=== PATIENT | male | born 1940 | race Caucasian/White ===

== ENCOUNTER → 2017-09-28 08:56 | Outpatient (CLI) | payer MEDICARE, OTHER, SELFPAY ==
--- NOTE | 2017-09-28 | DI.MRI.S_ITS ---
PROCEDURE: MR LUMBAR SPINE WO CON INDICATIONS: Lumbar spinal stenosis TECHNIQUE: Noncontrast sagittal T1 spin echo and T2 fast echo, sagittal STIR, axial T1 and T2 fast spin echo through the lumbar spine. In cases with scoliosis, additional coronal T2 fast spin echo may be performed. COMPARISON: [facility] [place], CR, SPINE LUMB MIN 4VW, 08/27/2015, 10:40. [facility], , L-SPINE WITHOUT CONTRAST, 09/06/2015, 17:14. FINDINGS: Image quality: Excellent. Alignment and Curvature: There is normal bony alignment. Bone Marrow: Degenerative endplate signal changes at L1, L4, L5 and S1. No acute vertebral body compression fractures. Spinal Cord: Conus medullaris terminates at the T12-L1 level. Visualized cord demonstrates normal signal and size. Paraspinous Soft Tissues: No paravertebral masses. L1-L2: Lbib-[id number] loss of disc height and disc desiccation. There is broad posterior disc bulge and disc osteophyte complex. Mild bilateral facet arthropathy. The central canal is mildly narrowed. Moderate bilateral foraminal stenosis, unchanged. L2-L3: Preserved disc height. Mild disc desiccation. There is mild posterior disc bulge. Mild bilateral facet arthropathy and hypertrophy of ligamentum flavum. The central canal is patent. No foraminal stenosis. L3-L4: Preserved disc height. Mild disc desiccation. There is mild posterior disc bulge. Mild bilateral facet arthropathy and hypertrophy of ligamentum flavum. The central canal is patent. No foraminal stenosis. L4-L5: [id number]-aa-zzxrnruw loss of disc height. Mild disc desiccation. There is broad posterior disc bulge. Mild bilateral facet arthropathy and hypertrophy of ligamentum flavum. The central canal is patent. Mild bilateral foraminal stenosis, unchanged. L5-S1: Severe loss of disc height and disc desiccation. There is broad posterior disc bulge. Mild bilateral facet arthropathy. The central canal is patent. Moderate to severe bilateral foraminal stenosis, unchanged. IMPRESSION: 1. 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 2. Mild central canal stenosis at L1-L2. 3. Multilevel foraminal stenoses, moderate to severe L5-S1 bilaterally, moderate at L1 at L2 bilaterally, and mild at L4-L5 bilaterally. Dictated by: Phyllis Quintanilla M.D. on 09/28/2017 at 13:49 Transcribed by: ANGELIA on 09/28/2017 at 13:57 Approved by: Phyllis Quintanilla M.D. on 09/28/2017 at 14:40
== END ==
PROVIDERS: PCP Internal Medicine; Visit Provider Physical Medicine & Rehabilitation Pain Medicine
DX: M48.061 Spinal stenosis, lumbar region without neurogenic claudication (principal); M51.36 Other intervertebral disc degeneration, lumbar region
CPT/HCPCS: 72148

== ENCOUNTER → 2018-01-11 14:01 | Outpatient (CLI) | payer MEDICARE, OTHER, SELFPAY ==
[2018-01-11 15:04] LABS: Free T3, Triiodothyronine Free 3.11 pg/mL (2.77-5.27); Free T4, Direct Thyroxine 0.65 ng/dL (0.78-2.19); T4 Total Thyroxine 5.38 ug/dL (5.5-11.0); T7 (Free Thyroxine Index) 1.76 (1.65-3.89); Triiodothryronine T3 Uptake 32.8 % (23.5-40.5)
[2018-01-11 15:16] LABS: Thyroid Stimulating Hormone 3.17 uIU/mL (0.47-4.68)
== END ==
PROVIDERS: PCP Internal Medicine; Visit Provider Internal Medicine
DX: E03.9 Hypothyroidism, unspecified (principal)
CPT/HCPCS: 36415; 84436; 84439; 84443; 84479; 84481

== ENCOUNTER 2018-01-13 07:30 | Outpatient (RCR) | payer MEDICARE, OTHER, SELFPAY ==
--- NOTE | 2017-12-14 08:43 | PT.OIE ---
Current Diagnoses Strain of muscle, fascia and tendon of the posterior muscle group at thigh level, left thigh, initial encounter (12/13/17) Provider Visit Care Team Role Provider Type Juliano Chaves MD Primary Care Provider Physician Specialty: Internal Medicine Address: [address] [place] [address], [id number] Email: Iam Patricio MD Attending Provider Physician Specialty: Physical Medicine and Rehab Address: [address] [place] [address], [id number] Email: Physical Therapy Initial Evaluation PT-OP-A Visit Information Start: 12/13/17 14:24 Freq: Status: Active Protocol: Document 12/13/17 14:25 EA (Rec: 12/13/17 14:29 EA [id number]) Out-Patient Physical Therapy Visit Information Visit Information Visit Type Initial Evaluation Visit Start Time 13:45 Visit Stop Time 14:30 Total Visit Minutes 1 Evaluation Information Evaluation Date 12/13/17 PT-OP-B Current Condition Start: 12/13/17 14:24 Freq: Status: Active Protocol: Document 12/13/17 14:25 EA (Rec: 12/13/17 14:29 EA [id number]) Current Condition History of Current Condition Onset Date 2 weeks ago History of Current Condition Present condition started two weeks ago while participating in a half marathon event in [place]. Pt reports he felt initially cramp at the left posterior thigh that made him slow down; patient denies any popping sound during the injury and did not see any bruises or hematoma. Patient applied ICE and rest after the event but pain and difficulty of getting back to usual speed of walking still persist , however is improving. Patient seen his doctor due his back pain which a chronic issue and requested to have referral for his left thigh. Patient was then referred to PT with a diagnosis of left hamstring strain and low back pain. Patient reports he comes today for the main purpose of improving left hamstring but not the low back pain as he mentioned that he is having low back optional treatment. No MRI or other imaging for the knee/thigh performed recently . Prior Treatments and Tests 1st Low back cortizone shot Future Testing and Treatments Planned 2 cortizone shots remaining for lower back Treatment Goals Patient/Caregiver Goals Back to previous level of function, daily > 2 miles of walk Prior Functional Status Baseline Function- ADL's Independent Baseline Function- Mobility Independent Baseline Function- Recreation/Hobbies Daily long walks Current Functional Impairments (Reported) Functional Limitations- ADL's Indep Functional Limitations- Mobility/Gait Difficulty with increasing speed of walking Functional Limitations- Recreation/ Unable to participate with Hobbies marathon due to pain PT-OP-C Subjective Start: 12/13/17 14:24 Freq: Status: Active Protocol: Document 12/13/17 16:55 EA (Rec: 12/13/17 17:15 EA [id number]) OP-PT Subjective Patient Comments Patient Comments Pt wants to get better and so he could back to his daily speed walk. Patient Reported Progress Improving Patient Questionnaires Lower Extremity Functional Scale LEFS Score 55 LEFS Impairment 20 to 39% Impaired (Score 48- 62) OP-PT Pain Assessment Pain Assessment Grid Paper Pain Assessment Grid Completed Yes Home Pain Medication Use Pain Medications Used No Pain Behaviors Pain Behaviors Moaning Comments Pain Comments Pain was enough to stop wlaking and/or altered gait PT-OP-G Mobility & Gait Start: 12/13/17 14:24 Freq: Status: Active Protocol: Document 12/13/17 16:55 EA (Rec: 12/13/17 17:15 EA [id number]) OP Gait Assessment Gait Gait Assistance Required: Independent Able to Maintain Weight Bearing Status Yes During Gait Assistive Devices Assistive Device None Gait Deviations General Gait Pattern Antalgic Comments Gait Comments Increased speed altered normal gait into antalgic PT-OP-J Posture/Palpation/Skin Start: 12/13/17 14:24 Freq: Status: Active Protocol: Document 12/13/17 16:55 EA (Rec: 12/13/17 17:15 EA [id number]) Posture Evaluation Position Standing Pelvis Posture Posterior Tilted Knee Posture (L) Neutral (R) Neutral Patellar Posture (L) Neutral (R) Neutral Ankle/Foot Posture (L) Neutral (R) Neutral Palpation Assessment Location One Palpation Location Posterior left thigh Palpation Findings Soft Tissue Tightness Tenderness PT-OP-K Range of Motion Start: 12/13/17 14:24 Freq: Status: Active Protocol: Document 12/13/17 16:55 EA (Rec: 12/13/17 17:15 EA [id number]) Hip Goniometric Range of Motion Hip Measured in Degrees Left Active Hip ROM WFL Yes Knee Goniometric Range of Motion Knee Measured in Degrees Right Knee ROM WFL Yes Left Knee ROM WFL Yes PT-OP-L Special Tests Start: 12/13/17 14:24 Freq: Status: Active Protocol: Document 12/13/17 16:55 EA (Rec: 12/13/17 17:15 EA [id number]) Special Tests Hip Special Tests Straight Leg Raise Test Results negative Crystal's Test Test Results Tight RF Knee Special Tests Mansoor's Test Test Results - Other Special Tests Special Tests Positive with 90-90: hmastring tightness PT-OP-M Strength Start: 12/13/17 14:24 Freq: Status: Active Protocol: Document 12/13/17 16:55 EA (Rec: 12/13/17 17:15 EA [id number]) Hip Strength Hip Manual Muscle Testing Right Flexion (L2) 5 Normal Extension (S1) 5 Normal Abduction 5 Normal Adduction 5 Normal External Rotation 5 Normal Internal Rotation 5 Normal Left Flexion (L2) 5 Normal Extension (S1) 4 Good Abduction 5 Normal Adduction 5 Normal External Rotation 5 Normal Internal Rotation 5 Normal Knee Strength Knee Manual Muscle Testing Right Flexion (S2) 5 Normal Reason Not Measured WFL Left Flexion (S2) 4- Good- Extension (L3) 5 Normal PT-OP-Q Treatments Start: 12/13/17 14:24 Freq: Status: Active Protocol: Document 12/13/17 16:55 EA (Rec: 12/13/17 17:15 EA [id number]) Self-Care/Home Management Treatment Education Patient Education Home Exercise Program Pain Management Other Education Discussed importance of warm- up, icing and self massage/ stretching. PT-OP-R Modalities Start: 12/13/17 14:24 Freq: Status: Active Protocol: Document 12/13/17 16:55 EA (Rec: 12/13/17 17:15 EA [id number]) Electric Stimulation Electric Stimulation Interferential Current (IFC) Body Location left hamstring midpoint Duration (Minutes) 15 Intensity 14 Patient Position Sidelying Combined With Heat/Cold Cold Pack Ultrasound Therapy Treatment Left Posterior Proximal Thigh Patient Position Prone Coupling Medium Ultrasound Gel Frequency Setting (mHz) 1 Mode Setting Continuous Duty Cycle 10% Intensity Setting (w/cm2) 1.5 PT-OP-T Assessment and Plan Start: 12/13/17 14:24 Freq: Status: Active Protocol: Document 12/13/17 16:55 EA (Rec: 12/13/17 17:15 EA [id number]) Physical Therapy Assessment Rehab Potential Rehabilitation Potential Excellent Evaluation Complexity Number of Personal Factors/Comorbidities 1-2 Number of Body Systems Impaired 1-2 Impairments Impairments Activity Tolerance Pain Soft Tissue Mobility Goals Four Impairment Decreased left knee flexors strength Supervisor Housecleaner Goal (LTG) Patient will increase left knee flexors strength by 1/2 grade to enhance functional walk. Three Impairment Grade 2 tenderness to left hamstring Supervisor Housecleaner Goal (LTG) Patient will exhibit no tenderness to left hamstring LTG Duration 4 wks Two Impairment Decreased soft tissue functional excursion hamstring and rectus femoris Prison Goal (LTG) Patient will exhibit normal normal hasmtring and rectus femoris flexibility to decreased/prevent injury and improve functional mobility. LTG Duration 4 wks One Impairment LEFS impairment scale of 33% impaired Supervisor Housecleaner Goal (LTG) Patient will have LEFS impairment scale of 15% impaired LTG Duration 4 wks Assessment Summary Assessment Pleasant 77 y/o male patient demonstrates difficulty with walking and sitting tolerance due to pain to left hamstring. Today patient exhibits grade 2 tenderness over left hamstring (origin, midpoint), minimal declined with knee flexor strength, decreased flexibility to hamstrings and rectus femoris. Tests reveals hamstring strain with no indication of partial or full tear. Patient will benefit with skilled PT to enhance recovery and bring back to previous level of function. Physical Therapy Plan Frequency and Duration Frequency of Treatment 2x/Week Duration of Treatment 8 wks Plan of Care Start Date 12/13/17 Plan of Care End Date 02/07/18 Therapeutic Interventions Therapeutic Interventions Home Exercise Program Manual Therapy Patient/Caregiver Education Self-Care/Home Management Soft Tissue Mobilization Therapeutic Exercises Modalities Cold Pack/Ice Massage Electric Stimulation Hot Packs Ultrasound Next Visit Focus/Plan Next Note Type Treatment Note Next Visit Plan US, STM,HEAT/ES, stretch
--- NOTE | 2017-12-14 08:45 | PT.OPPOC ---
Current Diagnoses Strain of muscle, fascia and tendon of the posterior muscle group at thigh level, left thigh, initial encounter (12/13/17) Provider Visit Care Team Role Provider Type Juliano Cahves MD Primary Care Provider Physician Specialty: Internal Medicine Address: [address] [place] [address], [phone] Email: Iam Patricio MD Attending Provider Physician Specialty: Physical Medicine and Rehab Address: [address] [place] [address], [phone] Email: Plan Of Care PT-OP-T Assessment and Plan Start: 12/13/17 14:24 Freq: Status: Active Protocol: Document 12/13/17 16:55 EA (Rec: 12/13/17 17:15 EA [id number]) Physical Therapy Assessment Rehab Potential Rehabilitation Potential Excellent Evaluation Complexity Number of Personal Factors/Comorbidities 1-2 Number of Body Systems Impaired 1-2 Impairments Impairments Activity Tolerance Pain Soft Tissue Mobility Goals Four Impairment Decreased left knee flexors strength Custodial Goal (LTG) Patient will increase left knee flexors strength by 1/2 grade to enhance functional walk. Three Impairment Grade 2 tenderness to left hamstring Custodial Goal (LTG) Patient will exhibit no tenderness to left hamstring LTG Duration 4 wks Two Impairment Decreased soft tissue functional excursion hamstring and rectus femoris Social Services Assistant Goal (LTG) Patient will exhibit normal normal hamstring and rectus femoris flexibility to decreased/prevent injury and improve functional mobility. LTG Duration 4 wks One Impairment LEFS impairment scale of 33% impaired Social Services Assistant Goal (LTG) Patient will have LEFS impairment scale of 15% impaired LTG Duration 4 wks Assessment Summary Assessment Pleasant 77 y/o male patient demonstrates difficulty with walking and sitting tolerance due to pain to left hamstring. Today patient exhibits grade 2 tenderness over left hamstring (origin, midpoint), minimal declined with knee flexor strength, decreased flexibility to hamstrings and rectus femoris. Tests reveals hamstring strain with no indication of partial or full tear. Patient will benefit with skilled PT to enhance recovery and bring back to previous level of function. Physical Therapy Plan Frequency and Duration Frequency of Treatment 2x/Week Duration of Treatment 8 wks Plan of Care Start Date 12/13/17 Plan of Care End Date 02/07/18 Therapeutic Interventions Therapeutic Interventions Home Exercise Program Manual Therapy Patient/Caregiver Education Self-Care/Home Management Soft Tissue Mobilization Therapeutic Exercises Modalities Cold Pack/Ice Massage Electric Stimulation Hot Packs Ultrasound Next Visit Focus/Plan Next Note Type Treatment Note Next Visit Plan US, STM,HEAT/ES, stretch Plan of Care Dates Plan of Care Start Date 12/13/17 Plan of Care End Date 02/07/18 Please Sign and Return: I have reviewed this Plan of Care and certify that the skilled therapy services above are required to meet the patient?s needs. Physician Signature Date Printed Name and Credentials Clinical Instructor Signature Printed Name and Credentials
--- NOTE | 2017-12-16 17:26 | PT.OTN ---
Current Diagnoses Strain of muscle, fascia and tendon of the posterior muscle group at thigh level, left thigh, initial encounter (12/16/17) Physical Therapy Treatment Note PT-OP-A Visit Information Start: 12/13/17 14:24 Freq: Status: Active Protocol: Document 12/16/17 15:56 EA (Rec: 12/16/17 15:57 EA [id number]) Out-Patient Physical Therapy Visit Information Visit Information Visit Type Treatment Note Visit Start Time 15:15 Visit Stop Time 16:00 Total Visit Minutes 2 PT-OP-B Current Condition Start: 12/13/17 14:24 Freq: Status: Active Protocol: Document 12/13/17 14:25 EA (Rec: 12/13/17 14:29 EA [id number]) Current Condition History of Current Condition Onset Date 2 weeks ago History of Current Condition Present condition started two weeks ago while participating in a half marathon event in [place]. Pt reports he felt initially cramp at the left posterior thigh that made him slow down; patient denies any popping sound during the injury and did not see any bruises or hematoma. Patient applied ICE and rest after the event but pain and difficulty of getting back to usual speed of walking still persist , however is improving. Patient seen his doctor due his back pain which a chronic issue and requested to have refferral for his left thigh. Patient was then referred to PT with a diagnosis of left hamstring strain and low back pain. Patient reports he comes today for the main purpose of improving left hamsting but not the low back pain as he mentioned that he is having low back optional treatment. No MRI or other imagin for the knee/thigh performed recently . Prior Treatments and Tests 1st Low back cortizone shot Future Testing and Treatments Planned 2 cortizone shots remaining for lower back Treatment Goals Patient/Caregiver Goals Back to previous level of function, daily > 2 miles of walk Prior Functional Status Baseline Function- ADL's Independent Baseline Function- Mobility Independent Baseline Function- Recreation/Hobbies Daily long walks Current Functional Impairments (Reported) Functional Limitations- ADL's Indep Functional Limitations- Mobility/Gait Difficulty with increasing speed of walking Functional Limitations- Recreation/ Unable to participate with Hobbies marthon due to pain PT-OP-C Subjective Start: 12/13/17 14:24 Freq: Status: Active Protocol: Document 12/16/17 15:56 EA (Rec: 12/16/17 15:57 EA [id number]) OP-PT Subjective Patient Comments Patient Comments Pt reports pain is less after ice application three times a day. Patient Reported Progress Improving PT-OP-G Mobility & Gait Start: 12/13/17 14:24 Freq: Status: Active Protocol: Document 12/13/17 16:55 EA (Rec: 12/13/17 17:15 EA [id number]) OP Gait Assessment Gait Gait Assistance Required: Independent Able to Maintain Weight Bearing Status Yes During Gait Assistive Devices Assistive Device None Gait Deviations General Gait Pattern Antalgic Comments Gait Comments Increased speed altered normal gait into antalgic PT-OP-J Posture/Palpation/Skin Start: 12/13/17 14:24 Freq: Status: Active Protocol: Document 12/13/17 16:55 EA (Rec: 12/13/17 17:15 EA [id number]) Posture Evaluation Position Standing Pelvis Posture Posterior Tilted Knee Posture (L) Neutral (R) Neutral Patellar Posture (L) Neutral (R) Neutral Ankle/Foot Posture (L) Neutral (R) Neutral Palpation Assessment Location One Palpation Location Posterior left thigh Palpation Findings Soft Tissue Tightness Tenderness PT-OP-K Range of Motion Start: 12/13/17 14:24 Freq: Status: Active Protocol: Document 12/13/17 16:55 EA (Rec: 12/13/17 17:15 EA [id number]) Hip Goniometric Range of Motion Hip Measured in Degrees Left Active Hip ROM WFL Yes Knee Goniometric Range of Motion Knee Measured in Degrees Right Knee ROM WFL Yes Left Knee ROM WFL Yes PT-OP-L Special Tests Start: 12/13/17 14:24 Freq: Status: Active Protocol: Document 12/13/17 16:55 EA (Rec: 12/13/17 17:15 EA [id number]) Special Tests Hip Special Tests Straight Leg Raise Test Results negative Crystal's Test Test Results Tight RF Knee Special Tests Mansoor's Test Test Results - Other Special Tests Special Tests Positive with 90-90: hmastring tightness PT-OP-M Strength Start: 12/13/17 14:24 Freq: Status: Active Protocol: Document 12/13/17 16:55 EA (Rec: 12/13/17 17:15 EA [id number]) Hip Strength Hip Manual Muscle Testing Right Flexion (L2) 5 Normal Extension (S1) 5 Normal Abduction 5 Normal Adduction 5 Normal External Rotation 5 Normal Internal Rotation 5 Normal Left Flexion (L2) 5 Normal Extension (S1) 4 Good Abduction 5 Normal Adduction 5 Normal External Rotation 5 Normal Internal Rotation 5 Normal Knee Strength Knee Manual Muscle Testing Right Flexion (S2) 5 Normal Reason Not Measured WFL Left Flexion (S2) 4- Good- Extension (L3) 5 Normal PT-OP-Q Treatments Start: 12/13/17 14:24 Freq: Status: Active Protocol: Document 12/16/17 15:24 EA (Rec: 12/16/17 15:56 EA [id number]) Therapeutic Exercises Supine Exercises 1 Supine Exercise Name Hams stretch Side left Prone Exercises 1 Prone Exercise Name quads stretch Manual Therapy Treatment Soft Tissue Mobilization 1 Body Location left Hams Mobilization Type Myofascial Release Rolling Sustained Pressure Intensity/Depth Moderate Body Position Prone PT-OP-R Modalities Start: 12/13/17 14:24 Freq: Status: Active Protocol: Document 12/16/17 15:24 EA (Rec: 12/16/17 15:56 EA [id number]) Electric Stimulation Electric Stimulation Interferential Current (IFC) Body Location left hamstring midpoint Duration (Minutes) 15 Intensity 14 Patient Position Sidelying Combined With Heat/Cold Cold Pack Hot Pack/Cold Pack Treatment Hot Pack Location left hamstring/ pralumbars Patient Position Prone Treatment Duration (minutes) 8 Comments apply before insonation PT-OP-T Assessment and Plan Start: 12/13/17 14:24 Freq: Status: Active Protocol: Document 12/16/17 15:24 EA (Rec: 12/16/17 15:56 EA [id number]) Physical Therapy Assessment Assessment Summary Assessment Tolerated tretament well. Physical Therapy Plan Next Visit Focus/Plan Next Visit Plan Cont with current plan
--- NOTE | 2017-12-21 14:00 | PT.OTN ---
Current Diagnoses Strain of muscle, fascia and tendon of the posterior muscle group at thigh level, left thigh, initial encounter (12/21/17) Physical Therapy Treatment Note PT-OP-A Visit Information Start: 12/13/17 14:24 Freq: Status: Active Protocol: Document 12/21/17 13:34 EA (Rec: 12/21/17 13:41 EA [id number]) Out-Patient Physical Therapy Visit Information Visit Information Visit Type Treatment Note Visit Start Time 13:00 Visit Stop Time 13:53 Total Visit Minutes 3 PT-OP-B Current Condition Start: 12/13/17 14:24 Freq: Status: Active Protocol: Document 12/13/17 14:25 EA (Rec: 12/13/17 14:29 EA [id number]) Current Condition History of Current Condition Onset Date 2 weeks ago History of Current Condition Present condition started two weeks ago while participating in a half marathon event in [place]. Pt reports he felt initially cramp at the left posterior thigh that made him slow down; patient denies any popping sound during the injury and did not see any bruises or hematoma. Patient applied ICE and rest after the event but pain and difficulty of getting back to usual speed of walking still persist , however is improving. Patient seen his doctor due his back pain which a chronic issue and requested to have referral for his left thigh. Patient was then referred to PT with a diagnosis of left hamstring strain and low back pain. Patient reports he comes today for the main purpose of improving left hamsting but not the low back pain as he mentioned that he is having low back optional treatment. No MRI or other imaging for the knee/thigh performed recently . Prior Treatments and Tests 1st Low back cortizone shot Future Testing and Treatments Planned 2 cortizone shots remaining for lower back Treatment Goals Patient/Caregiver Goals Back to previous level of function, daily > 2 miles of walk Prior Functional Status Baseline Function- ADL's Independent Baseline Function- Mobility Independent Baseline Function- Recreation/Hobbies Daily long walks Current Functional Impairments (Reported) Functional Limitations- ADL's Indep Functional Limitations- Mobility/Gait Difficulty with increasing speed of walking Functional Limitations- Recreation/ Unable to participate with Hobbies marthon due to pain PT-OP-C Subjective Start: 12/13/17 14:24 Freq: Status: Active Protocol: Document 12/21/17 13:34 EA (Rec: 12/21/17 13:41 EA [id number]) OP-PT Subjective Patient Comments Patient Comments Pt reports able to wlak more than 3 miles with very less muscle tightness at this time; states that he is feeling much better at this time. PT-OP-G Mobility & Gait Start: 12/13/17 14:24 Freq: Status: Active Protocol: Document 12/13/17 16:55 EA (Rec: 12/13/17 17:15 EA [id number]) OP Gait Assessment Gait Gait Assistance Required: Independent Able to Maintain Weight Bearing Status Yes During Gait Assistive Devices Assistive Device None Gait Deviations General Gait Pattern Antalgic Comments Gait Comments Increased speed altered normal gait into antalgic PT-OP-J Posture/Palpation/Skin Start: 12/13/17 14:24 Freq: Status: Active Protocol: Document 12/13/17 16:55 EA (Rec: 12/13/17 17:15 EA [id number]) Posture Evaluation Position Standing Pelvis Posture Posterior Tilted Knee Posture (L) Neutral (R) Neutral Patellar Posture (L) Neutral (R) Neutral Ankle/Foot Posture (L) Neutral (R) Neutral Palpation Assessment Location One Palpation Location Posterior left thigh Palpation Findings Soft Tissue Tightness Tenderness PT-OP-K Range of Motion Start: 12/13/17 14:24 Freq: Status: Active Protocol: Document 12/13/17 16:55 EA (Rec: 12/13/17 17:15 EA [id number]) Hip Goniometric Range of Motion Hip Measured in Degrees Left Active Hip ROM WFL Yes Knee Goniometric Range of Motion Knee Measured in Degrees Right Knee ROM WFL Yes Left Knee ROM WFL Yes PT-OP-L Special Tests Start: 12/13/17 14:24 Freq: Status: Active Protocol: Document 12/13/17 16:55 EA (Rec: 12/13/17 17:15 EA [id number]) Special Tests Hip Special Tests Straight Leg Raise Test Results negative Crystal's Test Test Results Tight RF Knee Special Tests Mansoor's Test Test Results - Other Special Tests Special Tests Positive with 90-90: hmastring tightness PT-OP-M Strength Start: 12/13/17 14:24 Freq: Status: Active Protocol: Document 12/13/17 16:55 EA (Rec: 12/13/17 17:15 EA [id number]) Hip Strength Hip Manual Muscle Testing Right Flexion (L2) 5 Normal Extension (S1) 5 Normal Abduction 5 Normal Adduction 5 Normal External Rotation 5 Normal Internal Rotation 5 Normal Left Flexion (L2) 5 Normal Extension (S1) 4 Good Abduction 5 Normal Adduction 5 Normal External Rotation 5 Normal Internal Rotation 5 Normal Knee Strength Knee Manual Muscle Testing Right Flexion (S2) 5 Normal Reason Not Measured WFL Left Flexion (S2) 4- Good- Extension (L3) 5 Normal PT-OP-Q Treatments Start: 12/13/17 14:24 Freq: Status: Active Protocol: Document 12/21/17 13:34 EA (Rec: 12/21/17 13:41 EA [id number]) Therapeutic Exercises Supine Exercises 1 Supine Exercise Name Hams stretch Side left Prone Exercises 2 Prone Exercise Name prone knee bending Side left Resistance 2 lbs Reps/Minutes x 15 reps x 2 1 Prone Exercise Name quads stretch Manual Therapy Treatment Soft Tissue Mobilization 1 Body Location left Hams Mobilization Type Myofascial Release Rolling Sustained Pressure Intensity/Depth Moderate Body Position Prone PT-OP-R Modalities Start: 12/13/17 14:24 Freq: Status: Active Protocol: Document 12/21/17 13:34 EA (Rec: 12/21/17 13:41 EA [id number]) Electric Stimulation Electric Stimulation Interferential Current (IFC) Body Location left hamstring midpoint Duration (Minutes) 15 Intensity 14 Patient Position Prone Combined With Heat/Cold Cold Pack Ultrasound Therapy Treatment Left Posterior Proximal Thigh Patient Position Prone Coupling Medium Ultrasound Gel Frequency Setting (mHz) 1 Mode Setting Continuous Intensity Setting (w/cm2) 1.5 PT-OP-T Assessment and Plan Start: 12/13/17 14:24 Freq: Status: Active Protocol: Document 12/21/17 13:34 EA (Rec: 12/21/17 13:41 EA [id number]) Physical Therapy Assessment Assessment Summary Assessment Less tightness at this time. Patient is progressing well. Physical Therapy Plan Next Visit Focus/Plan Next Note Type Treatment Note Next Visit Plan Cont with current plan
--- NOTE | 2017-12-23 13:33 | PT.OTN ---
Current Diagnoses Strain of muscle, fascia and tendon of the posterior muscle group at thigh level, left thigh, initial encounter (12/23/17) Physical Therapy Treatment Note PT-OP-A Visit Information Start: 12/13/17 14:24 Freq: Status: Active Protocol: Document 12/23/17 12:14 EA (Rec: 12/23/17 12:57 EA [id number]) Out-Patient Physical Therapy Visit Information Visit Information Visit Type Treatment Note Visit Start Time 13:00 Visit Stop Time 13:53 Total Visit Minutes 4 PT-OP-B Current Condition Start: 12/13/17 14:24 Freq: Status: Active Protocol: Document 12/13/17 14:25 EA (Rec: 12/13/17 14:29 EA [id number]) Current Condition History of Current Condition Onset Date 2 weeks ago History of Current Condition Present condition started two weeks ago while participating in a half marathon event in [place]. Pt reports he felt initially cramp at the left posterior thigh that made him slow down; patient denies any popping sound during the injury and did not see any bruises or hematoma. Patient applied ICE and rest after the event but pain and difficulty of getting back to usual speed of walking still persist , however is improving. Patient seen his doctor due his back pain which a chronic issue and requested to have refferral for his left thigh. Patient was then referred to PT with a diagnosis of left hamstring strain and low back pain. Patient reports he comes today for the main purpose of improving left hamsting but not the low back pain as he mentioned that he is having low back optional treatment. No MRI or other imagin for the knee/thigh performed recently . Prior Treatments and Tests 1st Low back cortizone shot Future Testing and Treatments Planned 2 cortizone shots remaining for lower back Treatment Goals Patient/Caregiver Goals Back to previous level of function, daily > 2 miles of walk Prior Functional Status Baseline Function- ADL's Independent Baseline Function- Mobility Independent Baseline Function- Recreation/Hobbies Daily long walks Current Functional Impairments (Reported) Functional Limitations- ADL's Indep Functional Limitations- Mobility/Gait Difficulty with increasing speed of walking Functional Limitations- Recreation/ Unable to participate with Hobbies marthon due to pain PT-OP-C Subjective Start: 12/13/17 14:24 Freq: Status: Active Protocol: Document 12/23/17 12:14 EA (Rec: 12/23/17 12:57 EA [id number]) OP-PT Subjective Patient Comments Patient Comments Pt reports had an interval speed walks and no reports of condition aggravation. Overall patient reports he's feeling great. PT-OP-G Mobility & Gait Start: 12/13/17 14:24 Freq: Status: Active Protocol: Document 12/13/17 16:55 EA (Rec: 12/13/17 17:15 EA [id number]) OP Gait Assessment Gait Gait Assistance Required: Independent Able to Maintain Weight Bearing Status Yes During Gait Assistive Devices Assistive Device None Gait Deviations General Gait Pattern Antalgic Comments Gait Comments Increased speed altered normal gait into antalgic PT-OP-J Posture/Palpation/Skin Start: 12/13/17 14:24 Freq: Status: Active Protocol: Document 12/13/17 16:55 EA (Rec: 12/13/17 17:15 EA [id number]) Posture Evaluation Position Standing Pelvis Posture Posterior Tilted Knee Posture (L) Neutral (R) Neutral Patellar Posture (L) Neutral (R) Neutral Ankle/Foot Posture (L) Neutral (R) Neutral Palpation Assessment Location One Palpation Location Posterior left thigh Palpation Findings Soft Tissue Tightness Tenderness PT-OP-K Range of Motion Start: 12/13/17 14:24 Freq: Status: Active Protocol: Document 12/13/17 16:55 EA (Rec: 12/13/17 17:15 EA [id number]) Hip Goniometric Range of Motion Hip Measured in Degrees Left Active Hip ROM WFL Yes Knee Goniometric Range of Motion Knee Measured in Degrees Right Knee ROM WFL Yes Left Knee ROM WFL Yes PT-OP-L Special Tests Start: 12/13/17 14:24 Freq: Status: Active Protocol: Document 12/13/17 16:55 EA (Rec: 12/13/17 17:15 EA [id number]) Special Tests Hip Special Tests Straight Leg Raise Test Results negative Crystal's Test Test Results Tight RF Knee Special Tests Mansoor's Test Test Results - Other Special Tests Special Tests Positive with 90-90: hmastring tightness PT-OP-M Strength Start: 12/13/17 14:24 Freq: Status: Active Protocol: Document 12/13/17 16:55 EA (Rec: 12/13/17 17:15 EA [id number]) Hip Strength Hip Manual Muscle Testing Right Flexion (L2) 5 Normal Extension (S1) 5 Normal Abduction 5 Normal Adduction 5 Normal External Rotation 5 Normal Internal Rotation 5 Normal Left Flexion (L2) 5 Normal Extension (S1) 4 Good Abduction 5 Normal Adduction 5 Normal External Rotation 5 Normal Internal Rotation 5 Normal Knee Strength Knee Manual Muscle Testing Right Flexion (S2) 5 Normal Reason Not Measured WFL Left Flexion (S2) 4- Good- Extension (L3) 5 Normal PT-OP-Q Treatments Start: 12/13/17 14:24 Freq: Status: Active Protocol: Document 12/23/17 12:14 EA (Rec: 12/23/17 12:57 EA [id number]) Cardio Equipment Treadmill Duration (Minutes) 5 Speed 3-4.5 Other inetrval 30 seconds up speed Therapeutic Exercises Supine Exercises 2 Supine Exercise Name duoble to single bridge Reps/Minutes x 10 reps x 2 1 Supine Exercise Name Hams stretch Side left Prone Exercises 2 Prone Exercise Name prone knee bending Side left Resistance 4.5 lbs Reps/Minutes x 15 reps x 2 1 Prone Exercise Name quads stretch Manual Therapy Treatment Soft Tissue Mobilization 1 Body Location left Hams Mobilization Type Myofascial Release Rolling Sustained Pressure Intensity/Depth Moderate Body Position Prone PT-OP-R Modalities Start: 12/13/17 14:24 Freq: Status: Active Protocol: Document 12/23/17 12:14 EA (Rec: 12/23/17 12:57 EA [id number]) Electric Stimulation Electric Stimulation Interferential Current (IFC) Body Location left hamstring midpoint Duration (Minutes) 15 Intensity 14 Patient Position Sidelying Combined With Heat/Cold Hot Pack PT-OP-T Assessment and Plan Start: 12/13/17 14:24 Freq: Status: Active Protocol: Document 12/23/17 12:14 EA (Rec: 12/23/17 12:57 EA [id number]) Physical Therapy Assessment Assessment Summary Assessment Tolerated treatment well; patient is progressing well. Cont with current plan. Physical Therapy Plan Next Visit Focus/Plan Next Note Type Treatment Note Next Visit Plan Cont with current plan
--- NOTE | 2017-12-28 16:46 | PT.OTN ---
Current Diagnoses Strain of muscle, fascia and tendon of the posterior muscle group at thigh level, left thigh, initial encounter (12/28/17) Physical Therapy Treatment Note PT-OP-A Visit Information Start: 12/13/17 14:24 Freq: Status: Active Protocol: Document 12/28/17 14:28 EA (Rec: 12/28/17 15:53 EA [id number]) Out-Patient Physical Therapy Visit Information Visit Information Visit Type Treatment Note Visit Start Time 14:30 Visit Stop Time 15:23 Total Visit Minutes 53 Visit Number 5 PT-OP-B Current Condition Start: 12/13/17 14:24 Freq: Status: Active Protocol: Document 12/13/17 14:25 EA (Rec: 12/13/17 14:29 EA [id number]) Current Condition History of Current Condition Onset Date 2 weeks ago History of Current Condition Present condition started two weeks ago while participating in a half marathon event in [place]. Pt reports he felt initially cramp at the left posterior thigh that made him slow down; patient denies any popping sound during the injury and did not see any bruises or hematoma. Patient applied ICE and rest after the event but pain and difficulty of getting back to usual speed of walking still persist , however is improving. Patient seen his doctor due his back pain which a chronic issue and requested to have refferral for his left thigh. Patient was then referred to PT with a diagnosis of left hamstring strain and low back pain. Patient reports he comes today for the main purpose of improving left hamsting but not the low back pain as he mentioned that he is having low back optional treatment. No MRI or other imagin for the knee/thigh performed recently . Prior Treatments and Tests 1st Low back cortizone shot Future Testing and Treatments Planned 2 cortizone shots remaining for lower back Treatment Goals Patient/Caregiver Goals Back to previous level of function, daily > 2 miles of walk Prior Functional Status Baseline Function- ADL's Independent Baseline Function- Mobility Independent Baseline Function- Recreation/Hobbies Daily long walks Current Functional Impairments (Reported) Functional Limitations- ADL's Indep Functional Limitations- Mobility/Gait Difficulty with increasing speed of walking Functional Limitations- Recreation/ Unable to participate with Hobbies marthon due to pain PT-OP-C Subjective Start: 12/13/17 14:24 Freq: Status: Active Protocol: Document 12/28/17 14:28 EA (Rec: 12/28/17 15:53 EA [id number]) OP-PT Subjective Patient Comments Patient Comments Pt reports left hamstring pain increased after interval speed walking; states consistent with ICE application and is getting better at this time. Patient Reported Progress Improving PT-OP-G Mobility & Gait Start: 12/13/17 14:24 Freq: Status: Active Protocol: Document 12/13/17 16:55 EA (Rec: 12/13/17 17:15 EA [id number]) OP Gait Assessment Gait Gait Assistance Required: Independent Able to Maintain Weight Bearing Status Yes During Gait Assistive Devices Assistive Device None Gait Deviations General Gait Pattern Antalgic Comments Gait Comments Increased speed altered normal gait into antalgic PT-OP-J Posture/Palpation/Skin Start: 12/13/17 14:24 Freq: Status: Active Protocol: Document 12/13/17 16:55 EA (Rec: 12/13/17 17:15 EA [id number]) Posture Evaluation Position Standing Pelvis Posture Posterior Tilted Knee Posture (L) Neutral (R) Neutral Patellar Posture (L) Neutral (R) Neutral Ankle/Foot Posture (L) Neutral (R) Neutral Palpation Assessment Location One Palpation Location Posterior left thigh Palpation Findings Soft Tissue Tightness Tenderness PT-OP-K Range of Motion Start: 12/13/17 14:24 Freq: Status: Active Protocol: Document 12/13/17 16:55 EA (Rec: 12/13/17 17:15 EA [id number]) Hip Goniometric Range of Motion Hip Measured in Degrees Left Active Hip ROM WFL Yes Knee Goniometric Range of Motion Knee Measured in Degrees Right Knee ROM WFL Yes Left Knee ROM WFL Yes PT-OP-L Special Tests Start: 12/13/17 14:24 Freq: Status: Active Protocol: Document 12/13/17 16:55 EA (Rec: 12/13/17 17:15 EA [id number]) Special Tests Hip Special Tests Straight Leg Raise Test Results negative Crystal's Test Test Results Tight RF Knee Special Tests Mansoor's Test Test Results - Other Special Tests Special Tests Positive with 90-90: hmastring tightness PT-OP-M Strength Start: 12/13/17 14:24 Freq: Status: Active Protocol: Document 12/13/17 16:55 EA (Rec: 12/13/17 17:15 EA [id number]) Hip Strength Hip Manual Muscle Testing Right Flexion (L2) 5 Normal Extension (S1) 5 Normal Abduction 5 Normal Adduction 5 Normal External Rotation 5 Normal Internal Rotation 5 Normal Left Flexion (L2) 5 Normal Extension (S1) 4 Good Abduction 5 Normal Adduction 5 Normal External Rotation 5 Normal Internal Rotation 5 Normal Knee Strength Knee Manual Muscle Testing Right Flexion (S2) 5 Normal Reason Not Measured WFL Left Flexion (S2) 4- Good- Extension (L3) 5 Normal PT-OP-Q Treatments Start: 12/13/17 14:24 Freq: Status: Active Protocol: Document 12/28/17 14:28 EA (Rec: 12/28/17 15:53 EA [id number]) Cardio Equipment Treadmill Duration (Minutes) 5 Speed 2-3: elav 6 Other Cont Therapeutic Exercises Supine Exercises 2 Supine Exercise Name duoble to single bridge Reps/Minutes x 10 reps x 2 1 Supine Exercise Name Hams stretch Side left Prone Exercises 2 Prone Exercise Name prone knee bending Side left Resistance 4.5 lbs Reps/Minutes x 15 reps x 2 1 Prone Exercise Name quads stretch Manual Therapy Treatment Soft Tissue Mobilization 1 Body Location left Hams Mobilization Type Myofascial Release Rolling Sustained Pressure Intensity/Depth Moderate Body Position Prone PT-OP-R Modalities Start: 12/13/17 14:24 Freq: Status: Active Protocol: Document 12/28/17 14:28 EA (Rec: 12/28/17 15:53 EA [id number]) Electric Stimulation Electric Stimulation Interferential Current (IFC) Body Location left hamstring midpoint Duration (Minutes) 15 Intensity 14 Patient Position Sidelying Combined With Heat/Cold Hot Pack Ultrasound Therapy Treatment Left Posterior Proximal Thigh Treatment Duration (minutes) 5 Patient Position Prone Coupling Medium Ultrasound Gel Frequency Setting (mHz) 1 Mode Setting Continuous Intensity Setting (w/cm2) 1.5 Comments Disto lateral post thigh PT-OP-T Assessment and Plan Start: 12/13/17 14:24 Freq: Status: Active Protocol: Document 12/28/17 14:28 EA (Rec: 12/28/17 15:53 EA [id number]) Physical Therapy Assessment Assessment Summary Assessment No signs of increased symptoms after session. Advised to refrain from interval cardio. Recommends to ICE and perform knee bending ROM. Physical Therapy Plan Next Visit Focus/Plan Next Note Type Treatment Note Next Visit Plan Cont with current plan
--- NOTE | 2017-12-30 10:30 | PT.OTN ---
Current Diagnoses Strain of muscle, fascia and tendon of the posterior muscle group at thigh level, left thigh, initial encounter (12/30/17) Physical Therapy Treatment Note PT-OP-A Visit Information Start: 12/13/17 14:24 Freq: Status: Active Protocol: Document 12/30/17 10:30 RCC (Rec: 12/30/17 10:57 RCC [id number]) Out-Patient Physical Therapy Visit Information Visit Information Visit Type Treatment Note Visit Start Time 09:45 Visit Stop Time 10:45 Total Visit Minutes 60 Visit Number 6 PT-OP-B Current Condition Start: 12/13/17 14:24 Freq: Status: Active Protocol: Document 12/13/17 14:25 EA (Rec: 12/13/17 14:29 EA [id number]) Current Condition History of Current Condition Onset Date 2 weeks ago History of Current Condition Present condition started two weeks ago while participating in a half marathon event in [place]. Pt reports he felt initially cramp at the left posterior thigh that made him slow down; patient denies any popping sound during the injury and did not see any bruises or hematoma. Patient applied ICE and rest after the event but pain and difficulty of getting back to usual speed of walking still persist , however is improving. Patient seen his doctor due his back pain which a chronic issue and requested to have refferral for his left thigh. Patient was then referred to PT with a diagnosis of left hamstring strain and low back pain. Patient reports he comes today for the main purpose of improving left hamsting but not the low back pain as he mentioned that he is having low back optional treatment. No MRI or other imagin for the knee/thigh performed recently . Prior Treatments and Tests 1st Low back cortizone shot Future Testing and Treatments Planned 2 cortizone shots remaining for lower back Treatment Goals Patient/Caregiver Goals Back to previous level of function, daily > 2 miles of walk Prior Functional Status Baseline Function- ADL's Independent Baseline Function- Mobility Independent Baseline Function- Recreation/Hobbies Daily long walks Current Functional Impairments (Reported) Functional Limitations- ADL's Indep Functional Limitations- Mobility/Gait Difficulty with increasing speed of walking Functional Limitations- Recreation/ Unable to participate with Hobbies marthon due to pain PT-OP-C Subjective Start: 12/13/17 14:24 Freq: Status: Active Protocol: Document 12/30/17 10:30 RCC (Rec: 12/30/17 10:57 RCC [email or web address]) OP-PT Subjective Patient Comments Patient Comments Pt is up to 20+ miles walking this week, some tension but no increase in pain. His gluteals are sore. PT-OP-G Mobility & Gait Start: 12/13/17 14:24 Freq: Status: Active Protocol: Document 12/13/17 16:55 EA (Rec: 12/13/17 17:15 EA [id number]) OP Gait Assessment Gait Gait Assistance Required: Independent Able to Maintain Weight Bearing Status Yes During Gait Assistive Devices Assistive Device None Gait Deviations General Gait Pattern Antalgic Comments Gait Comments Increased speed altered normal gait into antalgic PT-OP-J Posture/Palpation/Skin Start: 12/13/17 14:24 Freq: Status: Active Protocol: Document 12/13/17 16:55 EA (Rec: 12/13/17 17:15 EA [id number]) Posture Evaluation Position Standing Pelvis Posture Posterior Tilted Knee Posture (L) Neutral (R) Neutral Patellar Posture (L) Neutral (R) Neutral Ankle/Foot Posture (L) Neutral (R) Neutral Palpation Assessment Location One Palpation Location Posterior left thigh Palpation Findings Soft Tissue Tightness Tenderness PT-OP-K Range of Motion Start: 12/13/17 14:24 Freq: Status: Active Protocol: Document 12/13/17 16:55 EA (Rec: 12/13/17 17:15 EA [id number]) Hip Goniometric Range of Motion Hip Measured in Degrees Left Active Hip ROM WFL Yes Knee Goniometric Range of Motion Knee Measured in Degrees Right Knee ROM WFL Yes Left Knee ROM WFL Yes PT-OP-L Special Tests Start: 12/13/17 14:24 Freq: Status: Active Protocol: Document 12/13/17 16:55 EA (Rec: 12/13/17 17:15 EA [id number]) Special Tests Hip Special Tests Straight Leg Raise Test Results negative Crystal's Test Test Results Tight RF Knee Special Tests Mansoor's Test Test Results - Other Special Tests Special Tests Positive with 90-90: hmastring tightness PT-OP-M Strength Start: 12/13/17 14:24 Freq: Status: Active Protocol: Document 12/13/17 16:55 EA (Rec: 12/13/17 17:15 EA [id number]) Hip Strength Hip Manual Muscle Testing Right Flexion (L2) 5 Normal Extension (S1) 5 Normal Abduction 5 Normal Adduction 5 Normal External Rotation 5 Normal Internal Rotation 5 Normal Left Flexion (L2) 5 Normal Extension (S1) 4 Good Abduction 5 Normal Adduction 5 Normal External Rotation 5 Normal Internal Rotation 5 Normal Knee Strength Knee Manual Muscle Testing Right Flexion (S2) 5 Normal Reason Not Measured WFL Left Flexion (S2) 4- Good- Extension (L3) 5 Normal PT-OP-Q Treatments Start: 12/13/17 14:24 Freq: Status: Active Protocol: Document 12/30/17 10:30 RCC (Rec: 12/30/17 10:57 RCC [email or web address]) Cardio Equipment Treadmill Duration (Minutes) 5 Speed 2-3: elav 6 Other Cont Therapeutic Exercises Supine Exercises 2 Supine Exercise Name double to single bridge Reps/Minutes x 10 reps x 2 1 Supine Exercise Name Hams stretch Side bilateral Standing Exercises 2 Standing Exercise Name hip extension Side bilateral Resistance L2 band Reps/Minutes 2x10 1 Standing Exercise Name standing HS curls Side left Comments emphasis on technique Manual Therapy Treatment Soft Tissue Mobilization 2 Body Location left IT band Mobilization Type Rolling Intensity/Depth Moderate Body Position Prone 1 Body Location left Hams Mobilization Type Myofascial Release Rolling Sustained Pressure Intensity/Depth Moderate Body Position Prone PT-OP-R Modalities Start: 12/13/17 14:24 Freq: Status: Active Protocol: Document 12/30/17 10:30 RCC (Rec: 12/30/17 10:57 RCC [email or web address]) Electric Stimulation Electric Stimulation Interferential Current (IFC) Body Location left hamstring midpoint Duration (Minutes) 15 Intensity 21 Patient Position Sidelying Combined With Heat/Cold Hot Pack Ultrasound Therapy Treatment Left Posterior Proximal Thigh Treatment Duration (minutes) 8 Patient Position Prone Coupling Medium Ultrasound Gel Frequency Setting (mHz) 1 Mode Setting Continuous Intensity Setting (w/cm2) 1.5 Comments Disto lateral post thigh PT-OP-T Assessment and Plan Start: 12/13/17 14:24 Freq: Status: Active Protocol: Document 12/30/17 10:30 RCC (Rec: 12/30/17 10:57 RCC [email or web address]) Physical Therapy Assessment Assessment Summary Assessment Pt still with tension and tenderness along the L HS, but notes improvements with function and walking tolerance . Physical Therapy Plan Frequency and Duration Frequency of Treatment 2x/Week Duration of Treatment 8 wks Plan of Care Start Date 12/13/17 Plan of Care End Date 02/07/18 Next Visit Focus/Plan Next Note Type Treatment Note Next Visit Plan gluteal strengthening, progress HS strength as tolerated.
--- NOTE | 2018-01-11 14:13 | PT.OTN ---
Current Diagnoses Strain of muscle, fascia and tendon of the posterior muscle group at thigh level, left thigh, initial encounter (01/11/18) Physical Therapy Treatment Note PT-OP-A Visit Information Start: 12/13/17 14:24 Freq: Status: Active Protocol: Document 01/11/18 13:47 EA (Rec: 01/11/18 13:52 EA [id number]) Out-Patient Physical Therapy Visit Information Visit Information Visit Type Treatment Note Visit Start Time 13:00 Visit Stop Time 13:45 Total Visit Minutes 55 Visit Number 7 PT-OP-B Current Condition Start: 12/13/17 14:24 Freq: Status: Active Protocol: Document 12/13/17 14:25 EA (Rec: 12/13/17 14:29 EA [id number]) Current Condition History of Current Condition Onset Date 2 weeks ago History of Current Condition Present condition started two weeks ago while participating in a half marathon event in [place]. Pt reports he felt initially cramp at the left posterior thigh that made him slow down; patient denies any popping sound during the injury and did not see any bruises or hematoma. Patient applied ICE and rest after the event but pain and difficulty of getting back to usual speed of walking still persist , however is improving. Patient seen his doctor due his back pain which a chronic issue and requested to have refferral for his left thigh. Patient was then referred to PT with a diagnosis of left hamstring strain and low back pain. Patient reports he comes today for the main purpose of improving left hamsting but not the low back pain as he mentioned that he is having low back optional treatment. No MRI or other imagin for the knee/thigh performed recently . Prior Treatments and Tests 1st Low back cortizone shot Future Testing and Treatments Planned 2 cortizone shots remaining for lower back Treatment Goals Patient/Caregiver Goals Back to previous level of function, daily > 2 miles of walk Prior Functional Status Baseline Function- ADL's Independent Baseline Function- Mobility Independent Baseline Function- Recreation/Hobbies Daily long walks Current Functional Impairments (Reported) Functional Limitations- ADL's Indep Functional Limitations- Mobility/Gait Difficulty with increasing speed of walking Functional Limitations- Recreation/ Unable to participate with Hobbies marthon due to pain PT-OP-C Subjective Start: 12/13/17 14:24 Freq: Status: Active Protocol: Document 01/11/18 13:47 EA (Rec: 01/11/18 13:52 EA [id number]) OP-PT Subjective Patient Comments Patient Comments Patient reports went to [facility] and did lots walking with no increased of hamstring symptoms;states he feels that is improving which might not require next session. PT-OP-G Mobility & Gait Start: 12/13/17 14:24 Freq: Status: Active Protocol: Document 12/13/17 16:55 EA (Rec: 12/13/17 17:15 EA [id number]) OP Gait Assessment Gait Gait Assistance Required: Independent Able to Maintain Weight Bearing Status Yes During Gait Assistive Devices Assistive Device None Gait Deviations General Gait Pattern Antalgic Comments Gait Comments Increased speed altered normal gait into antalgic PT-OP-J Posture/Palpation/Skin Start: 12/13/17 14:24 Freq: Status: Active Protocol: Document 12/13/17 16:55 EA (Rec: 12/13/17 17:15 EA [id number]) Posture Evaluation Position Standing Pelvis Posture Posterior Tilted Knee Posture (L) Neutral (R) Neutral Patellar Posture (L) Neutral (R) Neutral Ankle/Foot Posture (L) Neutral (R) Neutral Palpation Assessment Location One Palpation Location Posterior left thigh Palpation Findings Soft Tissue Tightness Tenderness PT-OP-K Range of Motion Start: 12/13/17 14:24 Freq: Status: Active Protocol: Document 12/13/17 16:55 EA (Rec: 12/13/17 17:15 EA [id number]) Hip Goniometric Range of Motion Hip Measured in Degrees Left Active Hip ROM WFL Yes Knee Goniometric Range of Motion Knee Measured in Degrees Right Knee ROM WFL Yes Left Knee ROM WFL Yes PT-OP-L Special Tests Start: 12/13/17 14:24 Freq: Status: Active Protocol: Document 12/13/17 16:55 EA (Rec: 12/13/17 17:15 EA [id number]) Special Tests Hip Special Tests Straight Leg Raise Test Results negative Crystal's Test Test Results Tight RF Knee Special Tests Mansoor's Test Test Results - Other Special Tests Special Tests Positive with 90-90: hmastring tightness PT-OP-M Strength Start: 12/13/17 14:24 Freq: Status: Active Protocol: Document 12/13/17 16:55 EA (Rec: 12/13/17 17:15 EA [id number]) Hip Strength Hip Manual Muscle Testing Right Flexion (L2) 5 Normal Extension (S1) 5 Normal Abduction 5 Normal Adduction 5 Normal External Rotation 5 Normal Internal Rotation 5 Normal Left Flexion (L2) 5 Normal Extension (S1) 4 Good Abduction 5 Normal Adduction 5 Normal External Rotation 5 Normal Internal Rotation 5 Normal Knee Strength Knee Manual Muscle Testing Right Flexion (S2) 5 Normal Reason Not Measured WFL Left Flexion (S2) 4- Good- Extension (L3) 5 Normal PT-OP-Q Treatments Start: 12/13/17 14:24 Freq: Status: Active Protocol: Document 01/11/18 13:47 EA (Rec: 01/11/18 13:52 EA [id number]) Cardio Equipment Recumbent Stepper (Sci-Fit) Duration (Minutes) 5 Resistance 2 Therapeutic Exercises Supine Exercises 1 Supine Exercise Name Hams stretch Side bilateral Prone Exercises 2 Prone Exercise Name prone knee bending Side left Resistance 4.5 lbs Reps/Minutes x 15 reps x 2 1 Prone Exercise Name quads stretch Standing Exercises 2 Standing Exercise Name hip extension Side bilateral Resistance L2 band Reps/Minutes 2x10 Manual Therapy Treatment Soft Tissue Mobilization 1 Body Location left Hams Mobilization Type Myofascial Release Rolling Sustained Pressure Intensity/Depth Moderate Body Position Prone Self-Care/Home Management Treatment Education Patient Education Home Exercise Program PT-OP-R Modalities Start: 12/13/17 14:24 Freq: Status: Active Protocol: Document 01/11/18 13:47 EA (Rec: 01/11/18 13:52 EA [id number]) Electric Stimulation Electric Stimulation Interferential Current (IFC) Body Location left hamstring midpoint Duration (Minutes) 15 Intensity 21 Patient Position Sidelying Combined With Heat/Cold Hot Pack Ultrasound Therapy Treatment Left Posterior Proximal Thigh Treatment Duration (minutes) 5 Patient Position Prone Coupling Medium Ultrasound Gel Frequency Setting (mHz) 1 Mode Setting Continuous Intensity Setting (w/cm2) 1.5 Comments Disto lateral post thigh PT-OP-T Assessment and Plan Start: 12/13/17 14:24 Freq: Status: Active Protocol: Document 01/11/18 13:47 EA (Rec: 01/11/18 13:52 EA [id number]) Physical Therapy Assessment Assessment Summary Assessment Pt is progressing very well. Advance as tolerated. Physical Therapy Plan Next Visit Focus/Plan Next Visit Plan review HEP; discharge patient if no more complaint.
--- NOTE | 2018-01-13 08:55 | PT.OTN ---
Current Diagnoses Strain of muscle, fascia and tendon of the posterior muscle group at thigh level, left thigh, initial encounter (01/13/18) Physical Therapy Treatment Note PT-OP-A Visit Information Start: 12/13/17 14:24 Freq: Status: Active Protocol: Document 01/13/18 08:17 EA (Rec: 01/13/18 08:28 EA [id number]) Out-Patient Physical Therapy Visit Information Visit Information Visit Type Treatment Note Visit Start Time 07:30 Visit Stop Time 08:20 Visit Number 8 PT-OP-B Current Condition Start: 12/13/17 14:24 Freq: Status: Active Protocol: Document 12/13/17 14:25 EA (Rec: 12/13/17 14:29 EA [id number]) Current Condition History of Current Condition Onset Date 2 weeks ago History of Current Condition Present condition started two weeks ago while participating in a half marathon event in [place]. Pt reports he felt initially cramp at the left posterior thigh that made him slow down; patient denies any popping sound during the injury and did not see any bruises or hematoma. Patient applied ICE and rest after the event but pain and difficulty of getting back to usual speed of walking still persist , however is improving. Patient seen his doctor due his back pain which a chronic issue and requested to have refferral for his left thigh. Patient was then referred to PT with a diagnosis of left hamstring strain and low back pain. Patient reports he comes today for the main purpose of improving left hamsting but not the low back pain as he mentioned that he is having low back optional treatment. No MRI or other imagin for the knee/thigh performed recently . Prior Treatments and Tests 1st Low back cortizone shot Future Testing and Treatments Planned 2 cortizone shots remaining for lower back Treatment Goals Patient/Caregiver Goals Back to previous level of function, daily > 2 miles of walk Prior Functional Status Baseline Function- ADL's Independent Baseline Function- Mobility Independent Baseline Function- Recreation/Hobbies Daily long walks Current Functional Impairments (Reported) Functional Limitations- ADL's Indep Functional Limitations- Mobility/Gait Difficulty with increasing speed of walking Functional Limitations- Recreation/ Unable to participate with Hobbies marthon due to pain PT-OP-C Subjective Start: 12/13/17 14:24 Freq: Status: Active Protocol: Document 01/13/18 08:17 EA (Rec: 01/13/18 08:28 EA [id number]) OP-PT Subjective Patient Comments Patient Comments Patient reports that he is much feeling better at this time; no complaint of hamstring pain aggravation. Patient wants to know more about HEP. Patient Reported Progress Improving Patient Questionnaires Lower Extremity Functional Scale LEFS Score 19% impaired LEFS Impairment 1 to 19% Impaired (Score 63-79 ) PT-OP-G Mobility & Gait Start: 12/13/17 14:24 Freq: Status: Active Protocol: Document 12/13/17 16:55 EA (Rec: 12/13/17 17:15 EA [id number]) OP Gait Assessment Gait Gait Assistance Required: Independent Able to Maintain Weight Bearing Status Yes During Gait Assistive Devices Assistive Device None Gait Deviations General Gait Pattern Antalgic Comments Gait Comments Increased speed altered normal gait into antalgic PT-OP-J Posture/Palpation/Skin Start: 12/13/17 14:24 Freq: Status: Active Protocol: Document 12/13/17 16:55 EA (Rec: 12/13/17 17:15 EA [id number]) Posture Evaluation Position Standing Pelvis Posture Posterior Tilted Knee Posture (L) Neutral (R) Neutral Patellar Posture (L) Neutral (R) Neutral Ankle/Foot Posture (L) Neutral (R) Neutral Palpation Assessment Location One Palpation Location Posterior left thigh Palpation Findings Soft Tissue Tightness Tenderness PT-OP-K Range of Motion Start: 12/13/17 14:24 Freq: Status: Active Protocol: Document 12/13/17 16:55 EA (Rec: 12/13/17 17:15 EA [id number]) Hip Goniometric Range of Motion Hip Measured in Degrees Left Active Hip ROM WFL Yes Knee Goniometric Range of Motion Knee Measured in Degrees Right Knee ROM WFL Yes Left Knee ROM WFL Yes PT-OP-L Special Tests Start: 12/13/17 14:24 Freq: Status: Active Protocol: Document 12/13/17 16:55 EA (Rec: 12/13/17 17:15 EA [id number]) Special Tests Hip Special Tests Straight Leg Raise Test Results negative Crystal's Test Test Results Tight RF Knee Special Tests Mansoor's Test Test Results - Other Special Tests Special Tests Positive with 90-90: hmastring tightness PT-OP-M Strength Start: 12/13/17 14:24 Freq: Status: Active Protocol: Document 12/13/17 16:55 EA (Rec: 12/13/17 17:15 EA [id number]) Hip Strength Hip Manual Muscle Testing Right Flexion (L2) 5 Normal Extension (S1) 5 Normal Abduction 5 Normal Adduction 5 Normal External Rotation 5 Normal Internal Rotation 5 Normal Left Flexion (L2) 5 Normal Extension (S1) 4 Good Abduction 5 Normal Adduction 5 Normal External Rotation 5 Normal Internal Rotation 5 Normal Knee Strength Knee Manual Muscle Testing Right Flexion (S2) 5 Normal Reason Not Measured WFL Left Flexion (S2) 4- Good- Extension (L3) 5 Normal PT-OP-Q Treatments Start: 12/13/17 14:24 Freq: Status: Active Protocol: Document 01/13/18 08:17 EA (Rec: 01/13/18 08:28 EA [id number]) Cardio Equipment Recumbent Stepper (Sci-Fit) Duration (Minutes) 5 Resistance 2 Gym Equipment Cable Column (Body Solid) Leg Extension Resistance 30# Reps/Time HEP: modified with 5lbs AW Therapeutic Exercises Supine Exercises 2 Supine Exercise Name double to single bridge Reps/Minutes x 10 reps x 2 Comments HEP 1 Supine Exercise Name Hams stretch Comments HEP Prone Exercises 2 Prone Exercise Name prone knee bending Side left Resistance 4.5 lbs Reps/Minutes x 15 reps x 2 Comments HEP 1 Prone Exercise Name quads stretch Standing Exercises 4 Standing Exercise Name Bench squat: 90 deg Reps/Minutes 15 reps Comments HEP 3 Standing Exercise Name Steady lunges: HEP Side bilateral Reps/Minutes x 10 reps x 2 sets Comments Stretch prior. W hand support Manual Therapy Treatment Soft Tissue Mobilization 2 Body Location left IT band Mobilization Type Rolling Intensity/Depth Moderate Body Position Prone 1 Body Location left Hams Mobilization Type Myofascial Release Rolling Sustained Pressure Intensity/Depth Moderate Body Position Prone Self-Care/Home Management Treatment Education Patient Education Home Exercise Program PT-OP-R Modalities Start: 12/13/17 14:24 Freq: Status: Active Protocol: Document 01/13/18 08:17 EA (Rec: 01/13/18 08:28 EA [id number]) Electric Stimulation Electric Stimulation Interferential Current (IFC) Body Location left hamstring midpoint Duration (Minutes) 15 Intensity 21 Patient Position Sidelying Combined With Heat/Cold Hot Pack PT-OP-T Assessment and Plan Start: 12/13/17 14:24 Freq: Status: Active Protocol: Document 01/13/18 08:17 EA (Rec: 01/13/18 08:28 EA [id number]) Physical Therapy Assessment Assessment Summary Assessment Patient showed good HEP understanding and perform safely. Patient have no more tenderness and no noted discomfort during therex. Patient is good to discharge at this time. Physical Therapy Plan Discharge Physical Therapy Discharge Reasons Patient Request Discharge Comments Goals met, no more complaint. Discharged to HEP.
== END 2018-01-13 11:04 ==
LOC: PHYS 07:30
PROVIDERS: PCP Internal Medicine; Visit Provider Physical Medicine & Rehabilitation Pain Medicine
DX: S76.312A Strain of muscle, fascia and tendon of the posterior muscle group at thigh level, left thigh, initial encounter (principal)
CPT/HCPCS: 97014; 97032; 97035; 97110; 97140; 97161; 97535; G0283

== ENCOUNTER 2018-03-16 09:45 | Outpatient (RCR) | payer MEDICARE, OTHER, SELFPAY ==
--- NOTE | 2018-01-26 08:52 | PT.OPPOC ---
Provider Visit Care Team Role Provider Type Juliano Chaves MD Primary Care Provider Physician Specialty: Internal Medicine Address: [address] [place] [address], [id number] Email: Marco Palm MD Attending Provider Physician Specialty: Orthopedic Surgery Address: [address] [place] [address], [id number] Email: [email or web address] Plan Of Care PT-OP-T Assessment and Plan Start: 01/26/18 09:44 Freq: Status: Active Protocol: Document 01/26/18 13:24 EA (Rec: 01/26/18 13:45 EA [id number]) Physical Therapy Assessment Rehab Potential Rehabilitation Potential Fair Evaluation Complexity Number of Personal Factors/Comorbidities 3 or More Number of Body Systems Impaired 1-2 Clinical Presentation at Evaluation Stable Impairments Impairments Activity Tolerance Functional Activities Pain Posture ROM Soft Tissue Mobility Strength Goals Four Impairment Impaired posture Jail Goal (LTG) Patient will demonstrates near to functional posture LTG Duration 4 wks Three Impairment Impaired hip lumbar, thoracic, cervical muscular excursion Jail Goal (LTG) Patient will have normal flexibility to both, LD, hip, lumbar, thoracic, cervical to decrease pain to low and mib back area. LTG Duration 4 wks Two Impairment Impaired lumbar and cervical ROM Jail Goal (LTG) Patient will exhibit near to normal cervical and lumbar AP ROM to decrease muscular imbalance and improve functional posture. LTG Duration 4 wks One Impairment OSWESTRY score of 40 -60 impaired Jail Goal (LTG) Patient will have OSWETRY impairment scale of 20-40% LTG Duration 4 WKS Assessment Summary Assessment Pleasant 77 y/o M patient diagnosed with core weakness. Today patient exhibits with poor upright posture with LOM to cervical, lumbar ROM in all planes. Assessments also reveals tightness to both hamstrings, hip flexors, ITB, posterior neck muscles, and shoulder protractors. Lumbar facets reveals slight sensitive but mostly tightness to both side flexors. Neural test reveals negative. Core muscular imbalance with posterior pelvic tilt noted. In my professional opinion patient would have fair rehab potential, however, would still benefit with skilled PT to correct muscular imbalance and education to improve posture. Physical Therapy Plan Frequency and Duration Frequency of Treatment 2x/Week Duration of Treatment 8 Plan of Care Start Date 01/26/18 Plan of Care End Date 03/23/18 Therapeutic Interventions Therapeutic Interventions Home Exercise Program Joint Mobilizations Patient/Caregiver Education Self-Care/Home Management Soft Tissue Mobilization Therapeutic Activities Therapeutic Exercises Modalities Cold Pack/Ice Massage Electric Stimulation Hot Packs Ultrasound Next Visit Focus/Plan Next Note Type Treatment Note Next Visit Plan Provide HEP Plan of Care Dates Plan of Care Start Date 01/26/18 Plan of Care End Date 03/23/18 Please Sign and Return: I have reviewed this Plan of Care and certify that the skilled therapy services above are required to meet the patient?s needs. Physician Signature Date Printed Name and Credentials Clinical Instructor Signature Printed Name and Credentials
--- NOTE | 2018-01-26 08:52 | PT.OIE ---
Provider Visit Care Team Role Provider Type Juliano Chaves MD Primary Care Provider Physician Specialty: Internal Medicine Address: [address] [place] [address], [id number] Email: Marco Palm MD Attending Provider Physician Specialty: Orthopedic Surgery Address: [address] [place] [address], [id number] Email: [email or web address] Physical Therapy Initial Evaluation PT-OP-A Visit Information Start: 01/26/18 09:44 Freq: Status: Active Protocol: Document 01/26/18 13:24 EA (Rec: 01/26/18 13:45 EA [id number]) Out-Patient Physical Therapy Visit Information Visit Information Visit Type Initial Evaluation Visit Start Time 09:00 Visit Stop Time 09:45 Total Visit Minutes 35 Visit Number 1 PT-OP-B Current Condition Start: 01/26/18 09:44 Freq: Status: Active Protocol: Document 01/26/18 13:24 EA (Rec: 01/26/18 13:45 EA [id number]) Current Condition History of Current Condition Onset Date 12 years ago Current Complaints Localized Mid and low back pain History of Current Condition Pt reports present condition started 12 years ago and has been chronic; states no injury recalled and no history of back or hip surgery. Pt reports he had formal PT treatment a year ago and helps but not completely resolved. 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 Patient also reports that three back treatment injection did not help in the span of three years. Prior Treatments and Tests 3 back treatment injections Future Testing and Treatments Planned None identified. Treatment Goals Patient/Caregiver Goals Patient wants to improve his core strength and posture. Prior Functional Status Baseline Function- ADL's Independent Baseline Function- Mobility Independent Baseline Function- Recreation/Hobbies daily > 1 hour walk Current Functional Impairments (Reported) Functional Limitations- ADL's Indep with limited Functional Limitations- Recreation/ Mildly limitation with daily > Hobbies 1 hour walking due to stiffness with pain. PT-OP-C Subjective Start: 01/26/18 09:44 Freq: Status: Active Protocol: Document 01/26/18 13:24 EA (Rec: 01/26/18 13:45 EA [id number]) OP-PT Subjective Patient Comments Patient Comments Patient wants to improve his core strength and posture. Patient Reported Progress Same Patient Questionnaires Oswestry Low Back Index Oswestry Impairment 40 to 59% Impaired (Score 40- 59) OP-PT Pain Assessment Location Bilateral Lower Back Pain Location Details Paralumbars, TL fascia Intensity 3 Scale Used Numeric (1 - 10) Description Aching Tender Tightness Frequency Intermittent Pain Aggravating Factors Position Walking Pain Alleviating Factors Exercise Home Pain Medication Use Pain Medications Used No Comments Pain Comments Patient exhibit no acute distress. PT-OP-J Posture/Palpation/Skin Start: 01/26/18 09:44 Freq: Status: Active Protocol: Document 01/26/18 13:24 EA (Rec: 01/26/18 13:45 EA [id number]) Posture Evaluation Position Standing Evaluation View post/lat Head/C-Spine Posture Forward Head T-Spine Posture Increased Kyphosis L-Spine Posture Decreased Lordosis Scapula Posture (L) Protracted (R) Protracted Arm Posture (L) Internally Rotated (R) Internally Rotated Pelvis Posture Posterior Tilted Palpation Assessment Location One Palpation Location mid back, paralumabrs Palpation Findings Soft Tissue Tightness Tenderness Trigger Point PT-OP-K Range of Motion Start: 01/26/18 09:44 Freq: Status: Active Protocol: Document 01/26/18 13:24 EA (Rec: 01/26/18 13:45 EA [id number]) Lumbar Spine Range of Motion Lumbar Spine Active Percentage Testing Position standing Flexion 65 Extension 70 Rotation Left 65 Rotation Right 65 Lateral Flexion Left 60 Lateral Flexion Right 65 ROM Limitations Soft Tissue Tightness Pain Active Testing Position standing PT-OP-L Special Tests Start: 01/26/18 09:44 Freq: Status: Active Protocol: Document 01/26/18 13:24 EA (Rec: 01/26/18 13:45 EA [id number]) Special Tests Lumbar Spine Special Tests Other- 2 Test Results Foraminal compression Comments Negative Other- 1 Test Results Posterior quadrant tests Comments + facet joint Hip Special Tests Straight Leg Raise Test Results - Crystal's Test Test Results + Knee Special Tests Mansoor's Test Test Results + Neural Special Tests- Lower Body Femoral Nerve Tension Test Results - PT-OP-M Strength Start: 01/26/18 09:44 Freq: Status: Active Protocol: Document 01/26/18 14:10 EA (Rec: 01/31/18 08:28 EA [id number]) Trunk Strength Trunk Manual Muscle Testing Testing Position Supine Flexion 4- Good- Extension 4 Good Rotation Left 4- Good- Rotation Right 4- Good- Lateral Flexion Left 4- Good- Lateral Flexion Right 4- Good- Hip Strength Hip Manual Muscle Testing Right Reason Not Measured WFL Left Reason Not Measured WFL Knee Strength Knee Manual Muscle Testing Left Reason Not Measured WFL Right Reason Not Measured WFL Ankle/Foot Strength Ankle and Foot Manual Muscle Testing Right Reason Not Measured WFL Left Reason Not Measured WFL PT-OP-Q Treatments Start: 01/26/18 09:44 Freq: Status: Active Protocol: Document 01/26/18 13:24 EA (Rec: 01/26/18 13:45 EA [id number]) Self-Care/Home Management Treatment Education Patient Education Home Exercise Program Pain Management Posture PT-OP-T Assessment and Plan Start: 01/26/18 09:44 Freq: Status: Active Protocol: Document 01/26/18 13:24 EA (Rec: 01/26/18 13:45 EA [id number]) Physical Therapy Assessment Rehab Potential Rehabilitation Potential Fair Evaluation Complexity Number of Personal Factors/Comorbidities 3 or More Number of Body Systems Impaired 1-2 Clinical Presentation at Evaluation Stable Impairments Impairments Activity Tolerance Functional Activities Pain Posture ROM Soft Tissue Mobility Strength Goals Four Impairment Impaired posture Usp Goal (LTG) Patient will demonstrates near to functional posture LTG Duration 4 wks Three Impairment Impaired hip lumbar, thoracic, cervical muscular excursion Manager Financial Reporting Goal (LTG) Patient will have normal flexibility to both, LD, hip, lumbar, thoracic, cervical to decrease pain to low and mib back area. LTG Duration 4 wks Two Impairment Impaired lumbar and cervical ROM Manager Financial Reporting Goal (LTG) Patient will exhibit near to normal cervical and lumbar AP ROM to decrease muscular imbalance and improbe functional posture. LTG Duration 4 wks One Impairment OSWESTRY score of 40 -60 impaired Manager Financial Reporting Goal (LTG) Patient will have OSWETRY impairment scale of 20-40% LTG Duration 4 WKS Assessment Summary Assessment Pleasant 77 y/o M patient diagnosed with core weakness. Today patient exhibits with poor upright posture with LOM to cervical, lumbar ROM in all planes. Assessments also reveals tightness to both hamstrings, hip flexors, ITB, posterior neck muscles, and shoulder protractors. Lumbar facets reveals slight sensitive but mostly tightness to both side flexors. Neural test reveals negative. Core muscular imbalance with posterior pelvic tilt noted. In my professional opinion patient would have fair rehab potential, however, would still benefit with skilled PT to correct muscular imbalance and education to improve posture. Physical Therapy Plan Frequency and Duration Frequency of Treatment 2x/Week Duration of Treatment 8 Plan of Care Start Date 01/26/18 Plan of Care End Date 03/23/18 Therapeutic Interventions Therapeutic Interventions Home Exercise Program Joint Mobilizations Patient/Caregiver Education Self-Care/Home Management Soft Tissue Mobilization Therapeutic Activities Therapeutic Exercises Modalities Cold Pack/Ice Massage Electric Stimulation Hot Packs Ultrasound Next Visit Focus/Plan Next Note Type Treatment Note Next Visit Plan Provide HEP
--- NOTE | 2018-02-02 09:15 | PT.OTN ---
Physical Therapy Treatment Note PT-OP-A Visit Information Start: 01/26/18 09:44 Freq: Status: Active Protocol: Document 02/02/18 08:19 EA (Rec: 02/02/18 09:14 EA [id number]) Out-Patient Physical Therapy Visit Information Visit Information Visit Type Treatment Note Visit Start Time 08:15 Visit Stop Time 09:05 Total Visit Minutes 50 Visit Number 2 PT-OP-B Current Condition Start: 01/26/18 09:44 Freq: Status: Active Protocol: Document 01/26/18 13:24 EA (Rec: 01/26/18 13:45 EA [id number]) Current Condition History of Current Condition Onset Date 12 years ago Current Complaints Localized Mid and low back pain History of Current Condition Pt reports present condition started 12 years ago and has been chronic; states no injury recalled and no history of back or hip surgery. Pt reports he had formal PT treatment a year ago and helps but not completely resolved. 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 Patient also reports that three back treatment injection did not help in the span of three years. Prior Treatments and Tests 3 back treatment injections Future Testing and Treatments Planned None identified. Treatment Goals Patient/Caregiver Goals Patient wants to improve his core strength and posture. Prior Functional Status Baseline Function- ADL's Independent Baseline Function- Mobility Independent Baseline Function- Recreation/Hobbies daily > 1 hour walk Current Functional Impairments (Reported) Functional Limitations- ADL's Indep with limited Functional Limitations- Recreation/ Mildly limitation with daily > Hobbies 1 hour walking due to stiffness with pain. PT-OP-C Subjective Start: 01/26/18 09:44 Freq: Status: Active Protocol: Document 02/02/18 08:19 EA (Rec: 02/02/18 09:14 EA [id number]) OP-PT Subjective Patient Comments Patient Comments pt reports had 36 miles walk last week and he has been practicing HEP. Patient Reported Progress Improving PT-OP-J Posture/Palpation/Skin Start: 01/26/18 09:44 Freq: Status: Active Protocol: Document 01/26/18 13:24 EA (Rec: 01/26/18 13:45 EA [id number]) Posture Evaluation Position Standing Evaluation View post/lat Head/C-Spine Posture Forward Head T-Spine Posture Increased Kyphosis L-Spine Posture Decreased Lordosis Scapula Posture (L) Protracted (R) Protracted Arm Posture (L) Internally Rotated (R) Internally Rotated Pelvis Posture Posterior Tilted Palpation Assessment Location One Palpation Location mid back, paralumabrs Palpation Findings Soft Tissue Tightness Tenderness Trigger Point PT-OP-K Range of Motion Start: 01/26/18 09:44 Freq: Status: Active Protocol: Document 01/26/18 13:24 EA (Rec: 01/26/18 13:45 EA [id number]) Lumbar Spine Range of Motion Lumbar Spine Active Percentage Testing Position standing Flexion 65 Extension 70 Rotation Left 65 Rotation Right 65 Lateral Flexion Left 60 Lateral Flexion Right 65 ROM Limitations Soft Tissue Tightness Pain Active Testing Position standing PT-OP-L Special Tests Start: 01/26/18 09:44 Freq: Status: Active Protocol: Document 01/26/18 13:24 EA (Rec: 01/26/18 13:45 EA [id number]) Special Tests Lumbar Spine Special Tests Other- 2 Test Results Foraminal compression Comments Negative Other- 1 Test Results Posterior quadrant tests Comments + facet joint Hip Special Tests Straight Leg Raise Test Results - Crystal's Test Test Results + Knee Special Tests Mansoor's Test Test Results + Neural Special Tests- Lower Body Femoral Nerve Tension Test Results - PT-OP-M Strength Start: 01/26/18 09:44 Freq: Status: Active Protocol: Document 01/26/18 14:10 EA (Rec: 01/31/18 08:28 EA [id number]) Trunk Strength Trunk Manual Muscle Testing Testing Position Supine Flexion 4- Good- Extension 4 Good Rotation Left 4- Good- Rotation Right 4- Good- Lateral Flexion Left 4- Good- Lateral Flexion Right 4- Good- Hip Strength Hip Manual Muscle Testing Right Reason Not Measured WFL Left Reason Not Measured WFL Knee Strength Knee Manual Muscle Testing Left Reason Not Measured WFL Right Reason Not Measured WFL Ankle/Foot Strength Ankle and Foot Manual Muscle Testing Right Reason Not Measured WFL Left Reason Not Measured WFL PT-OP-Q Treatments Start: 01/26/18 09:44 Freq: Status: Active Protocol: Document 02/02/18 08:19 EA (Rec: 02/02/18 09:14 EA [id number]) Cardio Equipment Recumbent Stepper (Sci-Fit) Duration (Minutes) 7 Resistance 2 Seat Position 11 Gym Equipment Cable Column (Body Solid) Other- 1 Details Cable sit to stand low row Resistance 20 lbs Reps/Time x 10 repsx 2 sets Therapeutic Exercises Prone Exercises 5 Prone Exercise Name Quads stretch Side bilateral Reps/Minutes x 30SH x 2 reps 4 Prone Exercise Name Camel and Cat Side bilateral Reps/Minutes x 10 reps x 2 sets 3 Prone Exercise Name T-Ball cervical protarction- retraction Reps/Minutes x 10 reps x 2 sets 1 Prone Exercise Name T-ball shoulder horiz abduction with chin - tuck Side bilateral Reps/Minutes x 12 reps x 2 sets Standing Exercises 4 Standing Exercise Name Wall posture Side bilateral Reps/Minutes x 10 reps x 2 sets Comments focus with cervical retraction and APT 3 Standing Exercise Name Wall squat Side bilateral Reps/Minutes x 5SH x 10 reps Self-Care/Home Management Treatment Education Patient Education Home Exercise Program Posture Safety Caregiver Education Discussed posture and recommended HEP PT-OP-T Assessment and Plan Start: 01/26/18 09:44 Freq: Status: Active Protocol: Document 02/02/18 08:19 [email or web address] (Rec: 02/02/18 09:14 EA [id number]) Physical Therapy Assessment Assessment Summary Assessment Patient tolerated treatment well. VC's to cervical retraction during exercises is required. HEP was given and demonstrates understanding and safety. Physical Therapy Plan Next Visit Focus/Plan Next Note Type Treatment Note Next Visit Plan Cont. with current plan.
--- NOTE | 2018-02-08 12:13 | PT.OTN ---
Physical Therapy Treatment Note PT-OP-A Visit Information Start: 01/26/18 09:44 Freq: Status: Active Protocol: Document 02/08/18 09:46 EA (Rec: 02/08/18 10:31 EA [id number]) Out-Patient Physical Therapy Visit Information Visit Information Visit Type Treatment Note Visit Start Time 08:15 Visit Stop Time 09:05 Total Visit Minutes 38 Visit Number 3 PT-OP-B Current Condition Start: 01/26/18 09:44 Freq: Status: Active Protocol: Document 01/26/18 13:24 EA (Rec: 01/26/18 13:45 EA [id number]) Current Condition History of Current Condition Onset Date 12 years ago Current Complaints Localized Mid and low back pain History of Current Condition Pt reports present condition started 12 years ago and has been chronic; states no injury recalled and no history of back or hip surgery. Pt reports he had formal PT treatment a year ago and helps but not completely resolved. 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 Patient also reports that three back treatment injection did not help in the span of three years. Prior Treatments and Tests 3 back treatment injections Future Testing and Treatments Planned None identified. Treatment Goals Patient/Caregiver Goals Patient wants to improve his core strength and posture. Prior Functional Status Baseline Function- ADL's Independent Baseline Function- Mobility Independent Baseline Function- Recreation/Hobbies daily > 1 hour walk Current Functional Impairments (Reported) Functional Limitations- ADL's Indep with limited Functional Limitations- Recreation/ Mildly limitation with daily > Hobbies 1 hour walking due to stiffness with pain. PT-OP-C Subjective Start: 01/26/18 09:44 Freq: Status: Active Protocol: Document 02/08/18 09:46 EA (Rec: 02/08/18 10:31 EA [id number]) OP-PT Subjective Patient Comments Patient Comments Pt reports consistent with HEP ; denies low back aggravation but upper back pain only. PT-OP-J Posture/Palpation/Skin Start: 01/26/18 09:44 Freq: Status: Active Protocol: Document 01/26/18 13:24 EA (Rec: 01/26/18 13:45 EA [id number]) Posture Evaluation Position Standing Evaluation View post/lat Head/C-Spine Posture Forward Head T-Spine Posture Increased Kyphosis L-Spine Posture Decreased Lordosis Scapula Posture (L) Protracted (R) Protracted Arm Posture (L) Internally Rotated (R) Internally Rotated Pelvis Posture Posterior Tilted Palpation Assessment Location One Palpation Location mid back, paralumabrs Palpation Findings Soft Tissue Tightness Tenderness Trigger Point PT-OP-K Range of Motion Start: 01/26/18 09:44 Freq: Status: Active Protocol: Document 01/26/18 13:24 EA (Rec: 01/26/18 13:45 EA [id number]) Lumbar Spine Range of Motion Lumbar Spine Active Percentage Testing Position standing Flexion 65 Extension 70 Rotation Left 65 Rotation Right 65 Lateral Flexion Left 60 Lateral Flexion Right 65 ROM Limitations Soft Tissue Tightness Pain Active Testing Position standing PT-OP-L Special Tests Start: 01/26/18 09:44 Freq: Status: Active Protocol: Document 01/26/18 13:24 EA (Rec: 01/26/18 13:45 EA [id number]) Special Tests Lumbar Spine Special Tests Other- 2 Test Results Foraminal compression Comments Negative Other- 1 Test Results Posterior quadrant tests Comments + facet joint Hip Special Tests Straight Leg Raise Test Results - Crystal's Test Test Results + Knee Special Tests Mansoor's Test Test Results + Neural Special Tests- Lower Body Femoral Nerve Tension Test Results - PT-OP-M Strength Start: 01/26/18 09:44 Freq: Status: Active Protocol: Document 01/26/18 14:10 EA (Rec: 01/31/18 08:28 EA [id number]) Trunk Strength Trunk Manual Muscle Testing Testing Position Supine Flexion 4- Good- Extension 4 Good Rotation Left 4- Good- Rotation Right 4- Good- Lateral Flexion Left 4- Good- Lateral Flexion Right 4- Good- Hip Strength Hip Manual Muscle Testing Right Reason Not Measured WFL Left Reason Not Measured WFL Knee Strength Knee Manual Muscle Testing Left Reason Not Measured WFL Right Reason Not Measured WFL Ankle/Foot Strength Ankle and Foot Manual Muscle Testing Right Reason Not Measured WFL Left Reason Not Measured WFL PT-OP-Q Treatments Start: 01/26/18 09:44 Freq: Status: Active Protocol: Document 02/08/18 09:46 EA (Rec: 02/08/18 10:31 EA [id number]) Cardio Equipment Recumbent Stepper (Sci-Fit) Duration (Minutes) 5 Resistance 2 Seat Position 11 Gym Equipment Cable Column (Body Solid) Other- 1 Details Cable sit to stand low row Resistance 20 lbs Reps/Time x 10 repsx 2 sets Therapeutic Exercises Prone Exercises 5 Prone Exercise Name Quads stretch Side bilateral Reps/Minutes x 30SH x 2 reps 4 Prone Exercise Name Camel and Cat Side bilateral Reps/Minutes x 10 reps x 2 sets 3 Prone Exercise Name T-Ball cervical protarction- retraction Resistance 2# Reps/Minutes x 10 reps x 2 sets 2 Prone Exercise Name prone superman reach Reps/Minutes x 5SH x 5 reps each side 1 Prone Exercise Name T-ball shoulder horiz abduction with chin - tuck Side bilateral Reps/Minutes x 12 reps x 2 sets Standing Exercises 4 Standing Exercise Name Walll posture Side bilateral Reps/Minutes x 10 reps x 2 sets Comments focus with cervical retraction and APT 3 Standing Exercise Name Wall squat Side bilateral Reps/Minutes x 5SH x 10 reps Manual Therapy Treatment Soft Tissue Mobilization 2 Body Location paralumbars/thoracis Mobilization Type Myofascial Release Sustained Pressure Trigger Point Release Intensity/Depth Moderate Body Position Prone Comments pillow under stomach PT-OP-T Assessment and Plan Start: 01/26/18 09:44 Freq: Status: Active Protocol: Document 02/08/18 09:46 EA (Rec: 02/08/18 10:31 EA [id number]) Physical Therapy Assessment Assessment Summary Assessment Pt tolerated treatment well. Noted weakness with scap adduction with. Patient recommended to cont. HEP. Physical Therapy Plan Next Visit Focus/Plan Next Note Type Treatment Note Next Visit Plan Cont. with current plan.
--- NOTE | 2018-02-22 10:52 | PT.OTN ---
Current Diagnoses Strain of muscle, fascia and tendon of lower back, initial encounter (02/22/18) Physical Therapy Treatment Note PT-OP-A Visit Information Start: 01/26/18 09:44 Freq: Status: Active Protocol: Document 02/22/18 10:41 EA (Rec: 02/22/18 10:52 EA [id number]) Out-Patient Physical Therapy Visit Information Visit Information Visit Type Treatment Note Visit Start Time 09:45 Visit Stop Time 10:30 Total Visit Minutes 38 Visit Number 4 PT-OP-B Current Condition Start: 01/26/18 09:44 Freq: Status: Active Protocol: Document 01/26/18 13:24 EA (Rec: 01/26/18 13:45 EA [id number]) Current Condition History of Current Condition Onset Date 12 years ago Current Complaints Localized Mid and low back pain History of Current Condition Pt reports present condition started 12 years ago and has been chronic; states no injury recalled and no history of back or hip surgery. Pt reports he had formal PT treatment a year ago and helps but not completely resolved. 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 Patient also reports that three back treatment injection did not help in the span of three years. Prior Treatments and Tests 3 back treatment injections Future Testing and Treatments Planned None identified. Treatment Goals Patient/Caregiver Goals Patient wants to improve his core strength and posture. Prior Functional Status Baseline Function- ADL's Independent Baseline Function- Mobility Independent Baseline Function- Recreation/Hobbies daily > 1 hour walk Current Functional Impairments (Reported) Functional Limitations- ADL's Indep with limited Functional Limitations- Recreation/ Mildly limitation with daily > Hobbies 1 hour walking due to stiffness with pain. PT-OP-C Subjective Start: 01/26/18 09:44 Freq: Status: Active Protocol: Document 02/22/18 10:41 EA (Rec: 02/22/18 10:52 EA [id number]) OP-PT Subjective Patient Comments Patient Comments Pt reports out of skilled PT in the last two due to cold and feeling weak; states performed some walking but not HEP. Patient Reported Progress Same PT-OP-J Posture/Palpation/Skin Start: 01/26/18 09:44 Freq: Status: Active Protocol: Document 01/26/18 13:24 EA (Rec: 01/26/18 13:45 EA [id number]) Posture Evaluation Position Standing Evaluation View post/lat Head/C-Spine Posture Forward Head T-Spine Posture Increased Kyphosis L-Spine Posture Decreased Lordosis Scapula Posture (L) Protracted (R) Protracted Arm Posture (L) Internally Rotated (R) Internally Rotated Pelvis Posture Posterior Tilted Palpation Assessment Location One Palpation Location mid back, paralumabrs Palpation Findings Soft Tissue Tightness Tenderness Trigger Point PT-OP-K Range of Motion Start: 01/26/18 09:44 Freq: Status: Active Protocol: Document 01/26/18 13:24 EA (Rec: 01/26/18 13:45 EA [id number]) Lumbar Spine Range of Motion Lumbar Spine Active Percentage Testing Position standing Flexion 65 Extension 70 Rotation Left 65 Rotation Right 65 Lateral Flexion Left 60 Lateral Flexion Right 65 ROM Limitations Soft Tissue Tightness Pain Active Testing Position standing PT-OP-L Special Tests Start: 01/26/18 09:44 Freq: Status: Active Protocol: Document 01/26/18 13:24 EA (Rec: 01/26/18 13:45 EA [id number]) Special Tests Lumbar Spine Special Tests Other- 2 Test Results Foraminal compression Comments Negative Other- 1 Test Results Posterior quadrant tests Comments + facet joint Hip Special Tests Straight Leg Raise Test Results - Crystal's Test Test Results + Knee Special Tests Mansoor's Test Test Results + Neural Special Tests- Lower Body Femoral Nerve Tension Test Results - PT-OP-M Strength Start: 01/26/18 09:44 Freq: Status: Active Protocol: Document 01/26/18 14:10 EA (Rec: 01/31/18 08:28 EA [id number]) Trunk Strength Trunk Manual Muscle Testing Testing Position Supine Flexion 4- Good- Extension 4 Good Rotation Left 4- Good- Rotation Right 4- Good- Lateral Flexion Left 4- Good- Lateral Flexion Right 4- Good- Hip Strength Hip Manual Muscle Testing Right Reason Not Measured WFL Left Reason Not Measured WFL Knee Strength Knee Manual Muscle Testing Left Reason Not Measured WFL Right Reason Not Measured WFL Ankle/Foot Strength Ankle and Foot Manual Muscle Testing Right Reason Not Measured WFL Left Reason Not Measured WFL PT-OP-Q Treatments Start: 01/26/18 09:44 Freq: Status: Active Protocol: Document 02/22/18 10:41 EA (Rec: 02/22/18 10:52 EA [id number]) Cardio Equipment Recumbent Stepper (Sci-Fit) Duration (Minutes) 5 Resistance 2 Seat Position 11 Therapeutic Exercises Prone Exercises 5 Prone Exercise Name Quads stretch Side bilateral Reps/Minutes x 30SH x 2 reps Comments To begin with Child pose stretch x 1 min stretch x 3 4 Prone Exercise Name Camel and Cat Side bilateral Reps/Minutes x 10 reps x 2 sets 3 Prone Exercise Name T-Ball cervical protarction- retraction Resistance 2# Reps/Minutes x 10 reps x 2 sets 2 Prone Exercise Name prone/quadroped superman reach Reps/Minutes x 5SH x 5 reps each side Comments Prone not tolerated d/t left shoulder pain 1 Prone Exercise Name T-ball shoulder horiz abduction with chin - tuck Side bilateral Reps/Minutes x 12 reps x 2 sets Comments T-Y pattern with neck capital extension Sidelying Exercises 1 Sidelying Exercise Name ITB stretch Reps/Minutes x 30 secs x 5 reps Comments add: foal roller to left ITB Standing Exercises 4 Standing Exercise Name Wall posture Side bilateral Reps/Minutes x 10 reps x 2 sets Comments focus with cervical retraction and APT 3 Standing Exercise Name Wall squat Side bilateral Reps/Minutes x 5SH x 10 reps 2 Standing Exercise Name Small range corrected squat: focus with APT and scap retract/chin tuck Reps/Minutes x 10 reps Comments partial range irritated Left ITB PT-OP-T Assessment and Plan Start: 01/26/18 09:44 Freq: Status: Active Protocol: Document 02/22/18 10:41 NIKKIE (Rec: 02/22/18 10:52 EA [id number]) Physical Therapy Assessment Assessment Summary Assessment Noted Tight ITB to left and discomfort with partial squatting; recommends to use foam roller to ITB. Physical Therapy Plan Next Visit Focus/Plan Next Visit Plan Prone progressive shoulder and back exercises- to progress with core control in standing
--- NOTE | 2018-02-24 12:12 | PT.OTN ---
Current Diagnoses Strain of muscle, fascia and tendon of lower back, initial encounter (02/24/18) Physical Therapy Treatment Note PT-OP-A Visit Information Start: 01/26/18 09:44 Freq: Status: Active Protocol: Document 02/24/18 10:27 EA (Rec: 02/24/18 10:32 EA [id number]) Out-Patient Physical Therapy Visit Information Visit Information Visit Type Treatment Note Visit Start Time 09:45 Visit Stop Time 10:30 Total Visit Minutes 40 Visit Number 5 PT-OP-B Current Condition Start: 01/26/18 09:44 Freq: Status: Active Protocol: Document 01/26/18 13:24 EA (Rec: 01/26/18 13:45 EA [id number]) Current Condition History of Current Condition Onset Date 12 years ago Current Complaints Localized Mid and low back pain History of Current Condition Pt reports present condition started 12 years ago and has been chronic; states no injury recalled and no history of back or hip surgery. Pt reports he had formal PT treatment a year ago and helps but not completely resolved. 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 Patient also reports that three back treatment injection did not help in the span of three years. Prior Treatments and Tests 3 back treatment injections Future Testing and Treatments Planned None identified. Treatment Goals Patient/Caregiver Goals Patient wants to improve his core strength and posture. Prior Functional Status Baseline Function- ADL's Independent Baseline Function- Mobility Independent Baseline Function- Recreation/Hobbies daily > 1 hour walk Current Functional Impairments (Reported) Functional Limitations- ADL's Indep with limited Functional Limitations- Recreation/ Mildly limitation with daily > Hobbies 1 hour walking due to stiffness with pain. PT-OP-C Subjective Start: 01/26/18 09:44 Freq: Status: Active Protocol: Document 02/24/18 10:27 EA (Rec: 02/24/18 10:32 EA [id number]) OP-PT Subjective Patient Comments Patient Comments Pt reports left shoulder is quite sore after last session but is now much better; states very compliant with HEP; states napping in the p.m improves neck posture as he is mow using one pillow. PT-OP-J Posture/Palpation/Skin Start: 01/26/18 09:44 Freq: Status: Active Protocol: Document 01/26/18 13:24 EA (Rec: 01/26/18 13:45 EA [id number]) Posture Evaluation Position Standing Evaluation View post/lat Head/C-Spine Posture Forward Head T-Spine Posture Increased Kyphosis L-Spine Posture Decreased Lordosis Scapula Posture (L) Protracted (R) Protracted Arm Posture (L) Internally Rotated (R) Internally Rotated Pelvis Posture Posterior Tilted Palpation Assessment Location One Palpation Location mid back, paralumabrs Palpation Findings Soft Tissue Tightness Tenderness Trigger Point PT-OP-K Range of Motion Start: 01/26/18 09:44 Freq: Status: Active Protocol: Document 01/26/18 13:24 EA (Rec: 01/26/18 13:45 EA [id number]) Lumbar Spine Range of Motion Lumbar Spine Active Percentage Testing Position standing Flexion 65 Extension 70 Rotation Left 65 Rotation Right 65 Lateral Flexion Left 60 Lateral Flexion Right 65 ROM Limitations Soft Tissue Tightness Pain Active Testing Position standing PT-OP-L Special Tests Start: 01/26/18 09:44 Freq: Status: Active Protocol: Document 01/26/18 13:24 EA (Rec: 01/26/18 13:45 EA [id number]) Special Tests Lumbar Spine Special Tests Other- 2 Test Results Foraminal compression Comments Negative Other- 1 Test Results Posterior quadrant tests Comments + facet joint Hip Special Tests Straight Leg Raise Test Results - Crystal's Test Test Results + Knee Special Tests Mansoor's Test Test Results + Neural Special Tests- Lower Body Femoral Nerve Tension Test Results - PT-OP-M Strength Start: 01/26/18 09:44 Freq: Status: Active Protocol: Document 01/26/18 14:10 EA (Rec: 01/31/18 08:28 EA [id number]) Trunk Strength Trunk Manual Muscle Testing Testing Position Supine Flexion 4- Good- Extension 4 Good Rotation Left 4- Good- Rotation Right 4- Good- Lateral Flexion Left 4- Good- Lateral Flexion Right 4- Good- Hip Strength Hip Manual Muscle Testing Right Reason Not Measured WFL Left Reason Not Measured WFL Knee Strength Knee Manual Muscle Testing Left Reason Not Measured WFL Right Reason Not Measured WFL Ankle/Foot Strength Ankle and Foot Manual Muscle Testing Right Reason Not Measured WFL Left Reason Not Measured WFL PT-OP-Q Treatments Start: 01/26/18 09:44 Freq: Status: Active Protocol: Document 02/24/18 10:27 EA (Rec: 02/24/18 10:32 EA [id number]) Cardio Equipment Recumbent Stepper (Sci-Fit) Duration (Minutes) 5 Resistance 2 Seat Position 11 Therapeutic Exercises Supine Exercises 2 Supine Exercise Name Neck flexors stretch Reps/Minutes passive 1 Supine Exercise Name chin tuck with towel behind neck for resistance Reps/Minutes x 5SH x 10 reps Prone Exercises 5 Prone Exercise Name Quads stretch Side bilateral Reps/Minutes x 30SH x 2 reps Comments To begin with Child pose stretch x 1 min stretch x 3 4 Prone Exercise Name Camel and Cat Side bilateral Reps/Minutes x 10 reps x 2 sets 3 Prone Exercise Name T-Ball cervical protarction- retraction Resistance 2# Reps/Minutes x 10 reps x 2 sets 2 Prone Exercise Name prone/quadroped superman reach Reps/Minutes x 5SH x 5 reps each side Comments Prone not tolerated d/t left shoulder pain 1 Prone Exercise Name T-ball shoulder horiz abduction with chin - tuck Side bilateral Reps/Minutes x 12 reps x 2 sets Comments T-Y pattern with neck capital extension Standing Exercises 4 Standing Exercise Name Walll posture Side bilateral Reps/Minutes x 10 reps x 2 sets Comments focus with cervical retraction and APT 2 Standing Exercise Name Small range corrected squat: focus with APT and scap retract/chin tuck Reps/Minutes x 10 reps Comments partial range irritated Left ITB 1 Standing Exercise Name lunge hip flexors stretch Reps/Minutes x 30 sec x 3 reps each side Manual Therapy Treatment Soft Tissue Mobilization 2 Body Location paralumbars/thoracis Mobilization Type Myofascial Release Sustained Pressure Trigger Point Release Intensity/Depth Moderate Body Position Prone Comments pillow under stomach 1 Body Location tight neck mucles PT-OP-T Assessment and Plan Start: 01/26/18 09:44 Freq: Status: Active Protocol: Document 02/24/18 10:27 NIKKIE (Rec: 02/24/18 10:32 EA [id number]) Physical Therapy Assessment Assessment Summary Assessment Pt reached functional neck normal posture and improved APT. Patient is progressing well. Physical Therapy Plan Next Visit Focus/Plan Next Note Type Treatment Note Next Visit Plan Prone progressive shoulder and back exercises- to progress with core control in standing
--- NOTE | 2018-03-03 16:44 | PT.OTN ---
Current Diagnoses Strain of muscle, fascia and tendon of lower back, initial encounter (03/03/18) Physical Therapy Treatment Note PT-OP-A Visit Information Start: 01/26/18 09:44 Freq: Status: Active Protocol: Document 03/03/18 16:38 EA (Rec: 03/03/18 16:44 EA [id number]) Out-Patient Physical Therapy Visit Information Visit Information Visit Type Treatment Note Visit Start Time 16:00 Visit Stop Time 16:40 Visit Number 6 PT-OP-B Current Condition Start: 01/26/18 09:44 Freq: Status: Active Protocol: Document 01/26/18 13:24 EA (Rec: 01/26/18 13:45 EA [id number]) Current Condition History of Current Condition Onset Date 12 years ago Current Complaints Localized Mid and low back pain History of Current Condition Pt reports present condition started 12 years ago and has been chronic; states no injury recalled and no history of back or hip surgery. Pt reports he had formal PT treatment a year ago and helps but not completely resolved. 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 Patient also reports that three back treatment injection did not help in the span of three years. Prior Treatments and Tests 3 back treatment injections Future Testing and Treatments Planned None identified. Treatment Goals Patient/Caregiver Goals Patient wants to improve his core strength and posture. Prior Functional Status Baseline Function- ADL's Independent Baseline Function- Mobility Independent Baseline Function- Recreation/Hobbies daily > 1 hour walk Current Functional Impairments (Reported) Functional Limitations- ADL's Indep with limited Functional Limitations- Recreation/ Mildly limitation with daily > Hobbies 1 hour walking due to stiffness with pain. PT-OP-C Subjective Start: 01/26/18 09:44 Freq: Status: Active Protocol: Document 03/03/18 16:38 EA (Rec: 03/03/18 16:44 EA [id number]) OP-PT Subjective Patient Comments Patient Comments Pt reports he has been complaint with HEP and increase in upright posture awareness. PT-OP-J Posture/Palpation/Skin Start: 01/26/18 09:44 Freq: Status: Active Protocol: Document 01/26/18 13:24 EA (Rec: 01/26/18 13:45 EA [id number]) Posture Evaluation Position Standing Evaluation View post/lat Head/C-Spine Posture Forward Head T-Spine Posture Increased Kyphosis L-Spine Posture Decreased Lordosis Scapula Posture (L) Protracted (R) Protracted Arm Posture (L) Internally Rotated (R) Internally Rotated Pelvis Posture Posterior Tilted Palpation Assessment Location One Palpation Location mid back, paralumabrs Palpation Findings Soft Tissue Tightness Tenderness Trigger Point PT-OP-K Range of Motion Start: 01/26/18 09:44 Freq: Status: Active Protocol: Document 01/26/18 13:24 EA (Rec: 01/26/18 13:45 EA [id number]) Lumbar Spine Range of Motion Lumbar Spine Active Percentage Testing Position standing Flexion 65 Extension 70 Rotation Left 65 Rotation Right 65 Lateral Flexion Left 60 Lateral Flexion Right 65 ROM Limitations Soft Tissue Tightness Pain Active Testing Position standing PT-OP-L Special Tests Start: 01/26/18 09:44 Freq: Status: Active Protocol: Document 01/26/18 13:24 EA (Rec: 01/26/18 13:45 EA [id number]) Special Tests Lumbar Spine Special Tests Other- 2 Test Results Foraminal compression Comments Negative Other- 1 Test Results Posterior quadrant tests Comments + facet joint Hip Special Tests Straight Leg Raise Test Results - Crystal's Test Test Results + Knee Special Tests Mansoor's Test Test Results + Neural Special Tests- Lower Body Femoral Nerve Tension Test Results - PT-OP-M Strength Start: 01/26/18 09:44 Freq: Status: Active Protocol: Document 01/26/18 14:10 EA (Rec: 01/31/18 08:28 EA [id number]) Trunk Strength Trunk Manual Muscle Testing Testing Position Supine Flexion 4- Good- Extension 4 Good Rotation Left 4- Good- Rotation Right 4- Good- Lateral Flexion Left 4- Good- Lateral Flexion Right 4- Good- Hip Strength Hip Manual Muscle Testing Right Reason Not Measured WFL Left Reason Not Measured WFL Knee Strength Knee Manual Muscle Testing Left Reason Not Measured WFL Right Reason Not Measured WFL Ankle/Foot Strength Ankle and Foot Manual Muscle Testing Right Reason Not Measured WFL Left Reason Not Measured WFL PT-OP-Q Treatments Start: 01/26/18 09:44 Freq: Status: Active Protocol: Document 03/03/18 16:38 EA (Rec: 03/03/18 16:44 EA [id number]) Therapeutic Exercises Supine Exercises 2 Supine Exercise Name Neck flexors stretch Reps/Minutes passive 1 Supine Exercise Name chin tuck with towel behind neck for resistance Reps/Minutes x 5SH x 10 reps Prone Exercises 5 Prone Exercise Name Quads stretch Side bilateral Reps/Minutes x 30SH x 2 reps Comments To begin with Child pose stretch x 1 min stretch x 3 4 Prone Exercise Name Camel and Cat Side bilateral Reps/Minutes x 10 reps x 2 sets 3 Prone Exercise Name T-Ball cervical protarction- retraction Resistance 2# Reps/Minutes x 10 reps x 2 sets 2 Prone Exercise Name prone/quadroped superman reach Reps/Minutes x 5SH x 5 reps each side Comments Prone not tolerated d/t left shoulder pain 1 Prone Exercise Name T-ball shoulder horiz abduction with chin - tuck Side bilateral Resistance 2-3 lbs Reps/Minutes x 12 reps x 2 sets Comments T-Y pattern with neck capital extension Sidelying Exercises 1 Sidelying Exercise Name ITB stretch Reps/Minutes x 30 secs x 5 reps Comments add: foal roller to left ITB Standing Exercises 5 Standing Exercise Name T-bar shoulder ext Side bilateral Resistance 4-8lbs Reps/Minutes x12 reps x 2 4 Standing Exercise Name Wall posture Side bilateral Reps/Minutes x 10 reps x 2 sets Comments focus with cervical retraction and APT 1 Standing Exercise Name lunge hip flexors stretch Reps/Minutes x 30 sec x 3 reps each side Manual Therapy Treatment Soft Tissue Mobilization 1 Body Location tight neck mucles PT-OP-T Assessment and Plan Start: 01/26/18 09:44 Freq: Status: Active Protocol: Document 03/03/18 16:38 EA (Rec: 03/03/18 16:44 EA [id number]) Physical Therapy Assessment Assessment Summary Assessment Tolerated treatment well with much improved posture. Physical Therapy Plan Next Visit Focus/Plan Next Note Type Treatment Note Next Visit Plan Provide HEP with pictures which can be taken from his phone.
--- NOTE | 2018-03-08 12:21 | PT.OTN ---
Current Diagnoses Strain of muscle, fascia and tendon of lower back, initial encounter (03/08/18) Physical Therapy Treatment Note PT-OP-A Visit Information Start: 01/26/18 09:44 Freq: Status: Active Protocol: Document 03/08/18 09:53 EA (Rec: 03/08/18 10:36 EA [id number]) Out-Patient Physical Therapy Visit Information Visit Information Visit Start Time 09:45 Visit Stop Time 10:30 Visit Number 7 PT-OP-B Current Condition Start: 01/26/18 09:44 Freq: Status: Active Protocol: Document 01/26/18 13:24 EA (Rec: 01/26/18 13:45 EA [id number]) Current Condition History of Current Condition Onset Date 12 years ago Current Complaints Localized Mid and low back pain History of Current Condition Pt reports present condition started 12 years ago and has been chronic; states no injury recalled and no history of back or hip surgery. Pt reports he had formal PT treatment a year ago and helps but not completely resolved. 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 Patient also reports that three back treatment injection did not help in the span of three years. Prior Treatments and Tests 3 back treatment injections Future Testing and Treatments Planned None identified. Treatment Goals Patient/Caregiver Goals Patient wants to improve his core strength and posture. Prior Functional Status Baseline Function- ADL's Independent Baseline Function- Mobility Independent Baseline Function- Recreation/Hobbies daily > 1 hour walk Current Functional Impairments (Reported) Functional Limitations- ADL's Indep with limited Functional Limitations- Recreation/ Mildly limitation with daily > Hobbies 1 hour walking due to stiffness with pain. PT-OP-C Subjective Start: 01/26/18 09:44 Freq: Status: Active Protocol: Document 03/08/18 09:53 EA (Rec: 03/08/18 10:36 EA [id number]) OP-PT Subjective Patient Comments Patient Comments Pt reports brought the camera to take pictures for HEP; states he will be out of states after a week from today and possible d/c. PT-OP-J Posture/Palpation/Skin Start: 01/26/18 09:44 Freq: Status: Active Protocol: Document 01/26/18 13:24 EA (Rec: 01/26/18 13:45 EA [id number]) Posture Evaluation Position Standing Evaluation View post/lat Head/C-Spine Posture Forward Head T-Spine Posture Increased Kyphosis L-Spine Posture Decreased Lordosis Scapula Posture (L) Protracted (R) Protracted Arm Posture (L) Internally Rotated (R) Internally Rotated Pelvis Posture Posterior Tilted Palpation Assessment Location One Palpation Location mid back, paralumabrs Palpation Findings Soft Tissue Tightness Tenderness Trigger Point PT-OP-K Range of Motion Start: 01/26/18 09:44 Freq: Status: Active Protocol: Document 01/26/18 13:24 EA (Rec: 01/26/18 13:45 EA [id number]) Lumbar Spine Range of Motion Lumbar Spine Active Percentage Testing Position standing Flexion 65 Extension 70 Rotation Left 65 Rotation Right 65 Lateral Flexion Left 60 Lateral Flexion Right 65 ROM Limitations Soft Tissue Tightness Pain Active Testing Position standing PT-OP-L Special Tests Start: 01/26/18 09:44 Freq: Status: Active Protocol: Document 01/26/18 13:24 EA (Rec: 01/26/18 13:45 EA [id number]) Special Tests Lumbar Spine Special Tests Other- 2 Test Results Foraminal compression Comments Negative Other- 1 Test Results Posterior quadrant tests Comments + facet joint Hip Special Tests Straight Leg Raise Test Results - Crystal's Test Test Results + Knee Special Tests Mansoor's Test Test Results + Neural Special Tests- Lower Body Femoral Nerve Tension Test Results - PT-OP-M Strength Start: 01/26/18 09:44 Freq: Status: Active Protocol: Document 01/26/18 14:10 EA (Rec: 01/31/18 08:28 EA [id number]) Trunk Strength Trunk Manual Muscle Testing Testing Position Supine Flexion 4- Good- Extension 4 Good Rotation Left 4- Good- Rotation Right 4- Good- Lateral Flexion Left 4- Good- Lateral Flexion Right 4- Good- Hip Strength Hip Manual Muscle Testing Right Reason Not Measured WFL Left Reason Not Measured WFL Knee Strength Knee Manual Muscle Testing Left Reason Not Measured WFL Right Reason Not Measured WFL Ankle/Foot Strength Ankle and Foot Manual Muscle Testing Right Reason Not Measured WFL Left Reason Not Measured WFL PT-OP-Q Treatments Start: 01/26/18 09:44 Freq: Status: Active Protocol: Document 03/08/18 09:53 EA (Rec: 03/08/18 10:36 EA [id number]) Gym Equipment Shuttle Balance 1 Details red clips: small range squat Reps/Duration WBOS Comments Coorected form Therapeutic Exercises Supine Exercises 2 Supine Exercise Name Neck flexors stretch Reps/Minutes passive 1 Supine Exercise Name chin tuck with towel behind neck for resistance Reps/Minutes x 5SH x 10 reps Prone Exercises 5 Prone Exercise Name Quads stretch Side bilateral Reps/Minutes x 30SH x 2 reps Comments HEP comp 4 Prone Exercise Name Camel and Cat Side bilateral Reps/Minutes x 10 reps x 2 sets 3 Prone Exercise Name T-Ball cervical protarction- retraction Resistance 2# Reps/Minutes x 10 reps x 2 sets Comments HEP comp 2 Prone Exercise Name prone/quadroped superman reach Reps/Minutes x 5SH x 5 reps each side Comments ok sign thumb 1 Prone Exercise Name T-ball shoulder horiz abduction with chin - tuck Side bilateral Resistance 2-3 lbs Reps/Minutes x 12 reps x 2 sets Comments T-Y pattern with neck capital extension Sidelying Exercises 1 Sidelying Exercise Name ITB stretch Reps/Minutes x 30 secs x 5 reps Comments add: foal roller to left ITB Standing Exercises 5 Standing Exercise Name T-bar shoulder ext Side bilateral Resistance 4-8lbs Reps/Minutes x12 reps x 2 Comments HEP comp 4 Standing Exercise Name Walll posture: HEP comp Side bilateral Reps/Minutes x 10 reps x 2 sets Comments focus with cervical retraction and APT 1 Standing Exercise Name lunge hip flexors stretch Reps/Minutes x 30 sec x 3 reps each side Comments HEP comp PT-OP-T Assessment and Plan Start: 01/26/18 09:44 Freq: Status: Active Protocol: Document 03/08/18 09:53 EA (Rec: 03/08/18 10:36 EA [id number]) Physical Therapy Assessment Assessment Summary Assessment Tolerated treatment well. Understand all form and execution of HEP and safety. Physical Therapy Plan Next Visit Focus/Plan Next Note Type Treatment Note Next Visit Plan neck exercises
--- NOTE | 2018-03-10 11:14 | PT.OTN ---
Current Diagnoses Strain of muscle, fascia and tendon of lower back, initial encounter (03/10/18) Physical Therapy Treatment Note PT-OP-A Visit Information Start: 01/26/18 09:44 Freq: Status: Active Protocol: Document 03/10/18 10:27 EA (Rec: 03/10/18 10:32 EA [id number]) Out-Patient Physical Therapy Visit Information Visit Information Visit Type Treatment Note Visit Start Time 09:45 Visit Stop Time 10:30 Total Visit Minutes 40 Visit Number 8 PT-OP-B Current Condition Start: 01/26/18 09:44 Freq: Status: Active Protocol: Document 01/26/18 13:24 EA (Rec: 01/26/18 13:45 EA [id number]) Current Condition History of Current Condition Onset Date 12 years ago Current Complaints Localized Mid and low back pain History of Current Condition Pt reports present condition started 12 years ago and has been chronic; states no injury recalled and no history of back or hip surgery. Pt reports he had formal PT treatment a year ago and helps but not completely resolved. 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 Patient also reports that three back treatment injection did not help in the span of three years. Prior Treatments and Tests 3 back treatment injections Future Testing and Treatments Planned None identified. Treatment Goals Patient/Caregiver Goals Patient wants to improve his core strength and posture. Prior Functional Status Baseline Function- ADL's Independent Baseline Function- Mobility Independent Baseline Function- Recreation/Hobbies daily > 1 hour walk Current Functional Impairments (Reported) Functional Limitations- ADL's Indep with limited Functional Limitations- Recreation/ Mildly limitation with daily > Hobbies 1 hour walking due to stiffness with pain. PT-OP-C Subjective Start: 01/26/18 09:44 Freq: Status: Active Protocol: Document 03/10/18 10:27 EA (Rec: 03/10/18 10:32 EA [id number]) OP-PT Subjective Patient Comments Patient Comments Pt reports complaint with HEP. PT-OP-J Posture/Palpation/Skin Start: 01/26/18 09:44 Freq: Status: Active Protocol: Document 01/26/18 13:24 EA (Rec: 01/26/18 13:45 EA [id number]) Posture Evaluation Position Standing Evaluation View post/lat Head/C-Spine Posture Forward Head T-Spine Posture Increased Kyphosis L-Spine Posture Decreased Lordosis Scapula Posture (L) Protracted (R) Protracted Arm Posture (L) Internally Rotated (R) Internally Rotated Pelvis Posture Posterior Tilted Palpation Assessment Location One Palpation Location mid back, paralumabrs Palpation Findings Soft Tissue Tightness Tenderness Trigger Point PT-OP-K Range of Motion Start: 01/26/18 09:44 Freq: Status: Active Protocol: Document 01/26/18 13:24 EA (Rec: 01/26/18 13:45 EA [id number]) Lumbar Spine Range of Motion Lumbar Spine Active Percentage Testing Position standing Flexion 65 Extension 70 Rotation Left 65 Rotation Right 65 Lateral Flexion Left 60 Lateral Flexion Right 65 ROM Limitations Soft Tissue Tightness Pain Active Testing Position standing PT-OP-L Special Tests Start: 01/26/18 09:44 Freq: Status: Active Protocol: Document 01/26/18 13:24 EA (Rec: 01/26/18 13:45 EA [id number]) Special Tests Lumbar Spine Special Tests Other- 2 Test Results Foraminal compression Comments Negative Other- 1 Test Results Posterior quadrant tests Comments + facet joint Hip Special Tests Straight Leg Raise Test Results - Crystal's Test Test Results + Knee Special Tests Mansoor's Test Test Results + Neural Special Tests- Lower Body Femoral Nerve Tension Test Results - PT-OP-M Strength Start: 01/26/18 09:44 Freq: Status: Active Protocol: Document 01/26/18 14:10 EA (Rec: 01/31/18 08:28 EA [id number]) Trunk Strength Trunk Manual Muscle Testing Testing Position Supine Flexion 4- Good- Extension 4 Good Rotation Left 4- Good- Rotation Right 4- Good- Lateral Flexion Left 4- Good- Lateral Flexion Right 4- Good- Hip Strength Hip Manual Muscle Testing Right Reason Not Measured WFL Left Reason Not Measured WFL Knee Strength Knee Manual Muscle Testing Left Reason Not Measured WFL Right Reason Not Measured WFL Ankle/Foot Strength Ankle and Foot Manual Muscle Testing Right Reason Not Measured WFL Left Reason Not Measured WFL PT-OP-Q Treatments Start: 01/26/18 09:44 Freq: Status: Active Protocol: Document 03/10/18 10:27 EA (Rec: 03/10/18 10:32 EA [id number]) Cardio Equipment Recumbent Stepper (Sci-Fit) Duration (Minutes) 5 Resistance 2 Seat Position 11 Gym Equipment Shuttle Balance 1 Details red clips: small range squat Reps/Duration WBOS Comments Coorected form Therapeutic Exercises Supine Exercises 2 Supine Exercise Name Neck flexors stretch Reps/Minutes passive Prone Exercises 5 Prone Exercise Name Quads stretch Side bilateral Reps/Minutes x 30SH x 2 reps Comments HEP comp 4 Prone Exercise Name Camel and Cat Side bilateral Reps/Minutes x 10 reps x 2 sets 3 Prone Exercise Name T-Ball cervical protarction- retraction Resistance 2# Reps/Minutes x 10 reps x 2 sets Comments HEP comp 2 Prone Exercise Name prone/quadroped superman reach Reps/Minutes x 5SH x 5 reps each side Comments ok sign thumb 1 Prone Exercise Name T-ball shoulder horiz abduction with chin - tuck Side bilateral Resistance 2-3 lbs Reps/Minutes x 12 reps x 2 sets Comments T-Y pattern with neck capital extension Sidelying Exercises 1 Sidelying Exercise Name ITB stretch Reps/Minutes x 30 secs x 5 reps Comments add: foal roller to left ITB Standing Exercises 5 Standing Exercise Name T-bar shoulder ext Side bilateral Resistance 4-8lbs Reps/Minutes x12 reps x 2 Comments HEP comp 4 Standing Exercise Name Walll posture: HEP comp Side bilateral Reps/Minutes x 10 reps x 2 sets Comments focus with cervical retraction and APT 3 Standing Exercise Name Wall squat Side bilateral Reps/Minutes x 5SH x 10 reps 1 Standing Exercise Name lunge hip flexors stretch Reps/Minutes x 30 sec x 3 reps each side Comments HEP comp PT-OP-T Assessment and Plan Start: 01/26/18 09:44 Freq: Status: Active Protocol: Document 03/10/18 10:27 EA (Rec: 03/10/18 10:32 EA [id number]) Physical Therapy Assessment Assessment Summary Assessment Improved strength and posture noted at this time. Patient is progressing well. Physical Therapy Plan Next Visit Focus/Plan Next Note Type Treatment Note
--- NOTE | 2018-03-16 16:41 | PT.OTN ---
Current Diagnoses Strain of muscle, fascia and tendon of lower back, initial encounter (03/16/18) Physical Therapy Treatment Note PT-OP-A Visit Information Start: 01/26/18 09:44 Freq: Status: Active Protocol: Document 03/16/18 11:08 EA (Rec: 03/16/18 11:16 EA [id number]) Out-Patient Physical Therapy Visit Information Visit Information Visit Type Treatment Note Visit Start Time 09:45 Visit Stop Time 10:30 Total Visit Minutes 40 Visit Number 9 PT-OP-B Current Condition Start: 01/26/18 09:44 Freq: Status: Active Protocol: Document 01/26/18 13:24 EA (Rec: 01/26/18 13:45 EA [id number]) Current Condition History of Current Condition Onset Date 12 years ago Current Complaints Localized Mid and low back pain History of Current Condition Pt reports present condition started 12 years ago and has been chronic; states no injury recalled and no history of back or hip surgery. Pt reports he had formal PT treatment a year ago and helps but not completely resolved. 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 Patient also reports that three back treatment injection did not help in the span of three years. Prior Treatments and Tests 3 back treatment injections Future Testing and Treatments Planned None identified. Treatment Goals Patient/Caregiver Goals Patient wants to improve his core strength and posture. Prior Functional Status Baseline Function- ADL's Independent Baseline Function- Mobility Independent Baseline Function- Recreation/Hobbies daily > 1 hour walk Current Functional Impairments (Reported) Functional Limitations- ADL's Indep with limited Functional Limitations- Recreation/ Mildly limitation with daily > Hobbies 1 hour walking due to stiffness with pain. PT-OP-C Subjective Start: 01/26/18 09:44 Freq: Status: Active Protocol: Document 03/16/18 11:08 EA (Rec: 03/16/18 11:16 EA [id number]) OP-PT Subjective Patient Comments Patient Comments Pt reports upper back pain is more than lower back pain mostly washing dishes; overall he fels that his posture is improve and is complaint with HEP. Patient would like to discharge at this time as he planned to be out of states and wants to focus on his HEP. Patient denies pain aggravation. PT-OP-J Posture/Palpation/Skin Start: 01/26/18 09:44 Freq: Status: Active Protocol: Document 01/26/18 13:24 EA (Rec: 01/26/18 13:45 EA [id number]) Posture Evaluation Position Standing Evaluation View post/lat Head/C-Spine Posture Forward Head T-Spine Posture Increased Kyphosis L-Spine Posture Decreased Lordosis Scapula Posture (L) Protracted (R) Protracted Arm Posture (L) Internally Rotated (R) Internally Rotated Pelvis Posture Posterior Tilted Palpation Assessment Location One Palpation Location mid back, paralumabrs Palpation Findings Soft Tissue Tightness Tenderness Trigger Point PT-OP-K Range of Motion Start: 01/26/18 09:44 Freq: Status: Active Protocol: Document 01/26/18 13:24 EA (Rec: 01/26/18 13:45 EA [id number]) Lumbar Spine Range of Motion Lumbar Spine Active Percentage Testing Position standing Flexion 65 Extension 70 Rotation Left 65 Rotation Right 65 Lateral Flexion Left 60 Lateral Flexion Right 65 ROM Limitations Soft Tissue Tightness Pain Active Testing Position standing PT-OP-L Special Tests Start: 01/26/18 09:44 Freq: Status: Active Protocol: Document 01/26/18 13:24 EA (Rec: 01/26/18 13:45 EA [id number]) Special Tests Lumbar Spine Special Tests Other- 2 Test Results Foraminal compression Comments Negative Other- 1 Test Results Posterior quadrant tests Comments + facet joint Hip Special Tests Straight Leg Raise Test Results - Crystal's Test Test Results + Knee Special Tests Mansoor's Test Test Results + Neural Special Tests- Lower Body Femoral Nerve Tension Test Results - PT-OP-M Strength Start: 01/26/18 09:44 Freq: Status: Active Protocol: Document 01/26/18 14:10 EA (Rec: 01/31/18 08:28 EA [id number]) Trunk Strength Trunk Manual Muscle Testing Testing Position Supine Flexion 4- Good- Extension 4 Good Rotation Left 4- Good- Rotation Right 4- Good- Lateral Flexion Left 4- Good- Lateral Flexion Right 4- Good- Hip Strength Hip Manual Muscle Testing Right Reason Not Measured WFL Left Reason Not Measured WFL Knee Strength Knee Manual Muscle Testing Left Reason Not Measured WFL Right Reason Not Measured WFL Ankle/Foot Strength Ankle and Foot Manual Muscle Testing Right Reason Not Measured WFL Left Reason Not Measured WFL PT-OP-Q Treatments Start: 01/26/18 09:44 Freq: Status: Active Protocol: Document 03/16/18 11:08 EA (Rec: 03/16/18 11:16 EA [id number]) Therapeutic Exercises Supine Exercises 2 Supine Exercise Name Neck flexors stretch Reps/Minutes passive 1 Supine Exercise Name chin tuck with towel behind neck for resistance Reps/Minutes x 5SH x 10 reps Comments HEP comp Prone Exercises 5 Prone Exercise Name Quads stretch Side bilateral Reps/Minutes x 30SH x 2 reps Comments HEP comp 4 Prone Exercise Name Camel and Cat Side bilateral Reps/Minutes x 10 reps x 2 sets Comments HEP comp 3 Prone Exercise Name T-Ball cervical protarction- retraction Resistance 3# Reps/Minutes x 10 reps x 2 sets Comments HEP comp 2 Prone Exercise Name prone/quadroped superman reach Resistance 3 lbs Reps/Minutes x 5SH x 5 reps each side Comments HEP comp 1 Prone Exercise Name T-ball shoulder horiz abduction with chin - tuck Side bilateral Resistance 3-4 lbs Reps/Minutes x 12 reps x 2 sets Comments HEP comp Sidelying Exercises 1 Sidelying Exercise Name ITB stretch Reps/Minutes x 30 secs x 5 reps Comments HEP comp Standing Exercises 4 Standing Exercise Name Walll posture: HEP comp Side bilateral Reps/Minutes x 10 reps x 2 sets Comments focus with cervical retraction and APT 1 Standing Exercise Name FWD lunges with upright posture Reps/Minutes x 3 lines Comments HEP comp PT-OP-T Assessment and Plan Start: 01/26/18 09:44 Freq: Status: Active Protocol: Document 03/16/18 11:08 EA (Rec: 03/16/18 11:16 EA [id number]) Physical Therapy Assessment Assessment Summary Assessment Pt is discharge today upon his request; exhibits improved upright posture during dynamic and static mobility. Patient also educated and understand the significance of posture and neck/back pain. Overall patient is improved during discharge. Physical Therapy Plan Discharge Physical Therapy Discharge Reasons Patient Request
== END 2018-04-11 10:11 ==
LOC: PHYS 09:45
PROVIDERS: PCP Internal Medicine; Visit Provider Orthopaedic Surgery
DX: S39.012A Strain of muscle, fascia and tendon of lower back, initial encounter (principal)
CPT/HCPCS: 97110; 97140; 97161; 97535

== ENCOUNTER 2019-05-17 08:40 | Day surgery (SDC) | payer MEDICARE, OTHER, SELFPAY ==
--- NOTE | 2019-05-17 | PATH_ITS ---
[facility] Accession Number: [id number] . 01 Material submitted: . PART A: colon - RIGHT COLON POLYPS PART B: colon - RANDOM COLON BIOPSIES . 02 Diagnosis: A. 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 . B. Random Colon, Biopsies: Colonic mucosa with no diagnostic abnormality. Negative for active, chronic, and microscopic colitis. Negative for dysplasia and malignancy. . V 05/18/2019 1231 Local . 02 Electronically signed: . Jorge Wing MD, PhD, Pathologist NPI- [id number] . 01 Gross description: . Part A: RIGHT COLON POLYPS: Received in formalin are 3 fragment(s) of marie, soft tissue measuring 0.1 x 0.1 x 0.1 cm to 0.2 x 0.2 x 0.2 cm submitted entirely in 1 cassette(s) Part B: RANDOM COLON BIOPSIES: Received in formalin are multiple fragment(s) of marie, soft tissue measuring 0.1 x 0.1 x 0.1 cm to 0.3 x 0.2 x 0.2 cm submitted entirely in 1 cassette(s) /[facility] 05/17/2019 2309 Local . 02 Pathologist provided ICD-10: D12.6, K63.5, R19.7 . 02 CPT . 862870, [id number] Performed at: 01 [facility] [address] [facility], [place], [place] [id number] MD Jean Claude Wesley MD Phone: [phone] Performed at: 02 [facility] [place] [address] [place], [place] [id number] MD Montserrat Sousa MD Phone: [phone]
[2019-05-17 09:07] VITALS: BP 126/80; PULSE 79; RESP 16; TEMP 36.2; O2SAT 98; BMI 22.1
[2019-05-17] MEDS: SODIUM CHLORIDE 0.9% 1,000 ML 21 ML IV (09:10)
[2019-05-17] MEDS: MIDAZOLAM 5 MG/5 ML VIAL IV (09:51)
[2019-05-17] MEDS: fentaNYL 250 MCG/5 ML INJ IV (09:52)
--- NOTE | 2019-05-17 10:23 | SUR.OPER ---
LEFT EAR HEARING AID IN LABELED CONTAINER TO PACU WITH PATIENT
--- NOTE | 2019-05-17 10:27 | PM.HP.1 ---
History of Present Illness History of Present Illness Date Patient Seen: 05/17/19 Time Patient Seen: 10:27 Chief complaint: [id number] Narrative: Diarrhea and history of colon polyps Patient History Family & Social History Social History: household members spouse Tobacco & Substance use: Smoking Status Never smoker alcohol intake never Meds Home Medications and Allergies Home Medications Medication Instructions Recorded Confirmed Type rosuvastatin 10 mg PO DAILY 05/17/19 05/17/19 History Exam Vital Signs (past 8 hours): - 05/17/19 09:07 Temperature 97.2 F L Pulse Rate 79 Respiratory Rate 16 Blood Pressure 126/80 Pulse Oximetry 98 Oxygen Delivery Method Room Air Narrative Exam Narrative: Oropharynx free of lesions Chest clear to auscultation percussion Cardiac exam reveals no S3 or murmur Assessment & Plan Assessment & Plan narrative: Diarrhea rule out microscopic colitis. Risks, benefits, alternatives have been explained.
--- NOTE | 2019-05-17 10:28 | PM.OP.ENDO ---
Operative Date/Time/Diagnoses Date of procedure: 05/17/19 Time of procedure: 10:29 Pre-op diagnosis: See indication and findings Procedure & Clinicians Study performed: Colonoscopy with terminal ileoscopy and biopsy Same procedure as scheduled: Yes Indications: Diarrhea Surgeon: Toya Ochoa Procedure Notes Procedure in detail: After informed consent was obtained the patient was placed in left lateral decubitus position. The video colonoscope was introduced the rectum slowly advanced to the terminal ileum. On slow withdrawal mucosa was carefully examined. The scope was removed. The patient tolerated procedure well. Blood loss none Complications none Sedation Total sedation time 23 minutes Versed 5 mg fentanyl 100 micro g IV titration Findings 1. Two 3 mm polyps in the ascending colon Jumbo biopsy removed completely 2. Extensive sigmoid diverticulosis 3. Otherwise normal mucosa random biopsies taken to rule out microscopic colitis 4. Normal terminal ileum Will call patient with the of follow up on the biopsy results. Further recommendations will follow.
[2019-05-17 10:29] VITALS: BP 102/62; PULSE 56; RESP 13; TEMP 36.3; O2SAT 97
[2019-05-17 10:34] VITALS: BP 97/55; PULSE 52; RESP 14; O2SAT 96
[2019-05-17 10:39] VITALS: BP 105/60; PULSE 58; RESP 13; O2SAT 96
[2019-05-17 10:54] VITALS: BP 104/54; PULSE 53; RESP 12; O2SAT 97
[2019-05-17 11:15] VITALS: BP 105/65; PULSE 60; RESP 14; TEMP 36.4; O2SAT 97
== END 2019-05-17 11:29 | disposition home or self-care (01) ==
LOC: ENDO 08:42
PROVIDERS: PCP Internal Medicine; Visit Provider Internal Medicine Gastroenterology
PROC: 0DJD8ZZ Inspection of Lower Intestinal Tract, Via Natural or Artificial Opening Endoscopic (ICD-10-PCS; CPT 45378; principal; 2019-05-17 10:00)
DX: R19.7 Diarrhea, unspecified (principal); K57.30 Diverticulosis of large intestine without perforation or abscess without bleeding; D12.6 Benign neoplasm of colon, unspecified
CPT/HCPCS: 45380; J2250; J3010

== ENCOUNTER → 2019-12-01 16:38 | Outpatient (CLI) | payer MEDICARE, OTHER, SELFPAY ==
--- NOTE | 2019-12-01 | DI.MRI.S_ITS ---
PROCEDURE: MR FOOT RT WO CON INDICATIONS: Pain in arch of right foot TECHNIQUE: Noncontrast sagittal T1 spin echo and T2 fast spin echo with fat saturation, long-axis T1 spin echo and T2 fast spin echo with fat saturation, short-axis T1 spin echo and T2 fast spin echo with fat saturation through the forefoot. COMPARISON: [facility], CR, XR FOOT 3 VIEWS WEIGHT BEARING RIGHT, 09/27/2019, 10:00. [facility], CR, XR FOOT 3VW RT, 11/28/2015, 10:39. [facility], CR, XR FOOT 3+ VIEWS RIGHT, 12/08/2018, 9:46. [facility], CR, XR FOOT 3 VIEWS WEIGHT BEARING RIGHT, 11/28/2019, 9:37. FINDINGS: Image quality: Excellent. No discrete fracture identified. There is diffuse hindfoot and midfoot degenerative changes. Status post 1st MTP arthroplasty. No periarticular fluid collection seen. No gross focal osseous destruction identified within the constraints of the hardware artifact present. The visualized extensor and flexor tendons appear grossly intact. Hallux sesamoid marrow signal intensity within normal limits On the prior radiographs, there is an area of lucency involving the distal 1st metatarsal margin, which appear progressive since prior study dated 11/28/15. This is not well evaluated on the current examination due to modality. However, this could be further assessed with triple phase bone scan if there is sufficient clinical concern. There is mild thickening of the distal plantar fascia, which measures overall 7-8 mm. IMPRESSION: Postsurgical and degenerative changes as above. Mild distal plantar fascia thickening raising possibility of low-grade plantar fasciitis, versus plantar fibroma or other possibilities. No definite periarticular fluid collections or focal osseous destruction of the region of the 1st MTP arthroplasty hardware. Please see comment above regarding the distal margin of the 1st metatarsal, and if there is sufficient clinical suspicion, triple phase bone scan could be obtained for hardware loosening or infection Dictated by: Shayne Faustin M.D. on 12/04/2019 at 8:27 Approved by: Shayne Faustin M.D. on 12/04/2019 at 8:39
== END ==
PROVIDERS: PCP Internal Medicine; Referring Provider Orthopaedic Surgery Foot and Ankle Surgery; Visit Provider Orthopaedic Surgery Foot and Ankle Surgery
DX: M79.671 Pain in right foot (principal)
CPT/HCPCS: 73718

== ENCOUNTER → 2019-12-29 08:06 | Outpatient (CLI) | payer MEDICARE, OTHER, SELFPAY ==
[2019-12-29 08:51] LABS: Hemoglobin A1C% w Est Avg Glu 5.8 % (4.0-6.0)
[2019-12-29 09:06] LABS: Aspartate Aminotransferase 48 IU/L (17-59); BUN Creatinine Ratio 28.7 (6-22); Blood Urea Nitrogen 29 mg/dL (9-20); Calcium 9.4 mg/dL (8.4-10.2); Carbon Dioxide 32 mmol/L (22-32); Chloride 103 mmol/L (98-107); Cholesterol 128 mg/dL (140-199); Estimated Glomerular Filt Rate > 60.0 mL/min (>60); Glucose 104 mg/dL (80-110); HDL Cholesterol 89 mg/dL (40-60); HEMOLYSIS < 15 (0-50); LDL Cholesterol Calculated 30 mg/dL (<100); Potassium 4.8 mmol/L (3.4-5.1); Sodium 138 mmol/L (137-145); Triglycerides 45 mg/dL (35-150)
[2019-12-29 09:32] LABS: Prostate Specific Antigen 0.486 ng/mL (0.10-4.00)
== END ==
PROVIDERS: PCP Internal Medicine; Referring Provider Internal Medicine; Visit Provider Internal Medicine
DX: E78.2 Mixed hyperlipidemia (principal); R73.01 Impaired fasting glucose; N40.0 Benign prostatic hyperplasia without lower urinary tract symptoms
CPT/HCPCS: 36415; 80048; 80061; 83036; 84153; 84450

== ENCOUNTER → 2020-02-03 10:42 | Outpatient (CLI) | payer MEDICARE, OTHER, SELFPAY ==
[2020-02-05 08:00] LABS: COVID19 Sendout Not Detected (Not Detect)
== END ==
PROVIDERS: PCP Internal Medicine; Visit Provider Physician Assistant
DX: Z01.812 Encounter for preprocedural laboratory examination (principal)
CPT/HCPCS: 87635

== ENCOUNTER 2020-02-06 06:36 | Day surgery (SDC) | payer MEDICARE, OTHER, SELFPAY ==
[2020-02-05 08:43] VITALS: BMI 21.7
[2020-02-06] VITALS (8 sets, daily range): BP systolic 94–131; BP diastolic 38–77; PULSE 61–76; RESP 14–18; TEMP 36.1–36.8; O2SAT 93–95; BMI 21.7
[2020-02-06] MEDS: LACTATED RINGERS 1,000 ML 100 ML IV ×2 (07:20→09:36)
--- NOTE | 2020-02-06 07:35 | PM.PREOP ---
Pre-operative Note COVID-19 COVID-19 status: Negative Interval Note History & Physical reviewed/Exam performed by Physician: Yes Changes to H&P: No
[2020-02-06] MEDS: CEFAZOLIN 2 GM/100 ML FROZ.PIGGY IV (07:45)
--- NOTE | 2020-02-06 08:11 | SUR.OPER ---
Supine on padded OR bed, head on pillow, bilateral arms padded and tucked at side, legs uncrossed, safety belt at thigh, tape over blanket over lower legs .
[2020-02-06] MEDS: BUPIVACAINE 0.25% (PF) VIAL 30 ML INJ (08:21)
--- NOTE | 2020-02-06 10:17 | P.OP_ITS ---
Operative Date/Time/Diagnoses Date of procedure: 02/06/20 Time of procedure: 10:18 Pre-op diagnosis: recurrent left inguinal hernia Post-op diagnosis: same Procedure & Clinicians Procedure: laparoscopic preperitoneal repair of recurrent left inguinal hernia Same procedure as scheduled: Yes Indications: 79-year-old male with a recurrent left inguinal hernia after an open hernia repair Surgeon: Dequan Maria Luster Applicator: Camilla Howell Anesthesia Type: General Operative Notes Findings: Direct hernia defect, extremely adherent plug mesh within the deep inguinal ring Specimen(s): none sent Estimated Blood Loss (mL): 20 Procedure in detail: The patient was brought to the operating room and placed supine on the table. Bilateral sequential compression devices were applied. General anesthesia was induced and they were intubated with an endotracheal tube. A negrete cath was placed in sterile fashion. They 2 g ancef prior to skin incision. They were prepped and draped in sterile fashion. A time out was performed to ensure the correct patient, procedure and necessary equipment within the operating room. The skin was infiltrated with 0.25% bupivicaine. A 1 cm infra umbilical midline incision was made. The umbilical stalk was elevated the fascia sharply incised and the abdomen entered traumatically. A 10mm balloon port was placed and pneumoperitoneum was established at 15mm Hg. Inspection of the abdomen demonstrated no evidence of injury upon entry. Two 5 mm ports were then placed under direct visualization in the right and left lower quadrant lateral to the rectus muscle. A large obvious left direct hernia was observed. There was no right inguinal hernia. The peritoneum 4 cm superior to the deep inguinal ring between the medial umbilical ligament and the anterior superior iliac spine was incised. The medial preperitoneal dissection was carried out into the space of Retzius blunt ly, the bladder was swept inferiorly, the pubis and Kade's ligament were identified. The sigmoid colon was adherent to the left lateral side wall and was carefully dissected off the side wall using sharp dissection. On the inferior aspect of the peritoneal flap there was a extremely adherent plug of mesh within the deep inguinal ring. My partner came to assist with this difficult dissection. I carefully dissected the peritoneum off the mesh plug and left it in place as I did not want to risk damaging the surrounding neuro and vascular structures. I skeletonized the tissue around the plug well enough to clearly identify the iliac vessels, the vas deferens and testicular vessels. There was no evidence of an indirect defect. The attachments to the direct hernia sac were divided and the direct defect was reduced, I tacked the direct hernia sac to the transversalis with a single tac. A large Bard 3D Max mesh was then placed into the abdomen and positioned such that the myopectineal orifice was completely covered with good overlap on all sides. The mesh was anchored with tacks, one high medial, one high lateral and one into Kade's ligament. The peritoneal flap was then repositioned back to its original position and tacks were used to anchor it in position such that no bowel could herniate into the preperitoneal space. The area was examined for hemostasis. The 5mm trocars were removed under direct visualization and pneumoperitoneum was deflated through the umbilical trocar, The fascia at the umbilicus was closed with 0-Vicryl in figure of 8 fashion, skin closed with 4-0 Monocyl followed by Dermabond. The sponge and instrument count at the end of the case was correct. Both testicles were entirely within the scrotum at the end of the case. The patient emerged from anesthsia was extubated and transferred to recovery in stable condition. Complications: none Post-operative Condition: stable Disposition: same day surgery
[2020-02-06] MEDS: OXYCODONE/ACETAMINOPHEN 5/325 TABLET 1 TAB PO (10:24)
== END 2020-02-06 11:30 | disposition home or self-care (01) ==
PROVIDERS: PCP Internal Medicine; Referring Provider Internal Medicine; Visit Provider Surgery
PROC: 0YQ64ZZ Repair Left Inguinal Region, Percutaneous Endoscopic Approach (ICD-10-PCS; CPT 49651; principal; 2020-02-06 07:45)
DX: K40.91 Unilateral inguinal hernia, without obstruction or gangrene, recurrent (principal); E78.5 Hyperlipidemia, unspecified
CPT/HCPCS: 49651; C1781; J0690; J1100; J1885; J2405; J2704; J3010

== ENCOUNTER → 2020-05-23 15:47 | Outpatient (CLI) | payer MEDICARE, SELFPAY ==
[2020-05-23] MEDS: COVID-19 VACC #1, MRNA(MOD) 100 MCG/0.5 ML VIAL IM (15:53)
== END ==
PROVIDERS: PCP Internal Medicine; Visit Provider Internal Medicine
DX: Z23 Encounter for immunization (principal)
CPT/HCPCS: 0011A; 91301

== ENCOUNTER → 2020-06-20 15:49 | Outpatient (CLI) | payer MEDICARE, SELFPAY ==
[2020-06-20] MEDS: COVID-19 VACC #2, MRNA(MOD) 100 MCG/0.5 ML VIAL IM (15:51)
== END ==
PROVIDERS: PCP Internal Medicine; Visit Provider Internal Medicine
DX: Z23 Encounter for immunization (principal)
CPT/HCPCS: 0012A; 91301

== ENCOUNTER → 2021-01-15 07:58 | Outpatient (CLI) | payer MEDICARE, SELFPAY ==
[2021-01-15 09:06] LABS: Hemoglobin A1C% w Est Avg Glu 5.3 % (4.0-6.0)
[2021-01-15 09:45] LABS: Aspartate Aminotransferase 49 IU/L (17-59); BUN Creatinine Ratio 31.5 (6-22); Blood Urea Nitrogen 29 mg/dL (9-20); Calcium 9.7 mg/dL (8.4-10.2); Carbon Dioxide 32 mmol/L (22-32); Chloride 101 mmol/L (98-107); Cholesterol 146 mg/dL (140-199); Estimated Glomerular Filt Rate > 60.0 mL/min (>60); Glucose 106 mg/dL (80-110); HDL Cholesterol 86 mg/dL (40-60); HEMOLYSIS < 15 (0-50); LDL Cholesterol Calculated 49 mg/dL (<100); Potassium 4.5 mmol/L (3.4-5.1); Sodium 136 mmol/L (137-145); Triglycerides 54 mg/dL (35-150)
== END ==
PROVIDERS: PCP Internal Medicine; Referring Provider Internal Medicine; Visit Provider Internal Medicine
DX: E78.2 Mixed hyperlipidemia (principal); R73.01 Impaired fasting glucose
CPT/HCPCS: 36415; 80048; 80061; 83036; 84450

== ENCOUNTER → 2021-05-05 13:24 | Outpatient (CLI) | payer MEDICARE, SELFPAY ==
[2021-05-05 15:39] LABS: COVID19 -Nasal RAPID Negative (Negative)
== END ==
PROVIDERS: PCP Internal Medicine; Referring Provider Nurse Practitioner Family; Visit Provider Nurse Practitioner Family
DX: Z01.812 Encounter for preprocedural laboratory examination (principal); Z20.822 Contact with and (suspected) exposure to COVID-19
CPT/HCPCS: 87635; C9803

== ENCOUNTER → 2021-05-26 11:07 | Outpatient (CLI) | payer MEDICARE, SELFPAY ==
[2021-05-26 13:35] LABS: COVID19 -Nasal RAPID Negative (Negative)
== END ==
PROVIDERS: PCP Internal Medicine; Referring Provider Family Medicine Sleep Medicine; Visit Provider Family Medicine Sleep Medicine
DX: Z20.822 Contact with and (suspected) exposure to COVID-19 (principal)
CPT/HCPCS: 87635; C9803

== ENCOUNTER 2021-05-28 09:26 | Day surgery (SDC) | payer MEDICARE, SELFPAY ==
--- NOTE | 2021-05-02 12:12 | PM.PREOP ---
Pre-operative Note COVID-19 COVID-19 status: Negative Interval Note History & Physical reviewed/Exam performed by Physician: Yes Changes to H&P: No H&P completed within 30 days and has changed as indicated here:: Surgery was canceled by [facility] due to an equipment failure. not seen the day of surgery and will need to be rescheduled.
--- NOTE | 2021-05-27 19:39 | PM.PREOP ---
Pre-operative Note COVID-19 COVID-19 status: Negative Criteria for continued procedure: Expected advancement of disease process, Possibility delay results in more complex future surgery or treatment, Increased loss of function, Delay expected to result in less-positive ultimate med/surg outcome and Non-surgical alternatives not available or appropriate per current SOC Interval Note History & Physical reviewed/Exam performed by Physician: Yes Changes to H&P: No
--- NOTE | 2021-05-27 19:40 | PM.OP.1 ---
Operative Date/Time/Diagnoses Date of procedure: 05/28/21 Time of procedure: 10:45 Procedure & Clinicians Procedure: Preoperative diagnoses: 1. Right nuclear sclerotic and cortical cataract. 2. Hearing loss 3. Restless leg syndrome Postoperative diagnoses: 1. Cataract removed by phacoemulsification with placement of posterior chamber intraocular lens. Capsular dye used. Procedure: Phacoemulsification with posterior chamber intraocular lens implant Surgeon: Claudia Pro MD Complications: None Specimen: None Implant: DIBOO+21.5 myopic target Blood loss: None Anesthesia: Retrobulbar with monitored standby Description of procedure: Patient presents with a complaint of decreased vision due to cataract which is affecting activities of daily living with problems with night driving. The patient wants surgery to improve vision. The patient understands the extra risk of surgery during the COVID-19 epidemic and wishes to proceed. His surgery has been delayed twice due to cancellations related to possible equipment failures and COVID. His symptoms have continued to increase and he feels like he needs surgery to improve function. Further delay will increased surgical risk and complexity. He has tested negative for active virus within 72 hours of the procedure. The patient was taken to the operating room and given IV sedation. A retrobulbar block consisting of 6 cc of 2% xylocaine without epinephrine mixed half and half with 0.5% Marcaine with 1 cc of hyaluronidase added is placed between the medial and lateral 1/3 of the inferior orbital rim. The eye is manually massaged for 30 sec, prepped using Betadine solution, and draped in the usual sterile fashion. Temporal approach was made, a 1 mm side-port incision was made 90? from the proposed clear corneal incision position. Phenylephrine 1.5% mixed with 1% xylocaine 0.2 cc was placed into the anterior chamber. There was significant cortical changes in therefore an air bubble was placed followed by capsular dye to improve visibility. The air bubble was then irrigated out. Endocoat followed by Healon was then placed. A 2.6 mm clear incision with a 2.6 mm blade was placed. A 360 degree capsulorrhexis style capsulotomy was then performed with a cystitome needle on a Healon. Hydrodelineation and hydrodissection were performed. The phacoemulsification unit is introduced, and sculpting notice used to groove the central lens. It is then removed in chopping mode. Epi nucleus is removed with epinuclear mode and irrigation aspiration was used to remove the peripheral cortex. The posterior capsule is polished. The intraocular lens is selected, inspected, power confirmed, and placed in the posterior chamber. The wound was stromally hydrated and tested for leaks, there was none and it was left sutureless. Intracameral moxifloxacin 0.1 cc was placed into the anterior chamber. Kenalog 0.2 cc was placed in the superior subconjunctival space. A drop of antibiotic and was placed and the eye was patched and shielded. The patient was stable and returned to the recovery room in excellent condition. He was noted to have restless leg syndrome during the surgery. Dictated by: Claudia Pro MD Copy to: [facility] Same procedure as scheduled: Yes
[2021-05-28 09:51] VITALS: BP 135/80; PULSE 73; RESP 15; TEMP 37.3; O2SAT 98; BMI 21.6
[2021-05-28] MEDS: PROPARACAINE 0.5% OPHTH SOL 2 DROPS EYE-OP (10:06)
[2021-05-28] MEDS: CATARACT EYE COMPOUND (10 DROPS/SYRINGE) 3 DROPS EYE-OP (10:06)
[2021-05-28] MEDS: ERYTHROMYCIN OPHTH 1 GM OINT 1 APPLIC EYE-RIGHT (11:35)
[2021-05-28] MEDS: HYALURONATE SODIUM 30 MG-10 MG/ML SYRINGES 1 BOX INTRAOCULA (11:36)
[2021-05-28] MEDS: TRIAMCINOLONE 50 MG/5 ML VIAL INJ (11:37)
[2021-05-28] MEDS: PHENYLEPHRINE/LIDOCAINE VIAL (OR) 0.2 ML EYE-OP (11:37)
[2021-05-28] MEDS: MOXIFLOXACIN INJ 4 MG/0.8 ML VIAL 0.5 MG EYE-OP (11:37)
[2021-05-28] MEDS: TRYPAN BLUE 0.5 ML SYRINGE INJ (11:37)
[2021-05-28] MEDS: LIDOCAINE 2% 4 ML, BUPIVACAINE 0.5% (PF) 4 ML, HYALURONIDASE 150 UNIT INJ (11:38)
[2021-05-28] MEDS: BALANCED SALT IRRIG SOLN NO.2 500 ML, EPINEPHrine 1 MG IRR (11:38)
[2021-05-28 12:20] VITALS: BP 118/73; PULSE 64; RESP 16; TEMP 36.6; O2SAT 100
--- NOTE | 2021-05-28 12:44 | SUR.PHASEII ---
Pt ready to go, ride called, pt left in stable condition.
== END 2021-05-28 12:40 | disposition home or self-care (01) ==
LOC: OR 09:28
PROVIDERS: PCP Internal Medicine; Referring Provider Ophthalmology; Visit Provider Ophthalmology
PROC: (CPT 66984; principal; 2021-05-28 10:45)
DX: H25.811 Combined forms of age-related cataract, right eye (principal); G25.81 Restless legs syndrome
CPT/HCPCS: 66984; J0171; J2704; J3301; J3470

== ENCOUNTER → 2021-06-17 11:07 | Outpatient (CLI) | payer MEDICARE, SELFPAY ==
[2021-06-17 12:49] LABS: BUN Creatinine Ratio 25.9 (6-22); Blood Urea Nitrogen 29 mg/dL (9-20); Calcium 9.2 mg/dL (8.4-10.2); Carbon Dioxide 31 mmol/L (22-32); Chloride 101 mmol/L (98-107); Estimated Glomerular Filt Rate > 60.0 mL/min (>60); Glucose 103 mg/dL (80-110); HEMOLYSIS < 15 (0-50); Potassium 4.4 mmol/L (3.4-5.1); Sodium 137 mmol/L (137-145)
[2021-06-17 13:19] LABS: Thyroid Stimulating Hormone 3.49 uIU/mL (0.47-4.68)
== END ==
PROVIDERS: PCP Internal Medicine; Referring Provider Internal Medicine Cardiovascular Disease; Visit Provider Internal Medicine Cardiovascular Disease
DX: I49.1 Atrial premature depolarization (principal); E78.2 Mixed hyperlipidemia; R01.1 Cardiac murmur, unspecified; I49.2 Junctional premature depolarization
CPT/HCPCS: 36415; 80048; 83735; 84443

== ENCOUNTER → 2021-06-23 08:01 | Outpatient (CLI) | payer MEDICARE, SELFPAY ==
--- NOTE | 2021-06-23 | DI.ECHO.S_ITS ---
[facility]---------+ [facility] +---------+ : : [id number] : : : : [id number] : : : : Phone: [phone]+ Echocardiogram Report + + :Name: DALLAS COOK Study Date: 06/23/2021 Height: 66.5 in: :[facility] ReadingLocation: Weight: 131 lb : : Gender: Male BSA: 1.7 m2 : :: 1940 Age: 81 yrs BP: 133/75 mmHg: :Reason For Study: AORTIC STENOSIS : :Ordering Physician: BRADY, : :ELIZABETH Performed By: Soraya Schmidt : :Referring: ELIZABETH ABREU : + + Interpretation Summary The left ventricle is normal in size. The ejection fraction is estimated to be 60-65%. There has been no significant change in LVEF since the previous exam. 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 The right ventricle is borderline dilated. The right ventricular systolic function is normal. There is discrete nodular thickening of the non- coronary cusp which was seen in the previous study but appears to be more prominent. No significant aortic stenosis seen. There is a small pedunculated mobile structure seen intermittently in the LV outflow tract. The tip of the structure is calcified. It does not appears to be typical vegetation or thrombus. This is new. Discussed the findings with the patient. Mild aortic regurgitation. Compared to the prior echo study, there has been no change in the severity of aortic regurgitation. There is mild to moderate tricuspid regurgitation. Compared to the prior echo exam, there has been an increase in TR severity. The right ventricular systolic pressure is estimated to be at least 31 mmHg based on an estimated right atrial pressure of 3 mm Hg. Mild atherosclerotic plaque(s) in the aortic arch. Procedure: A two-dimensional transthoracic echocardiogram with color flow and Doppler was performed. The study quality was technically adequate. Comparison is made with the echocardiogram of 10/06/2016. The patient was in sinus rhythm with heart rates between 55-60 bpm during the exam. The patient had a bundle branch block rhythm during the exam. Left Ventricle: Proximal septal thickening is noted. The left ventricle is normal in size. 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 There is no thrombus. A false chord is noted (normal variant). The ejection fraction is estimated to be 60-65%. There has been no significant change since the previous exam. There are no focal wall motion abnormalities. Diastolic parameters suggest a relaxation abnormality of the left ventricle, consistent with probable normal filling pressures. Right Ventricle: The right ventricle is borderline dilated. The right ventricular systolic function is normal. Atria: The left atrium is severely dilated. The left atrium has mildly increased in size since the prior echo exam. Right atrial size is normal. There is no Doppler evidence for an interatrial shunt. The thickening of interatrial septum suggests lipomatous hypertrophy. Mitral Valve: The mitral valve leaflets appear borderline thickened, but open well. There is mild to moderate mitral regurgitation. Aortic Valve: The aortic valve is mildly calcified. The aortic valve opens well. There is discrete nodular thickening of the non- coronary cusp. There is a small pedunculated mobile structure seen intermittently in the LV outflow tract. The tip of the structure is calcified. It does not appears to be typical vegetation or thrombus. There is no aortic valve stenosis. There is mild aortic regurgitation. Compared to the prior echo study, there has been no change in the severity of aortic regurgitation. Tricuspid Valve: The tricuspid valve is normal. There is mild to moderate tricuspid regurgitation. The right ventricular systolic pressure is estimated to be at least 31 mmHg based on an estimated right atrial pressure of 3 mm Hg. Compared to the prior echo exam, there has been an increase in TR severity. Pulmonic Valve: The pulmonic valve leaflets are thin and pliable; valve motion is normal. There is mild pulmonic regurgitation. Great Vessels: The aortic root is normal size. The dimensions of the ascending aorta are normal. Mild atherosclerotic plaque(s) in the aortic arch. The IVC is of normal diameter and collapses greater than 50% with a sniff. This suggests a low right atrial pressure of 3 mm Hg. Pericardium/ Pleura There is no pericardial effusion. There is no pleural effusion. MMode/2D Measurements & Calculations LVIDd: 4.8 cm LVOT diam: 2.2 cm LVIDs: 3.2 cm Ao root diam: 3.8 cm FS: 34.0 % asc Aorta Diam: 3.1 cm IVSd: 1.0 cm Ao Arch Diam (Prox Trans): 2.8 cm LVPWd: 0.91 cm LV lozoya. diameter/BSA (cm/m^2): 2.9 LV sys. diameter/BSA (cm/m^2): 1.9 LA A2 area: 34.4 cm2 RA long axis: 4.9 cm LA A4 area: 22.5 cm2 RA area: 16.8 cm2 LA length (vol): 5.8 cm RA vol: 48.6 ml LA vol: 112.4 ml RA : 28.9 ml/m2 LA vol index: 66.9 ml/m2 IVC diam: 2.0 cm RVD1 (basal): 4.3 cm TAPSE: 2.6 cm Doppler Measurements & Calculations Ao V2 max: 185.0 cm/sec LVOT Max Ta: 205.6 cm/sec Ao V2 mean: 127.9 cm/sec LV V1 max P.9 mmHg Ao max P.7 mmHg LV V1 VTI: 45.4 cm Ao mean P.4 mmHg LADONNA(I,D): 4.1 cm2 Ao V2 VTI: 42.4 cm LADONNA(V,D): 4.2 cm2 sev ratio: 1.1 LADONNA indexed to BSA (cm^2/m^2): 2.4 MV E max ta: 60.5 cm/sec TR max ta: 264.8 cm/sec MV A max ta: 75.7 cm/sec TR max P.0 mmHg MV E/A: 0.80 PA pr(Accel): 25.9 mmHg Med Peak E' Ta: 5.6 cm/sec E/E' med: 10.9 Lat Peak E' Ta: 7.0 cm/sec E/E' lat: 8.6 E/e' average: 9.8 MV dec time: 0.21 sec SV(LVOT): 173.5 ml Reading Physician:04:13 PM
== END ==
PROVIDERS: PCP Internal Medicine; Referring Provider Internal Medicine Cardiovascular Disease; Visit Provider Internal Medicine Cardiovascular Disease
DX: I08.3 Combined rheumatic disorders of mitral, aortic and tricuspid valves (principal)
CPT/HCPCS: 93306

== ENCOUNTER → 2021-06-27 07:21 | Outpatient (CLI) | payer MEDICARE, SELFPAY ==
[2021-06-27 08:56] LABS: Add Manual Diff / Slide Review NO; Basophils Absolute Auto 0 /uL (0-100); Basophils Percent Auto 0.8 % (0-2); Eosinophils Absolute Auto 200 /uL (0-450); Eosinophils Percent Auto 3.3 % (2-4); Hematocrit 38.4 % (41-53); Lymphocytes Absolute Auto 900 /uL (1100-4500); Lymphocytes Percent Auto 17.5 % (25-40); Mean Corpuscular HGB Conc 33.8 % (30-36); Mean Corpuscular Hemoglobin 31.7 PG (26-34); Mean Corpuscular Volume 93.7 fL (80-100); Monocytes Absolute Auto 400 /uL (0-900); Monocytes Percent Auto 7.1 % (3-14); Neutrophils Absolute Auto 3600 /uL (1500-7000); Neutrophils Percent Auto 71.3 % (50-75); Platelet Count 142 X10^3/uL (150-400); Red Cell Distribution Width 13.9 % (11.6-14.8); White Blood Cell Count 5.1 X10^3/uL (4.5-11.0)
[2021-06-27 09:35] LABS: C-Reactive Protein Quant < 0.5 mg/dL (<1.0)
[2021-06-27 12:21] LABS: Erythrocyte Sedimentation Rate 6 MM/HR (0-15)
== END ==
PROVIDERS: PCP Internal Medicine; Referring Provider Internal Medicine Cardiovascular Disease; Visit Provider Internal Medicine Cardiovascular Disease
DX: I51.89 Other ill-defined heart diseases (principal)
CPT/HCPCS: 36415; 85025; 85651; 86140; 87040

== ENCOUNTER → 2021-07-21 11:10 | Outpatient (CLI) | payer MEDICARE, SELFPAY ==
[2021-07-21 14:19] LABS: COVID19 -Nasal RAPID Negative (Negative)
== END ==
PROVIDERS: PCP Internal Medicine; Visit Provider Family Medicine Sleep Medicine
DX: Z20.822 Contact with and (suspected) exposure to COVID-19 (principal)
CPT/HCPCS: 87635; C9803

== ENCOUNTER → 2021-08-09 08:21 | Outpatient (CLI) | payer MEDICARE, SELFPAY ==
[2021-08-12 09:14] LABS: Cholesterol, Total 162 mg/dL (100-199); HDL-Cholesterol 92 mg/dL (>39); HDL-Particle (Total) 40.7 umol/L (>=30.5); LDL Particle 528 nmol/L (<1000); LDL-Cholsterol 60 mg/dL (0-99); LP-IR Score <25 (<=45); Small LDL- Particle <90 nmol/L (<=527); Triglycerides 46 mg/dL (0-149)
== END ==
PROVIDERS: PCP Internal Medicine; Referring Provider Nurse Practitioner; Visit Provider Nurse Practitioner
DX: E78.2 Mixed hyperlipidemia (principal)
CPT/HCPCS: 36415; 80061; 83704

== ENCOUNTER → 2022-03-18 07:13 | Outpatient (CLI) | payer MEDICARE, SELFPAY ==
[2022-03-18 08:19] LABS: Glucose 102 mg/dL (80-110)
[2022-03-18 08:44] LABS: Prostate Specific Antigen 0.513 ng/mL (0.10-4.00)
[2022-03-18 08:55] LABS: TSH w/ Reflex to FT4 4.74 uIU/mL (0.47-4.68)
[2022-03-18 09:00] LABS: Hemoglobin A1C% w Est Avg Glu 5.7 % (4.0-6.0)
[2022-03-18 09:03] LABS: Vitamin B12 705 pg/mL (239-931)
[2022-03-18 09:51] LABS: Free T4, Direct Thyroxine 0.77 ng/dL (0.78-2.19)
[2022-03-20 13:04] LABS: Albumin 4.1 g/dL (2.9-4.4); Alpha-1-Globulin 0.2 g/dL (0.0-0.4); Alpha-2-Globulin 0.7 g/dL (0.4-1.0); Gamma Globulin 0.9 g/dL (0.4-1.8); Globulin Total 2.6 g/dL (2.2-3.9); Protein, Total 6.7 g/dL (6.0-8.5)
== END ==
PROVIDERS: PCP Internal Medicine; Referring Provider Internal Medicine; Visit Provider Internal Medicine
DX: R73.01 Impaired fasting glucose (principal); N40.0 Benign prostatic hyperplasia without lower urinary tract symptoms; E78.2 Mixed hyperlipidemia; E53.8 Deficiency of other specified B group vitamins; R77.9 Abnormality of plasma protein, unspecified
CPT/HCPCS: 36415; 82607; 82947; 83036; 84153; 84155; 84165; 84439; 84443

== ENCOUNTER → 2022-12-29 19:40 | Outpatient (CLI) | payer MEDICARE, SELFPAY ==
--- NOTE | 2022-12-29 | DI.MRI.S_ITS ---
PROCEDURE: MR LUMBAR SPINE WO CON INDICATIONS: spinal stenosis, lumbar region TECHNIQUE: Noncontrast sagittal T1 spin echo and T2 fast echo, sagittal STIR, and T2 fast spin echo through the lumbar spine. In cases with scoliosis, additional coronal T2 fast spin echo may be performed. COMPARISON: [facility], MR, MR LUMBAR SPINE WO CON, 09/28/2017, 9:11. FINDINGS: Image quality: Excellent. Alignment and Curvature: Minimal retrolisthesis of L1 on L2. Otherwise, there is normal bony alignment. Bone Marrow: Degenerative endplate changes, most pronounced at L5-S1.. No acute vertebral body compression fractures. Spinal Cord: Conus medullaris terminates at the T12-L1 level. Visualized cord demonstrates normal signal and size. Paraspinous Soft Tissues: No paravertebral masses. 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 T12-L1: No central canal or neural foraminal stenosis. L1-L2: Disc desiccation height loss with a posterior disc bulge. Facet arthropathy. Stable mild central canal stenosis and moderate bilateral neural foraminal stenosis. L2-L3: Disc desiccation and small posterior disc bulge. Facet arthropathy and thickening of ligamentum flavum. No central canal or neural foraminal stenosis. L3-L4: Disc desiccation height loss with small posterior disc bulge. Facet arthropathy and thickening of the ligamentum flavum. Progression of mild central canal stenosis. In mild narrowing of the lateral recesses. L4-L5: Disc desiccation height loss with a posterior disc bulge. Facet arthropathy and thickening of ligamentum flavum. No central canal stenosis. Stable mild neural foraminal stenosis bilaterally. L5-S1: Severe disc desiccation and height loss. Facet arthropathy. No central canal stenosis. Moderate to severe bilateral neural foraminal stenosis is stable. IMPRESSION: 1. Multilevel degenerative changes of the lumbar spine as described above. 2. There is mild progression of mild central canal stenosis at L3-L4. Stable mild central canal stenosis at L1-L2. 3. Multilevel foraminal stenosis, moderate to severe bilaterally at L5-S1 and moderate bilaterally at L1-L2 is stable compared to prior. Additional levels of mild neural foraminal stenosis as described above. 4. 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 Follow-up ultrasound is recommended Dictated by: Ang Munroe M.D. on 12/30/2022 at 9:42 Approved by: Ang Munroe M.D. on 12/30/2022 at 9:52
== END ==
PROVIDERS: Family Provider Internal Medicine; PCP Internal Medicine; Referring Provider Physical Medicine & Rehabilitation; Visit Provider Physical Medicine & Rehabilitation
DX: M48.062 Spinal stenosis, lumbar region with neurogenic claudication (principal); M48.07 Spinal stenosis, lumbosacral region; M47.816 Spondylosis without myelopathy or radiculopathy, lumbar region; M47.817 Spondylosis without myelopathy or radiculopathy, lumbosacral region; I77.811 Abdominal aortic ectasia
CPT/HCPCS: 72148

== ENCOUNTER → 2023-03-16 13:14 | Outpatient (CLI) | payer MEDICARE, SELFPAY ==
[2023-03-16 14:28] LABS: Hemoglobin A1C% w Est Avg Glu 5.8 % (4.0-6.0)
[2023-03-16 14:52] LABS: Aspartate Aminotransferase 45 IU/L (17-59); BUN Creatinine Ratio 28.6 (6-22); Blood Urea Nitrogen 30 mg/dL (9-20); Calcium 9.6 mg/dL (8.4-10.2); Carbon Dioxide 29 mmol/L (22-32); Chloride 101 mmol/L (98-107); Cholesterol 145 mg/dL (140-199); Estimated Glomerular Filt Rate > 60 mL/min (>60); Glucose 91 mg/dL (80-110); HDL Cholesterol 83 mg/dL (40-60); HEMOLYSIS < 15 (0-50); LDL Cholesterol Calculated 53 mg/dL (<100); Potassium 3.9 mmol/L (3.4-5.1); Sodium 137 mmol/L (137-145); Triglycerides 47 mg/dL (35-150)
[2023-03-16 15:19] LABS: Prostate Specific Antigen 0.464 ng/mL (0.10-4.00)
== END ==
PROVIDERS: Family Provider Internal Medicine; PCP Internal Medicine; Referring Provider Internal Medicine; Visit Provider Internal Medicine
DX: E78.2 Mixed hyperlipidemia (principal); R73.01 Impaired fasting glucose; I49.3 Ventricular premature depolarization
CPT/HCPCS: 36415; 80048; 80061; 83036; 84153; 84450

== ENCOUNTER → 2023-05-25 12:43 | Outpatient (CLI) | payer MEDICARE, SELFPAY ==
--- NOTE | 2023-05-25 12:44 | DI.ECHO.S_ITS ---
[facility] +---------+ : : [address] : : : : [id number] : : : : Phone: [phone]+ Echocardiogram Report + + :Name: DALLAS COOK Study Date: 05/25/2023 Height: 67 in : :[facility] ReadingLocation: Weight: 129 lb : : Gender: Male BSA: 1.7 m2 : :: 1940 Age: 83 yrs BP: 125/74 mmHg: :Reason For Study: MITRAL INSUFFICIENCY : :Ordering Physician: BRADY, : :CRISTIAN Performed By: Soraya Schmidt : :Referring: ELIZABETH ABREU : + + Interpretation Summary The left ventricle is normal in size. The left ventricular ejection fraction is normal. The ejection fraction is estimated to be 60-65%. There has been no significant change in LVEF since the previous exam. The right ventricle is borderline dilated. The right ventricular systolic function is normal. There is mild to moderate mitral regurgitation. Compared to the prior echo study, there has been no change in the severity of mitral regurgitation. There is mild aortic regurgitation. Compared to the prior echo study, there has been no change in the severity of aortic regurgitation. There is mild to moderate tricuspid regurgitation. Compared to the prior echo exam, there has been no change in TR severity. The right ventricular systolic pressure is estimated to be at least 33 mmHg based on an estimated right atrial pressure of 8 mm Hg. Procedure: A two-dimensional transthoracic echocardiogram with color flow and Doppler was performed. The study quality was technically adequate. Comparison is made with the echocardiogram of 06/23/2021. The patient was in sinus bradycardia with heart rates between 53-60 bpm during the exam. Left Ventricle: The left ventricle is normal in size. Proximal septal thickening is noted. There is no echo evidence for significant left ventricular outflow tract obstruction. A false chord is noted (normal variant). There is no thrombus. The ejection fraction is estimated to be 60- 65%. The left ventricular ejection fraction is normal. There has been no significant change since the previous exam. There are no focal wall motion abnormalities. Diastolic parameters suggest a relaxation abnormality of the left ventricle, consistent with probable normal filling pressures. Right Ventricle: The right ventricle is borderline dilated. There has been no significant change since the previous study. The right ventricular systolic function is normal. Atria: The left atrium is severely dilated. There has been no significant change since the previous study. Right atrial size is normal. The interatrial septum bows toward right atrium consistent with elevated left atrial pressure. Mitral Valve: The mitral valve leaflets appear borderline thickened, but open well. There is mild to moderate mitral annular calcification. Redundant elongated chordae are noted. There is mild to moderate mitral regurgitation. Compared to the prior echo study, there has been no change in the severity of mitral regurgitation. Aortic Valve: The aortic valve is mildly calcified. The aortic valve opens well. There is discrete nodular thickening of the non- coronary cusp. The peak aortic velocity is 2.1 m/sec. The aortic valve mean gradient is 9.8 mmHg. There is no hemodynamically significant valvular aortic stenosis. There is mild aortic regurgitation. Compared to the prior echo study, there has been no change in the severity of aortic regurgitation. Tricuspid Valve: The tricuspid valve is normal. There is mild to moderate tricuspid regurgitation. The right ventricular systolic pressure is estimated to be at least 33 mmHg based on an estimated right atrial pressure of 8 mm Hg. Compared to the prior echo exam, there has been no change in TR severity. Pulmonic Valve: The pulmonic valve leaflets are thin and pliable; valve motion is normal. There is mild pulmonic regurgitation. Great Vessels: The aortic root is normal size. The dimensions of the ascending aorta are normal. The IVC is dilated (diameter is greater than 2.1 cm) yet it collapses greater than 50% with a sniff. This suggests a right atrial pressure of 8 mm Hg. Pericardium/ Pleura There is no pericardial effusion. There is no pleural effusion. MMode/2D Measurements & Calculations LVIDd: 5.2 cm LVOT diam: 2.2 cm LVIDs: 3.7 cm Ao root diam: 3.6 cm FS: 28.7 % asc Aorta Diam: 3.3 cm IVSd: 1.3 cm Ao Arch Diam (Prox Trans): 3.0 cm LVPWd: 0.95 cm LV lozoya. diameter/BSA (cm/m^2): 3.1 LV sys. diameter/BSA (cm/m^2): 2.2 LA A2 area: 24.6 cm2 RA long axis: 4.4 cm LA A4 area: 20.1 cm2 RA area: 15.6 cm2 LA length (vol): 5.5 cm RA vol: 47.3 ml LA vol: 77.0 ml RA : 28.2 ml/m2 LA vol index: 45.9 ml/m2 IVC diam: 2.1 cm RVD1 (basal): 4.4 cm RVD2 (mid): 3.1 cm TAPSE: 2.5 cm Doppler Measurements & Calculations Ao V2 max: 219.3 cm/sec LVOT Max Ta: 181.4 cm/sec Ao V2 mean: 146.4 cm/sec LV V1 max P.2 mmHg Ao max P.2 mmHg LV V1 VTI: 39.9 cm Ao mean P.8 mmHg LADONNA(I,D): 3.5 cm2 Ao V2 VTI: 44.6 cm LADONNA(V,D): 3.3 cm2 sev ratio: 0.89 LADONNA indexed to BSA (cm^2/m^2): 2.1 AI P1/2t: 807.3 msec AI dec slope: 162.5 cm/sec2 MV E max ta: 42.0 cm/sec TR max ta: 248.0 cm/sec MV A max ta: 71.6 cm/sec TR max P.6 mmHg MV E/A: 0.59 PA V2 max: 121.8 cm/sec Med Peak E' Ta: 5.6 cm/sec PA V2 mean: 80.4 cm/sec E/E' med: 7.5 PA mean P.9 mmHg Lat Peak E' Ta: 6.1 cm/sec PA pr(Accel): 31.0 mmHg E/E' lat: 6.8 E/e' average: 7.2 MV dec time: 0.36 sec SV(LVOT): 157.6 ml Reading Physician:03:52 PM
== END ==
LOC: ECHO 12:43
PROVIDERS: Family Provider Internal Medicine; PCP Internal Medicine; Referring Provider Internal Medicine Cardiovascular Disease; Visit Provider Internal Medicine Cardiovascular Disease
DX: I08.3 Combined rheumatic disorders of mitral, aortic and tricuspid valves (principal)
CPT/HCPCS: 93306

== ENCOUNTER → 2023-09-09 15:24 | Outpatient (CLI) | payer MEDICARE, SELFPAY ==
[2023-09-09 16:58] LABS: Influenza A - CEPHEID Flu A NEGATIVE (NEGATIVE); Influenza B - CEPHEID Flu B NEGATIVE (NEGATIVE); Respiratory Syncytial Virus Negative (Negative)
[2023-09-09 16:59] LABS: COVID-19 CEPHEID 4-PLEX PCR Negative (Negative)
== END ==
PROVIDERS: Family Provider Internal Medicine; PCP Internal Medicine; Visit Provider Nurse Practitioner Family
DX: R50.9 Fever, unspecified (principal)
CPT/HCPCS: 0241U

== ENCOUNTER → 2023-09-09 16:02 | Outpatient (CLI) | payer MEDICARE, SELFPAY ==
--- NOTE | 2023-09-09 16:03 | DI.RAD.S_ITS ---
PROCEDURE: XR CHEST 2V INDICATIONS: Cough TECHNIQUE: 2 views of the chest were acquired. COMPARISON: [facility], , CHEST 2 VIEW, 11/26/2009, 7:48. FINDINGS: Surgical changes and devices: None. Lungs and pleura: Diffuse interstitial prominence. Mild perihilar airway thickening. No focal consolidation. No pneumothorax or substantial pleural effusion. Mediastinum: Mediastinal contours are normal. Heart size is normal. Bones and chest wall: No suspicious bony abnormalities. Soft tissues appear unremarkable. IMPRESSION: Diffuse interstitial prominence with mild bilateral perihilar airway thickening suggestive of bronchitis either infectious or inflammatory in etiology. No dense consolidation seen. Dictated by: Gael Brandt M.D. on 09/10/2023 at 10:25 Approved by: Gael Brandt M.D. on 09/10/2023 at 10:26
== END ==
PROVIDERS: Family Provider Internal Medicine; PCP Internal Medicine; Referring Provider Nurse Practitioner Family; Visit Provider Nurse Practitioner Family
DX: R05.9 Cough, unspecified (principal); R50.9 Fever, unspecified
CPT/HCPCS: 0241U; 71046

== ENCOUNTER 2023-11-09 18:27 | Emergency (ER) | payer MEDICARE, SELFPAY ==
[2023-11-09] VITALS (25 sets, daily range): BP systolic 124–152; BP diastolic 59–68; PULSE 45–66; RESP 14–34; TEMP 35.8; O2SAT 93–100; BMI 20.9
--- NOTE | 2023-11-09 18:41 | DI.RAD.S_ITS ---
PROCEDURE: XR SHOULDER RT MIN 2V INDICATIONS: fall, pain TECHNIQUE: 2 views of the shoulder were acquired. COMPARISON: None. FINDINGS: Bones: Anterior shoulder dislocation. Soft tissue anchor with surrounding bone fragments are seen adjacent to the glenoid. Soft tissues: No suspicious calcifications elsewhere. IMPRESSION: Anterior shoulder dislocation. There are displaced bone fragments and a soft tissue screw anchor seen adjacent to the glenoid Dictated by: Ajith Brantley M.D. on 11/09/2023 at 19:31 Approved by: Ajith Brantley M.D. on 11/09/2023 at 19:32
--- NOTE | 2023-11-09 18:42 | DI.RAD.S_ITS ---
PROCEDURE: XR SHOULDER RT 1V INDICATIONS: post dislocation reduction TECHNIQUE: 1 views of the shoulder were acquired. COMPARISON: [facility], CR, XR SHOULDER RT MIN 2V, 11/09/2023, 18:43. FINDINGS: Bones: Interval reduction of previous anterior dislocation. There is good anatomic alignment. No visualized fracture. Tendon anchors noted overlying the joint space possibly out of alignment secondary to dislocation. Soft tissues: No suspicious soft tissue calcifications. IMPRESSION: Good anatomic alignment without visualized fracture. Tendon anchors noted overlying the joint space suspicious for malalignment secondary to dislocation. Dictated by: Brenna Omalley M.D. on 11/09/2023 at 21:29 Approved by: Brenna Omalley M.D. on 11/09/2023 at 21:31
[2023-11-09] MEDS: HYDROMORPHONE 0.5 MG INJ IV ×2 (19:30→19:53)
--- NOTE | 2023-11-09 20:40 | ED_ITS ---
HPI - Fall General Chief Complaint: Fall Stated Complaint: GLF,R shoulder Time Seen by Provider: 11/09/23 19:20 Source: patient and EMS Mode of arrival: EMS History of Present Illness HPI Narrative: 83-year-old gentleman with a history of hyperlipidemia who suffered a mechanical fall, feels he tripped over his right foot and landed on his right elbow with shoulder pain. Minor abrasion to the elbow but he does not have elbow or wrist pain or tenderness. This was not associated with syncope, palpitations or recent illness. He was able to get up not complaining of hip or lower extremity pain. Related Data Previous Rx's Medication Instructions Recorded rosuvastatin 10 mg tablet 10 mg PO DAILY #90 tabs 03/22/23 benzonatate 200 mg capsule 200 mg PO BID PRN cough #28 caps 09/09/23 fluticasone propionate 50 1 spray intranasal Q12H #16 grams 09/09/23 mcg/actuation nasal spray,suspension (Flonase Allergy Relief) azithromycin 250 mg tablet See Rx Instructions PO .COMPLEX #6 10/01/23 tabs mefloquine 250 mg tablet 250 mg PO QWEEK #10 tabs 10/01/23 oxycodone-acetaminophen 5 mg-325 1 tab PO Q6H PRN pain #10 tabs 11/09/23 mg tablet Allergies Allergy/AdvReac Type Severity Reaction Status Date / Time ciprofloxacin AdvReac Tendonitis Verified 11/09/23 18:41 Review of Systems Review of Systems Narrative: Pertinent positive and negative findings as per HPI Patient History Medical History Infrarenal abdominal aortic aneurysm (AAA) without rupture Polyneuropathy, unspecified History of colonic polyps Chronic low back pain Impaired fasting glucose PVC (premature ventricular contraction) Mixed hyperlipidemia Easy bruisability Hepatitis A (1950) Heart murmur Mitral regurgitation Hernia Inguinal hernia, left Surgical History Hx of repair of left rotator cuff (05/08/14) Hx of repair of right rotator cuff (08/09/18) H/O left inguinal hernia repair (10/02/15) H/O right inguinal hernia repair Family History Mother Cancer Social History marital status: household members: spouse occupational status: previously employed Smoking Status: Never smoker alcohol intake: never Smoking Status: Never smoker alcohol intake frequency: other Substance Use Type: does not use Exam Initial Vital Signs Initial Vital Signs: Vital Signs Pulse Oximetry 96 11/09/23 18:32 General: Frail appearing, in no acute distress. Able to give a complete and coherent history. HEENT: Moist mucous membranes, normal sclera with reactive pupils, Respiratory: Lungs are clear to auscultation, no wheezing no rales no rhonchi. Full and symmetrical air movement Cardiac: Regular rate and rhythm Abdomen: Soft, nontender, good bowel tones, no flank pain Skin: Warm and dry, no rashes Neurologic: Grossly neurologically intact with no obvious asymmetries or abnormalities Extremities: Obvious deformity with anterior fullness in the right shoulder. He is neurovascularly intact. Elbow can be extended without pain. No pain to the wrist or hand. Lower extremities are unremarkable Psych: Cooperative, appropriate insight and affect Procedures Orthopedic Joint Reduction right shoulder: Time of procedure: 21:13 Time Out Performed: Yes Side: right Joint Reduction Location: shoulder Analgesia: procedural sedation Shoulder Technique Used (if applicable): scapula manipulation and external rotation Post-reduction neuro exam: intact Post-reduction vascular: intact Post Reduction X-Ray Obtained: Yes Post Reduction X-Ray Results: reduced Splint Applied: Yes (sling) Patient Tolerated Procedure: Well Procedural Sedation Time of procedure: 21:12 Consent signed: Yes Time out performed: Yes Indication: fracture/dislocation reduction ASA Class: II Time of Last PO Intake: 14:00 Preparation: alarm security or surveillance monitor applied, pulse oximeter, capnometry used, supplemental O2 applied, suction/airway equipment at bedside and IV secured IV Propofol dose (mg): 100 (20 mg aliquots over 5 minutes) Intraservice time/total sedation time (min): 10 ED Sedation Level: Moderate (Concious) Complications: none Course Orders Ordered: ED Orders 11/09/23 18:41 XR shoulder RT min 2V Stat 11/09/23 18:42 XR shoulder RT 1V Stat Hydromorphone HCl (Hydromorphone 0.5 Mg Inj) 0.5 mg IV Q15MIN PRN PRN Reason: Pain, Last Admin: 11/09/23 19:53 Dose: 0.5 mg Documented By: Admin: 11/09/23 19:30 Dose: 0.5 mg Documented By: DES Ondansetron HCl (Ondansetron 4 Mg/2 Ml Inj) 4 mg IV NOW PRN PRN Reason: nausea Discontinued Medications Sodium Chloride (Normal Saline 0.9%) 1,000 mls @ 1,000 mls/hr IV BOLUS ONE Stop: 11/09/23 22:14 Last Admin: 11/09/23 21:17 Dose: 1,000 mls/hr Documented By: DES Ketorolac Tromethamine (Ketorolac 30 Mg/Ml Vial) 7.5 mg IV NOW ONE Stop: 11/09/23 22:15 Propofol (Propofol 200 Mg/20 Ml Vial) 200 mg IV NOW ONE Stop: 11/09/23 20:39 Last Admin: 11/09/23 20:49 Dose: 100 mg Documented By: DES Vital Signs Vital signs: Vital Signs - 8 hr 11/09/23 18:32 11/09/23 18:33 11/09/23 18:33 Temperature Pulse Rate 62 Respiratory Rate Blood Pressure 142/64 H Pulse Oximetry 96 94 Oxygen Delivery Method 11/09/23 18:36 11/09/23 19:02 11/09/23 19:30 Temperature 96.5 F L Pulse Rate 57 L 52 L 47 L Respiratory Rate 18 Blood Pressure 142/64 H Pulse Oximetry 97 95 97 Oxygen Delivery Method Room Air 11/09/23 19:55 11/09/23 19:55 11/09/23 20:00 Temperature Pulse Rate 57 L Respiratory Rate Blood Pressure 131/60 124/61 Pulse Oximetry 95 Oxygen Delivery Method 11/09/23 20:00 11/09/23 20:30 11/09/23 20:30 Temperature Pulse Rate 55 L 60 Respiratory Rate Blood Pressure 149/63 H Pulse Oximetry 93 94 Oxygen Delivery Method 11/09/23 20:54 11/09/23 21:00 11/09/23 21:01 Temperature Pulse Rate 60 54 L Respiratory Rate 18 Blood Pressure 149/63 H 135/63 Pulse Oximetry 98 97 Oxygen Delivery Method 11/09/23 21:01 11/09/23 21:05 11/09/23 21:05 Temperature Pulse Rate 45 L 49 L Respiratory Rate Blood Pressure 124/60 Pulse Oximetry 98 96 Oxygen Delivery Method 11/09/23 21:10 11/09/23 21:10 11/09/23 21:15 Temperature Pulse Rate 50 L Respiratory Rate Blood Pressure 124/59 L 145/66 H Pulse Oximetry 97 Oxygen Delivery Method 11/09/23 21:15 11/09/23 21:20 11/09/23 21:20 Temperature Pulse Rate 53 L 49 L Respiratory Rate 15 Blood Pressure 149/66 H Pulse Oximetry 99 100 Oxygen Delivery Method 11/09/23 21:25 11/09/23 21:25 Temperature Pulse Rate 53 L Respiratory Rate 15 Blood Pressure 145/68 H Pulse Oximetry 98 Oxygen Delivery Method MDM - Fall MDM Narrative Medical decision making narrative: CC: Mechanical fall, landing on right elbow with right anterior shoulder dislocation Complicating co-morbidities: Age Data collected from: patient, son (who is also an orthopedic surgeon and data processing control clerk for our hospital today) Medical records reviewed: Primary care annual wellness visit from February of 2023 is reviewed Differential considered: Shoulder fracture, shoulder dislocation, humeral fracture, elbow injury Exam documented above, pertinent findings include: Alert and appropriate. Unable to move his right shoulder with fullness in the anterior portion of the shoulder. No other pertinent findings Imaging studies independently reviewed: Shoulder x-ray confirms anterior shoulder dislocation with displaced bone fragments and screw anchor from prior rotator cuff surgery adjacent to the glenoid Consultations: Briefly reviewed with on-call orthopedist (and patient's son) regarding the bone chips, felt that standard reduction was safe Treatments: Propofol sedation, reduction of shoulder. Re-evaluations:1015pm patient was able to ambulate to the bathroom, void spontaneously, pain is relatively well-controlled, sling is in place questions are answered. He is safe for discharge home. Discussion: 83-year-old gentleman with mechanical fall right anterior shoulder dislocation reduced with procedural sedation without complication. He has had prior surgery on that shoulder and postreduction films show that the anchoring screw is malpositioned. There is some bruising but he is neurovascularly intact. We discussed pain control including Tylenol and Percocet. Reviewed need for stool softener with Percocet, ice, sling use, orthopedic follow up and likely is going to need MRI for further evaluation of the soft tissue injury associated with this fall and dislocation. Tolerated the procedure and sedation well. He was awake, alert, able to eat and drink prior to discharge. Findings reviewed with patient's son and his . He is safe for discharge home Discharge Plan Departure Patient Disposition: Home Clinical Impression: Dislocation of shoulder, anterior, right, closed Qualifiers: Encounter type: initial encounter Qualified Code(s): S43.014A - Anterior dislocation of right humerus, initial encounter Glenoid fracture of shoulder Qualifiers: Encounter type: initial encounter Fracture type: closed Laterality: right Qualified Code(s): S42.141A - Displaced fracture of glenoid cavity of scapula, right shoulder, initial encounter for closed fracture Fall Qualifiers: Encounter type: initial encounter Qualified Code(s): W19.XXXA - Unspecified fall, initial encounter Instructions: DI for Shoulder Dislocation Activity Restrictions/Additional Instructions: Thank you for coming in today I am glad you did not have any additional injuries with your mechanical fall. You did dislocate your shoulder and there is some small bone fragments in the joint surrounding your shoulder. You were sedated with propofol in the shoulder was put back into place. You clearly have torn more of the tendons and ligaments around the joint and the previous shoulder surgery that you had has been disrupted. You do need to keep your arm in a sling, it is going to be more painful over the next couple of days. I expect are going to note quite a bit of bruising and swelling. Ice to the area can be helpful Using 400 mg of ibuprofen (2 [id number] pills) and 1 Tylenol every 6 hours can be very helpful in controlling pain. For severe pain using 400 mg of ibuprofen and 1 Percocet which has Tylenol and oxycodone in it can be helpful with the initial pain. Percocet does have oxycodone which is a narcotic. It will make you constipated. You do need to take a stool softener every day that you use Percocet. It can also make you increasingly unsteady and increase your risk for falls so use it sparingly You do have some small abrasions to your elbow, please keep these wounds clean, antibiotic ointment and a Band-Aid for a day or 2 we will be helpful. If there is any sign of worsening redness or infection at these areas you do need to be re-evaluated. . You will need follow up for definitive evaluation and treatment with [facility]. Please call their office at [phone] tomorrow morning to schedule a follow up appointment. You can explain to them that you are in the emergency department and had a right shoulder dislocation with glenoid fracture. If you feel that you are getting worse, you are noticing new findings or have additional problems it would be appropriate to return to the emergency department Prescriptions: New oxycodone-acetaminophen 5-325 mg tablet 1 tab PO Q6H PRN (Reason: pain) Qty: 10 0RF No Action benzonatate 200 mg capsule 200 mg PO BID PRN (Reason: cough) Qty: 28 0RF fluticasone propionate [Flonase Allergy Relief] 50 mcg/actuation spray,suspension 1 spray intranasal Q12H Qty: 16 0RF Rx Instructions: administer into each nostril rosuvastatin 10 mg tablet 10 mg PO DAILY Qty: 90 3RF mefloquine 250 mg tablet 250 mg PO QWEEK Qty: 10 1RF azithromycin 250 mg tablet See Rx Instructions PO .COMPLEX Qty: 6 0RF Rx Instructions: For 250 mg dose pack: take 500 mg today (day 1), then 250 mg for 4 days (days 2-5) PO Referrals: Juliano Chaves MD [Primary Care Provider] - Stand Alone Forms: Patient Portal/API
[2023-11-09] MEDS: propofoL 200 MG/20 ML VIAL IV (20:49)
[2023-11-09] MEDS: SODIUM CHLORIDE 0.9% 1,000 ML 1000 ML IV (21:17)
[2023-11-09] MEDS: OXYCODONE/APAP 5/325 PREPACK 1 BOTTLE MISC (22:39)
[2023-11-09] MEDS: OXYCODONE/ACETAMINOPHEN 5/325 TABLET 1 TAB PO (22:39)
[2023-11-09] MEDS: KETOROLAC 30 MG/ML VIAL 7.5 MG IV (22:39)
== END 2023-11-09 22:51 | disposition home or self-care (01) ==
PROVIDERS: Emergency Provider Emergency Medicine; Family Provider Internal Medicine; PCP Internal Medicine
DX: S43.014A Anterior dislocation of right humerus, initial encounter (principal); S42.141A Displaced fracture of glenoid cavity of scapula, right shoulder, initial encounter for closed fracture; W01.0XXA Fall on same level from slipping, tripping and stumbling without subsequent striking against object, initial encounter
CPT/HCPCS: 23575; 73020; 73030; 96361; 96374; 96375; 99152; 99284; J1170; J1885; J2704

== ENCOUNTER → 2023-11-17 16:20 | Outpatient (CLI) | payer MEDICARE, SELFPAY ==
--- NOTE | 2023-11-17 16:21 | DI.MRI.S_ITS ---
PROCEDURE: MR SHOULDER RT WO CON INDICATIONS: COMPLETE ROTATOR CUFF TEAR TECHNIQUE: Noncontrast oblique coronal T2 fast spin echo with fat saturation, oblique sagittal T1 spin echo and T2 fast spin echo with fat saturation, axial T1 spin echo and T2 fast spin echo with fat saturation through the shoulder. COMPARISON: [facility], CR, XR SHOULDER RT 1V, 11/09/2023, 20:50. [facility], MR, SHOULDER WITHOUT CONTRAST, 03/21/2014, 12:56. FINDINGS: Image quality: Somewhat limited evaluation given patient motion. Rotator cuff: Full-thickness, full width tear of the supraspinatus and infraspinatus, at the footprint, with tendon retraction to the level of the mid humeral head. Heterotopic ossification measuring 2.1 cm at the junction of the supraspinatus and infraspinatus. The teres minor is unremarkable. Full-thickness, full width tear of the subscapularis with tendon retraction to the level of the glenoid. Diffuse muscle edema of the supraspinatus, infraspinatus, and the subscapularis. Severe fatty atrophy of the infraspinatus. Mild atrophy of the supraspinatus. Bones and bursae: Mild degenerative changes acromioclavicular joint. Type 1 acromion. No os acromiale. Mild subacromial/subdeltoid bursitis. Cortical irregularity at the greater tuberosity with marked marrow edema, favoring reactive. The rotator cuff suture anchor is not visualized at the great tuberosity. Susceptibility artifact about the superior medial humeral head, likely representing the displaced rotator repair suture anchor (series 7, image 15). Capsule and soft tissues: Diffuse labral tear degeneration. Intra-articular, medial dislocation of the extra-articular biceps tendon. Heterotopic ossification of the intra-articular biceps tendon. Small glenohumeral effusion. Marked soft tissue edema about the glenohumeral joint. IMPRESSION: 1. Status post rotator cuff repair with intra-articular displacement of the suture anchor. 2. Full-thickness tear of the supraspinatus, infraspinatus, and the subscapularis. 3. Intra-articular medial dislocation of the extra-articular biceps tendon. 4. Marked soft tissue edema about the glenohumeral joint. 5. Cortical irregularity at the greater tuberosity, which may be partially postprocedural. Marked marrow edema at the greater tuberosity, reactive. Dictated by: Sharon Terry M.D. on 11/18/2023 at 11:58 Approved by: Sharon Terry M.D. on 11/18/2023 at 12:10
== END ==
LOC: MRI 16:20
PROVIDERS: Family Provider Internal Medicine; PCP Internal Medicine; Referring Provider Physician Assistant; Visit Provider Physician Assistant
DX: S43.014A Anterior dislocation of right humerus, initial encounter (principal); S46.011A Strain of muscle(s) and tendon(s) of the rotator cuff of right shoulder, initial encounter; M67.813 Other specified disorders of tendon, right shoulder; M25.411 Effusion, right shoulder; X58.XXXA Exposure to other specified factors, initial encounter
CPT/HCPCS: 73221

== ENCOUNTER → 2024-02-03 15:04 | Outpatient (CLI) | payer MEDICARE, SELFPAY ==
--- NOTE | 2024-02-03 15:39 | EKG_ITS ---
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
[2024-02-03 16:58] LABS: Add Manual Diff / Slide Review NO; Basophils Absolute Auto 0 /uL (0-100); Basophils Percent Auto 0.6 % (0-2); Eosinophils Absolute Auto 200 /uL (0-450); Eosinophils Percent Auto 3.1 % (2-4); Hematocrit 39.6 % (41-53); Hemoglobin 13.3 g/dL (13.5-17.5); Lymphocytes Absolute Auto 1000 /uL (1100-4500); Lymphocytes Percent Auto 17.6 % (25-40); Mean Corpuscular HGB Conc 33.6 % (30-36); Mean Corpuscular Hemoglobin 32.1 PG (26-34); Mean Corpuscular Volume 95.5 fL (80-100); Monocytes Absolute Auto 400 /uL (0-900); Monocytes Percent Auto 6.7 % (3-14); Neutrophils Absolute Auto 3900 /uL (1500-7000); Platelet Count 163 X10^3/uL (150-400); Red Blood Cell Count 4.15 X10^6/uL (4.5-5.9); Red Cell Distribution Width 13.6 % (11.6-14.8); White Blood Cell Count 5.5 X10^3/uL (4.5-11.0)
[2024-02-03 17:23] LABS: Blood Urea Nitrogen 36 mg/dL (9-20); Calcium 9.3 mg/dL (8.4-10.2); Carbon Dioxide 28 mmol/L (22-32); Chloride 101 mmol/L (98-107); Estimated Glomerular Filt Rate > 60 mL/min (>60); Glucose 87 mg/dL (80-110); HEMOLYSIS < 15 (0-50); Potassium 4.1 mmol/L (3.4-5.1); Sodium 134 mmol/L (137-145)
== END ==
LOC: LAB 15:05
PROVIDERS: Family Provider Internal Medicine; PCP Internal Medicine; Referring Provider Orthopaedic Surgery; Visit Provider Orthopaedic Surgery
DX: Z01.818 Encounter for other preprocedural examination (principal); E78.5 Hyperlipidemia, unspecified; Z01.812 Encounter for preprocedural laboratory examination
CPT/HCPCS: 36415; 80048; 85025; 93005

== ENCOUNTER → 2024-02-07 13:42 | Outpatient (CLI) | payer MEDICARE, SELFPAY ==
--- NOTE | 2024-02-07 13:43 | DI.CT.S_ITS ---
PROCEDURE: CT UE RT WO CON INDICATIONS: ANTERIOR DISLOCATION RT HUMERUS TECHNIQUE: Noncontrast 0.75 mm thick sections acquired from the acromioclavicular joint to the inferior scapula, with coronal and sagittal reformatting. COMPARISON: None. FINDINGS: Image quality: Excellent. Bones: Postsurgical changes are noted in right superior anterior glenoid likely represent prior labral repair. Fragmented appearance involving superior anterior glenoid adjacent to the surgical screw with increased lucency concerning for hardware loosening and age indeterminate perihardware fracture in this area. Large chronic appearing defect involving lateral aspect of superior humeral head is seen. Superior migration of humeral head in relation to glenoid is also noted. There is moderate acromioclavicular joint and glenohumeral joint osteoarthritis. No suspicious bony lesions. The visualized right upper to mid ribs are intact. Soft tissues: There is suggestion of moderate joint effusion and subacromial subdeltoid bursal fluid. Corticated calcifications are noted within subacromial joint space and within subscapularis tendon suggestive of calcific tendinitis involving supraspinatus, infraspinatus and subscapularis tendons. No definite calcified intra-articular loose bodies. No drainable fluid collection. The visualized right lung field is clear. IMPRESSION: 1. Prior surgery involving superior anterior glenoid with postsurgical changes. There is suggestion of loosening of the surgical screw with age indeterminate perihardware fracture with fragmented appearance involving superior anterior glenoid. 2. Chronic appearing large cortical defect involving lateral aspect of superior humeral head. No definite acute fracture or dislocation. No suspicious bony lesions. Moderate acromioclavicular joint and glenohumeral joint osteoarthritis. 3. No definite full-thickness rotator cuff tendon rupture. Moderate joint effusion and subacromial subdeltoid bursal fluid. No definite calcified intra-articular loose bodies. 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 Dictated by: Raheem Atwood M.D. on 02/08/2024 at 12:14 Approved by: Raheem Atwood M.D. on 02/08/2024 at 12:27
== END ==
PROVIDERS: Family Provider Internal Medicine; PCP Internal Medicine; Referring Provider Orthopaedic Surgery; Visit Provider Orthopaedic Surgery
DX: S43.014A Anterior dislocation of right humerus, initial encounter (principal); M19.011 Primary osteoarthritis, right shoulder; M25.411 Effusion, right shoulder
CPT/HCPCS: 73200

== ENCOUNTER → 2024-04-01 08:56 | Outpatient (CLI) | payer MEDICARE, SELFPAY ==
[2024-04-01 10:18] LABS: HEMOLYSIS < 15 (0-50)
[2024-04-01 10:29] LABS: Blood Urea Nitrogen 33 mg/dL (9-20); Calcium 9.5 mg/dL (8.4-10.2); Carbon Dioxide 27 mmol/L (22-32); Chloride 103 mmol/L (98-107); Cholesterol 153 mg/dL (140-199); Estimated Glomerular Filt Rate > 60 mL/min (>60); Glucose 103 mg/dL (80-110); HDL Cholesterol 96 mg/dL (40-60); LDL Cholesterol Calculated 46 mg/dL (<100); Potassium 4.5 mmol/L (3.4-5.1); Sodium 136 mmol/L (137-145); Triglycerides 53 mg/dL (35-150)
[2024-04-01 10:33] LABS: Hemoglobin A1C% w Est Avg Glu 5.4 % (4.0-6.0)
[2024-04-01 18:55] LABS: Prostate Specific Antigen 0.526 ng/mL (0.10-4.00)
== END ==
PROVIDERS: Family Provider Internal Medicine; PCP Internal Medicine; Referring Provider Internal Medicine; Visit Provider Internal Medicine
DX: R73.01 Impaired fasting glucose (principal); E78.2 Mixed hyperlipidemia; N40.1 Benign prostatic hyperplasia with lower urinary tract symptoms; N13.8 Other obstructive and reflux uropathy
CPT/HCPCS: 36415; 80048; 80061; 83036; 84153

== ENCOUNTER 2024-05-09 16:22 | Emergency (ER) | payer MEDICARE, SELFPAY ==
[2024-05-09 16:25] VITALS: BP 126/79; PULSE 97; RESP 18; TEMP 36.7; O2SAT 96; BMI 20.9
--- NOTE | 2024-05-09 16:37 | DI.CT.S_ITS ---
PROCEDURE: CT CERVICAL SPINE WO CON INDICATIONS: fall, hit head, no thinners TECHNIQUE: Noncontrast 3 mm thick sections acquired from the skull base to the T4 level. Sagittal and coronal reformats were then constructed. For radiation dose reduction, the following was used: automated exposure control, adjustment of mA and/or kV according to patient size. COMPARISON: None. FINDINGS: Image quality: Excellent. Bones: No fractures or dislocations. Degenerative endplate changes, loss of disc height and bilateral uncovertebral hypertrophic changes are noted throughout cervical spine more notably at C6-7 level. There is [id number] central canal stenosis and bilateral neural foraminal narrowing. Visualized superior ribs are intact. Soft tissues: Prevertebral soft tissues are normal in thickness. No paravertebral hematomas. No apical pneumothoraces. IMPRESSION: 1. No displaced fracture or traumatic subluxation. 2. Degenerative disc disease throughout cervical spine as above. Dictated by: Raheem Atwood M.D. on 05/09/2024 at 16:54 Approved by: Raheem Atwood M.D. on 05/09/2024 at 16:54
--- NOTE | 2024-05-09 16:37 | DI.CT.S_ITS ---
PROCEDURE: CT HEAD/BRAIN WO CON INDICATIONS: fall, hit head, no thinners TECHNIQUE: Noncontrast 4.5 mm thick angled axial sections acquired from the foramen magnum to the vertex, with coronal and sagittal reformats. For radiation dose reduction, the following was used: automated exposure control, adjustment of mA and/or kV according to patient size. COMPARISON: None. FINDINGS: Image quality: Diagnostic. CSF spaces: Basal cisterns are patent. No extra-axial fluid collections. The ventricles are symmetric in size and shape. Brain: No intracranial bleeds or masses. There is cerebral volume loss for age, with resultant ventricular and sulcal prominence. There are periventricular and deep white matter chronic small vessel ischemic changes. There is intracranial internal carotid artery atherosclerosis. Skull and face: Calvarium and visualized facial bones appear intact, without suspicious lesions. Left-sided periorbital scalp contusion. Orbital rim appears intact. No intraconal or extraconal fat stranding to suggest hematoma. Sinuses: Visualized sinuses and mastoids are clear. IMPRESSION: No acute intracranial pathology. Left-sided periorbital scalp contusion. Orbital rim appears intact. No intraconal or extraconal fat stranding to suggest hematoma. Dictated by: Arthur Wilson M.D. on 05/09/2024 at 16:51 Approved by: Arthur Wilson M.D. on 05/09/2024 at 16:53
--- NOTE | 2024-05-09 16:45 | DI.CT.S_ITS ---
PROCEDURE: CT FACIAL BONES WO CON INDICATIONS: fall TECHNIQUE: Noncontrast 2.5 mm thick axial images acquired from the mandible through the frontal sinuses, with coronal and sagittal reformatting. For radiation dose reduction, the following was used: automated exposure control, adjustment of mA and/or kV according to patient size. COMPARISON: None. FINDINGS: Image quality: Excellent. Bones and teeth: Orbital nieves are intact. Sinus nieves show no fracture or deformity. Nasal bones and septum are intact. Visualized portions of the mandible demonstrate no fractures or subluxation. Zygomatic arches are intact. Pterygoid plates are intact. Visualized portions of the skull base and auditory canals are intact. Sinuses: Paranasal sinuses are aerated, without fluid levels, mucosal thickening, or mucoceles. Mastoid air cells are aerated. Soft tissues: Left-sided periorbital edema. Vascular: Visualized vascular structures appear normal in the absence of contrast. Bony vascular foramina and canals are intact. IMPRESSION: Left-sided periorbital edema without ocular injury. Approved by: Arthur Wilson M.D. on 05/09/2024 at 16:55
--- NOTE | 2024-05-09 17:18 | ED.FALL ---
HPI - Fall <Cory Stovall PA-C - Last Filed: 05/09/24 18:42> General Chief Complaint: Fall Stated Complaint: GLF, No Thinners Time Seen by Provider: 05/09/24 16:45 Source: patient Mode of arrival: Ambulatory History of Present Illness HPI Narrative: 84-year-old gentleman with a past medical history of hyperlipidemia presents to the ED status post a mechanical fall sustained just prior to arrival. Patient was on a walk, when he tripped on the sidewalk falling forward. Patient struck his left brow and left knee. Patient was able to walk back home which was 1.5 miles from where he fell. No loss of consciousness. Patient is not on blood thinners. Patient has a small scrape on his left knee, however he endorses minimal discomfort to the knee. Related Data Previous Rx's Medication Instructions Recorded benzonatate 200 mg capsule 200 mg PO BID PRN cough #28 caps 09/09/23 fluticasone propionate 50 1 spray intranasal Q12H #16 grams 09/09/23 mcg/actuation nasal spray,suspension (Flonase Allergy Relief) azithromycin 250 mg tablet See Rx Instructions PO .COMPLEX #6 10/01/23 tabs mefloquine 250 mg tablet 250 mg PO QWEEK #10 tabs 10/01/23 oxycodone-acetaminophen 5 mg-325 1 tab PO Q6H PRN pain #10 tabs 11/09/23 mg tablet rosuvastatin 10 mg tablet 10 mg PO DAILY #90 tabs 03/15/24 Allergies Allergy/AdvReac Type Severity Reaction Status Date / Time ciprofloxacin AdvReac Tendonitis Verified 05/09/24 16:25 Review of Systems <Cory Stovall PA-C - Last Filed: 05/09/24 18:42> Constitutional Constitutional: Denies chills, Denies fatigue, Denies fever(s), Denies frequent falls, Denies lethargy and Denies weakness Eyes Eyes: Denies change in vision, Denies eye discharge, Denies irritation and Denies loss of vision ENT Ears, Nose, Mouth, and Throat: Denies change in voice, Denies dizziness, Denies neck pain, Denies sore throat and Denies throat swelling Cardiovascular Cardiovascular: Denies chest pain, Denies irregular heart rhythm, Denies lightheadedness, Denies palpitations, Denies dyspnea, Denies dyspnea on exertion and Denies orthopnea Respiratory Respiratory: Denies cough, Denies dyspnea, Denies dyspnea on exertion and Denies wheezing Gastrointestinal Gastrointestinal: Denies abdominal pain, Denies change in bowel habits, Denies diarrhea, Denies nausea and Denies vomiting Musculoskeletal Musculoskeletal: Denies neck pain and Denies numbness Integumentary/Breasts Skin/Breast: Denies pruritus, Denies erythema, Denies rash and Reports wounds Neurologic Neurologic: Denies behavioral changes, Denies confusion, Denies dizziness, Denies frequent falls, Denies loss of vision, Denies numbness and Denies weakness Psychiatric Psychiatric: Denies anxiety, Denies behavioral changes, Denies confusion, Denies depression, Denies homicidal ideation and Denies suicidal ideation Endocrine Endocrine: Denies fatigue, Denies flushing and Denies palpitations Hematologic/Lymphatic Hematologic/Lymphatic: Denies easy bruising Allergic/Immunologic Allergic/Immunologic: Denies urticaria, Denies throat swelling and Denies wheezing Patient History <Cory Stovall PA-C - Last Filed: 05/09/24 18:42> Medical History Infrarenal abdominal aortic aneurysm (AAA) without rupture Polyneuropathy, unspecified History of colonic polyps Chronic low back pain Impaired fasting glucose PVC (premature ventricular contraction) Mixed hyperlipidemia Easy bruisability Hepatitis A (1950) Heart murmur Mitral regurgitation Hernia Inguinal hernia, left Surgical History Hx of repair of left rotator cuff (05/08/14) Hx of repair of right rotator cuff (08/09/18) H/O left inguinal hernia repair (10/02/15) H/O right inguinal hernia repair Family History Mother Cancer Social History marital status: household members: spouse occupational status: previously employed Smoking Status: Never smoker alcohol intake: never Smoking Status: Never smoker alcohol intake frequency: other Exam <Cory Stovall PA-C - Last Filed: 05/09/24 18:42> Narrative Exam Narrative: Const General:?cooperative, healthy appearing and comfortable HENMT Head:?normal to inspection Ears:?hearing grossly normal bilaterally Nose:?external nose normal Face and sinus:? There is a 4cm laceration to the left eyebrow. There is significant soft tissue swelling and tenderness. Bleeding controlled with pressure. Mouth:?oral mucosae normal Throat:?posterior oropharynx normal Eyes General:?appearance normal, both eyes and all related structures Neck Neck:?normal visual inspection and no lymphadenopathy noted Resp Effort & Inspection:?normal respiratory effort Auscultation:?clear to auscultation bilaterally Cardio Rate:?regular rate Rhythm:?regular rhythm Neuro General:?patient alert, patient awake and patient oriented x3 Initial Vital Signs Initial Vital Signs: Vital Signs Temperature 98.1 F 05/09/24 16:25 Pulse Rate 97 H 05/09/24 16:25 Respiratory Rate 18 05/09/24 16:25 Blood Pressure 126/79 05/09/24 16:25 Pulse Oximetry 96 05/09/24 16:25 Oxygen Delivery Method Room Air 05/09/24 16:25 <Carlene Villanueva MD - Last Filed: 05/10/24 08:36> Initial Vital Signs Initial Vital Signs: Vital Signs Temperature 98.1 F 05/09/24 16:25 Pulse Rate 97 H 05/09/24 16:25 Respiratory Rate 18 05/09/24 16:25 Blood Pressure 126/79 05/09/24 16:25 Pulse Oximetry 96 05/09/24 16:25 Oxygen Delivery Method Room Air 05/09/24 16:25 Procedures <Cory Stovall PA-C - Last Filed: 05/09/24 18:42> Laceration Repair Laceration 1: Site: face Side (If applicable): left Size (cm): 4 Description: linear Local Anesthetic: lidocaine 1% and with epi Amount of anesthesia used (mL): 2 Pre-repair: wound explored, irrigated extensively and deep structures intact Skin layer closed with: nylon Skin layer suture size: 5-0 Number of sutures: 5 Technique: simple, interrupted Course <Cory Stovall PA-C - Last Filed: 05/09/24 18:42> Orders Ordered: Discontinued Medications Acetaminophen (Acetaminophen 325 Mg Tablet) 975 mg PO NOW ONE Stop: 05/09/24 18:03 Last Admin: 05/09/24 18:09 Dose: 975 mg Documented By: BON Vital Signs Vital signs: Vital Signs - 8 hr 05/09/24 16:25 05/09/24 18:14 Temperature 98.1 F Pulse Rate 97 H 74 Respiratory Rate 18 18 Blood Pressure 126/79 129/64 Pulse Oximetry 96 95 Oxygen Delivery Method Room Air Room Air <Carlene Villanueva MD - Last Filed: 05/10/24 08:36> Orders Ordered: Discontinued Medications Acetaminophen (Acetaminophen 325 Mg Tablet) 975 mg PO NOW ONE Stop: 05/09/24 18:03 Last Admin: 05/09/24 18:09 Dose: 975 mg Documented By: BON Vital Signs Vital signs: Vital Signs - 8 hr 05/09/24 16:25 05/09/24 18:14 Temperature 98.1 F Pulse Rate 97 H 74 Respiratory Rate 18 18 Blood Pressure 126/79 129/64 Pulse Oximetry 96 95 Oxygen Delivery Method Room Air Room Air MDM - Fall <Cory Stovall PA-C - Last Filed: 05/09/24 18:42> MDM Narrative Medical decision making narrative: 84-year-old gentleman with a past medical history of hyperlipidemia presents to the ED status post a mechanical fall sustained just prior to arrival. CT scans of the head, cervical spine, facial bones were obtained. Head and facial CT show left-sided periorbital edema without ocular injury. Orbital rim appears intact. No intraconal or extraconal fat stranding to suggest hematoma. Patient's tetanus is up-to-date. Laceration was repaired with 5 sutures. Sutures will need to be removed in 5-7 days. Suture removal, wound care, signs of infection discussed with patient. ED return precautions were discussed with patient. Patient verbalized understanding. Medical records reviewed: Yes Discharge Plan Departure Patient Disposition: Home Clinical Impression: Laceration Instructions: DI for Laceration Repair, How to Prevent Falls Activity Restrictions/Additional Instructions: You were evaluated in the ED today for a head injury from a fall. Your CT scans were normal. You have a laceration to your left brow that has been repaired with 5 sutures. Please keep the wound clean and dry for the 1st 24 hours, following which you may wash gently with soap and water. Please dry well prior to putting on a clean dressing. The sutures will need to be removed in 5-7 days. You may return to the ED, go to a walk-in clinic, or go to your PCP for suture removal. As with all wounds, there is a chance of infection. Please monitor for signs of infection such as worsening swelling, redness, pain, warmth, discharge. Return to the ED if you note any signs of infection. Was my pleasure taking care of your today, wish you well, and stay safe! Prescriptions: No Action benzonatate 200 mg capsule 200 mg PO BID PRN (Reason: cough) Qty: 28 0RF fluticasone propionate [Flonase Allergy Relief] 50 mcg/actuation spray,suspension 1 spray intranasal Q12H Qty: 16 0RF Rx Instructions: administer into each nostril mefloquine 250 mg tablet 250 mg PO QWEEK Qty: 10 1RF azithromycin 250 mg tablet See Rx Instructions PO .COMPLEX Qty: 6 0RF Rx Instructions: For 250 mg dose pack: take 500 mg today (day 1), then 250 mg for 4 days (days 2-5) PO rosuvastatin 10 mg tablet 10 mg PO DAILY Qty: 90 3RF oxycodone-acetaminophen 5-325 mg tablet 1 tab PO Q6H PRN (Reason: pain) Qty: 10 0RF Referrals: Juliano Chaves MD [Primary Care Provider] - Stand Alone Forms: Patient Portal/API/Survey ED Sign-out <Carlene Villanueva MD - Last Filed: 05/10/24 08:36> Cosign ED Attending Radha Attestation: I was immediately available in the department for consultation throughout this patient's visit. Carlene Villanueva MD
[2024-05-09] MEDS: ACETAMINOPHEN 325 MG TABLET 975 MG PO (18:09)
[2024-05-09 18:14] VITALS: BP 129/64; PULSE 74; RESP 18; O2SAT 95
== END 2024-05-09 18:15 | disposition home or self-care (01) ==
PROVIDERS: Emergency Provider Student in an Organized Health Care Education/Training Program; Family Provider Internal Medicine; PCP Internal Medicine
DX: S01.112A Laceration without foreign body of left eyelid and periocular area, initial encounter (principal); S89.92XA Unspecified injury of left lower leg, initial encounter; W01.0XXA Fall on same level from slipping, tripping and stumbling without subsequent striking against object, initial encounter
CPT/HCPCS: 12013; 70450; 70486; 72125; 99283; 99284

== ENCOUNTER → 2025-03-01 12:50 | Outpatient (CLI) | payer MEDICARE, SELFPAY ==
--- NOTE | 2025-03-01 12:51 | DI.US.S_ITS ---
PROCEDURE: US RETRO PERITONEAL LIMITED
== END ==
LOC: US 12:50
PROVIDERS: Family Provider Internal Medicine; PCP Internal Medicine; Referring Provider Internal Medicine Cardiovascular Disease; Visit Provider Internal Medicine Cardiovascular Disease
DX: I71.43 Infrarenal abdominal aortic aneurysm, without rupture (principal); I72.3 Aneurysm of iliac artery
CPT/HCPCS: 76775

== ENCOUNTER → 2025-03-20 10:45 | Outpatient (CLI) | payer MEDICARE, SELFPAY ==
[2025-03-20 11:33] LABS: Blood Urea Nitrogen 29 mg/dL (9-20); Calcium 9.1 mg/dL (8.4-10.2); Carbon Dioxide 27 mmol/L (22-32); Chloride 105 mmol/L (98-107); Cholesterol 133 mg/dL (140-199); Estimated Glomerular Filt Rate > 60 mL/min (>60); Glucose 94 mg/dL (70-99); HDL Cholesterol 95 mg/dL (40-60); HEMOLYSIS < 15 (0-50); Potassium 4.1 mmol/L (3.4-5.1); Sodium 139 mmol/L (137-145); Triglycerides 54 mg/dL (35-150)
[2025-03-20 11:35] LABS: Hemoglobin A1C% w Est Avg Glu 5.6 % (4.0-6.0)
[2025-03-20 12:03] LABS: Prostate Specific Antigen 0.525 ng/mL (0.10-4.00)
== END ==
PROVIDERS: PCP Internal Medicine; Referring Provider Internal Medicine; Visit Provider Internal Medicine
DX: R73.01 Impaired fasting glucose (principal); E78.2 Mixed hyperlipidemia; N40.1 Benign prostatic hyperplasia with lower urinary tract symptoms; N13.8 Other obstructive and reflux uropathy
CPT/HCPCS: 36415; 80048; 80061; 83036; 84153; 84450